=== PATIENT | male | born 1935 | race Caucasian/White ===

== ENCOUNTER 2018-03-16 16:09 | Inpatient (IN) ==
[2018-03-16] MEDS ORDERED: TORADOL IM ONE (17:25)
--- NOTE | 2018-03-16 17:26 | Diag Imaging Result Doc PS360 ---
XRAY PELVIS W/HIP 2-3VW LT - 03/16/2018 INDICATION: fall TECHNIQUE: Four views COMPARISON: 12/13/2012 FINDINGS: There is nondisplaced, impacted fracture at the left femoral neck. There is bilateral hip osteoarthritis. There are vascular stents in the distal aorta and pelvic arteries. IMPRESSION: Nondisplaced subcapital left hip fracture. Electronically signed by Kash Engle 03/16/2018 5:24 PM
--- NOTE | 2018-03-16 17:27 | Diag Imaging Result Doc PS360 ---
SHOULDER-LEFT - 03/16/2018 INDICATION: fall TECHNIQUE: Three views COMPARISON: None FINDINGS: Bones are intact and normally aligned. There is significant hypertrophic degeneration of the acromioclavicular joint. There is mild degeneration of the glenohumeral joint. IMPRESSION: No acute disease. Electronically signed by Kash Engle 03/16/2018 5:25 PM
--- NOTE | 2018-03-16 17:47 | PROVIDER DOCUMENTATION ---
This chart was entered by Al Rubio Scribe, acting as scribe for Nadja Hodge MD. HPI-Musculoskeletal Pain/Inj - GENERAL Source: patient - HX OF PRESENT ILLNESS-MUSKULOSKELTAL Quality of Pain: reports: aching Severity in ED: severe Onset/Duration: this afternoon Timing: still present Modifying Factors: improves with: nothing Any recent injury?: No - FALL INJURY Location of Pain/Injury: reports: upper extremity, pelvis Pain Radiation: reports: no radiation Reason for Fall: reports: tripped Symptoms prior to fall:: reports: none Loss of Consciousness: no loss of consciousness Injury Associated Symptoms: reports: trouble walking (pain with walking). denies: back/neck pain, dizziness, muscle aches, shortness of breath, unable to bear weight <Nadja Hodge - Last Filed: 03/16/18 19:36> <Scottie Diaz - Last Filed: 03/16/18 22:04> - GENERAL Chief Complaint: Hip Injury Stated Complaint: FALL/HURT HIP Time Seen by Provider: 03/16/18 17:15 - HX OF PRESENT ILLNESS-MUSKULOSKELTAL Nature of Presenting Problem: Pt is a 82 y/o M reports he tripped off the curb landing on his left hip and left shoulder this afternoon.. Pt complains of pain in each of them. The friend presents says the Medic and school bus driver had to help him get up and the pt did not want to come to the ED at that time. (Nadja Hodge) Pt is a 82 y/o M reports he tripped off the curb landing on his left hip and left shoulder this afternoon.. Pt complains of pain in each of them. The friend presents says the Medic and school bus driver had to help him get up and the pt did not want to come to the ED at that time. (Al Rubio) Review of Systems - Adult - REVIEW OF SYSTEMS - ADULT Constitutional: denies: chills, fever Eyes: reports: no symptoms reported Ears, Nose, Mouth & Throat: reports: no symptoms reported Cardiovascular: reports: no symptoms reported Respiratory: denies: cough, shortness of breath, wheezing Gastrointestinal: denies: abdominal pain, nausea, vomiting Genitourinary: reports: no symptoms reported Musculoskeletal: reports: joint pain (left hip and shoulder). denies: back pain , neck pain Integumentary: reports: no symptoms reported Neurological: denies: dizziness/vertigo, headache/migraines Psychiatric: reports: no symptoms reported Endocrine: reports: no symptoms reported Hematologic/Lymphatic: reports: no symptoms reported Allergic/Immunologic: reports: no symptoms reported All Other Systems: Reviewed and Negative <Nadja Hodge - Last Filed: 03/16/18 19:36> Past History - Adult - PAST MEDICAL HISTORY-ADULT Review of Records: reports: Old Records Reviewed, Nursing Assessment Review, Medications Reviewed Respiratory: reports: cancer (left lung) - PRIOR SURGERIES/PROCEDURES Surgical/Procedure History: reports: orthopedic (extremity), other (lobectomy) - IMMUNIZATION STATUS Childhood Immunizations: See Nurse Assessment Flu Vaccine: See Nurse Assessment - SOCIAL HISTORY Smoking: quit greater than 1 year Substance Use: none/never Living Situation: family <Nadja Hodge - Last Filed: 03/16/18 19:36> Physical Exam-Injury Related - Physical Exam-Injury Related Initial Vital Signs Reviewed: Yes General Appearance: appears well, alert, no apparent distress Eyes: PERRL/EOMI, pink conjunctivae Head, Ears, Nose, Mouth & Throat: moist mucous membranes, normal ENT inspection , TMs normal, pharynx normal Neck: full range of motion, supple, normal inspection Respiratory: lungs clear, normal breath sounds, no pleuratic chest pain, no respiratory distress, no accessory muscle use Cardiovascular: normal peripheral pulses, regular rate, rhythm Abdominal Exam: normal bowel sounds, non tender, soft Back Exam: normal inspection, no CVA tenderness Extremity: pelvis stable, tenderness (both shoulder and hip tender). negative: normal range of motion (pt had diffiuculty moving from wheel chair to strecther. Unable to lift his leg.) Integumentary: normal color, warm/dry Neurologic: grossly normal, no motor/sensory deficits Psych/Mental Status: normal mood/affect, normal thought content, normal thought process, oriented x 3 <Nadja Hodge - Last Filed: 03/16/18 19:36> Progress - PLAN OF CARE/RESULTS Result Diagrams: 03/16/18 18:20 03/16/18 18:20 - REASSESSMENT Reassessment #1 Time Reassessed: :35 (Ressessed by Dr Diaz) Status: unchanged (Pt complains the left hip still hurts. He also mentions that he is SOB after admission) - EKG 1 Time of EKG reading by physician:: 19:32 EKG Read and Signed by:: Scottie Diaz EKG Interpretation (*Must complete 3 of following elements*): Abnormal Rate: 96 Rhythm: NSR Comments: Nonspecific ST abnormality - XRAY 1 XRAY: Left XRAY Study: Hip Impression: Abnormal ( INDICATION: fall TECHNIQUE: Four views COMPARISON: 12/13/2012 FINDINGS: There is nondisplaced, impacted fracture at the left femoral neck. There is bilateral hip osteoarthritis. There are vascular stents in the distal aorta and pelvic arteries. IMPRESSION: Nondisplaced subcapital left hip fracture. Electronically signed by Kash Engle 03/16/2018 5:24 PM), See EMR Report 2 XRAY: Left XRAY Study: Shoulder Impression: Normal (INDICATION: fall TECHNIQUE: Three views COMPARISON: None FINDINGS: Bones are intact and normally aligned. There is significant hypertrophic degeneration of the acromioclavicular joint. There is mild degeneration of the glenohumeral joint. IMPRESSION: No acute disease. Electronically signed by Kash Engle 03/16/2018 5:25 PM), See EMR Report - CT/MRI 1 CT Study: Pelvis Impression: Abnormal (CT PELVIS W/O CONTRAST - 03/16/2018 INDICATION: fall with hip pain COMPARISON: X-rays from earlier today FINDINGS: There is an impacted nondisplaced fracture of the left femoral neck. No other fractures. No dislocation. There are stents in the distal aorta and both common iliac arteries. IMPRESSION: Nondisplaced subcapital left hip fracture. This exam was performed using automated exposure control, adjustment of mA or kV according to patient size, and/or use of iterative reconstruction technique Electronically signed by Kash Engle 03/16/2018 6:58 PM 03/16/18 9823 Interpreting Physician: Kash Engle MD Dictated Date/Time: 03/16/18 1301), See EMR Report - CONSULTS/PCP/HOSPITALIST Notification #1 *Consult/PCP/Hospitalist*: PCP, Dr Lange international affairs vice president for Dr Carrington- Time Discussed: 19:10 Reason/Comments: admit Consult Disposition: Will see in ED, Admit (accepts) #2 Consult: Ortho-Dr Xiao Time Discussed: 19:19 Consult Disposition: other (will consult) - CHANGE OF SHIFT REPORT (ED Provider) Report Given and Care Transferred to:: Dr Diaz Time of Transfer: 17:47 Items Pending: CT/MRI Results <Nadja Hodge - Last Filed: 03/16/18 19:36> - PLAN OF CARE/RESULTS Result Diagrams: 03/16/18 18:20 03/16/18 18:20 <Scottie Diaz - Last Filed: 03/16/18 22:04> - PLAN OF CARE/RESULTS Progress/Plan/Lab Results: Vital Signs - 8 hr 03/16/18 16:20 Temperature 98.5 F Pulse Rate 85 Respiratory Rate 18 Blood Pressure 136/88 O2 Sat by Pulse Oximetry 90 L Laboratory Results - last 24 hr 03/16/18 03/16/18 03/16/18 18:20 18:20 18:20 WBC 17.71 H RBC 4.65 L Hgb 14.7 Hct 44.0 MCV 94.6 MCH 31.6 H MCHC 33.4 RDW Std Deviation 14.9 H Plt Count 216 MPV 9.7 Immature Gran % (Auto) 0.3 Neut % (Auto) 85.9 H Lymph % (Auto) 8.4 L Beaver % (Auto) 5.1 Eos % (Auto) 0.2 Baso % (Auto) 0.1 Immature Gran # (Auto) 0.05 H Neut # (Auto) 15.22 H Lymph # (Auto) 1.49 Beaver # (Auto) 0.90 H Eos # (Auto) 0.04 Baso # (Auto) 0.01 PT INR PTT (Actin FS) Specimen Type Sample Site pH pCO2 pO2 HCO3 Base Excess Oxyhemoglobin ABG O2 Sat (Calculated) ABG O2 Saturation ABG Carboxyhemoglobin ABG Methemoglobin Ramakrishna Test A-a O2 Difference Total Hemoglobin Lactate Liter Flow Blood Gas Modality FiO2 % Sodium 142 Potassium 4.7 Chloride 103 Carbon Dioxide 25 Anion Gap 14 BUN 27 H Creatinine 1.1 Estimated GFR/1.73 m2 > 60 BUN/Creatinine Ratio 25 Glucose 130 H Calculated Osmolality 290 Calcium 9.5 Total Bilirubin 0.59 AST 19 ALT 13 Alkaline Phosphatase 57 Creatine Kinase Troponin T < 0.010 Qmq-B-Zihvhpeuxnb Pept Total Protein 7.8 Albumin 4.3 Globulin 3.5 Albumin/Globulin Ratio 1.2 03/16/18 03/16/18 03/16/18 18:20 18:20 18:20 WBC RBC Hgb Hct MCV MCH MCHC RDW Std Deviation Plt Count MPV Immature Gran % (Auto) Neut % (Auto) Lymph % (Auto) Beaver % (Auto) Eos % (Auto) Baso % (Auto) Immature Gran # (Auto) Neut # (Auto) Lymph # (Auto) Beaver # (Auto) Eos # (Auto) Baso # (Auto) PT 13.1 INR 0.92 PTT (Actin FS) 36.9 Specimen Type Sample Site pH pCO2 pO2 HCO3 Base Excess Oxyhemoglobin ABG O2 Sat (Calculated) ABG O2 Saturation ABG Carboxyhemoglobin ABG Methemoglobin Ramakrishna Test A-a O2 Difference Total Hemoglobin Lactate Liter Flow Blood Gas Modality FiO2 % Sodium Potassium Chloride Carbon Dioxide Anion Gap BUN Creatinine Estimated GFR/1.73 m2 BUN/Creatinine Ratio Glucose Calculated Osmolality Calcium Total Bilirubin AST ALT Alkaline Phosphatase Creatine Kinase 119 Troponin T Dxm-X-Vgsjgxooexo Pept 692 H Total Protein Albumin Globulin Albumin/Globulin Ratio 03/16/18 20:00 WBC RBC Hgb Hct MCV MCH MCHC RDW Std Deviation Plt Count MPV Immature Gran % (Auto) Neut % (Auto) Lymph % (Auto) Beaver % (Auto) Eos % (Auto) Baso % (Auto) Immature Gran # (Auto) Neut # (Auto) Lymph # (Auto) Beaver # (Auto) Eos # (Auto) Baso # (Auto) PT INR PTT (Actin FS) Specimen Type ARTERIAL Sample Site R RADIAL pH 7.33 L pCO2 42 pO2 84 HCO3 21.9 Base Excess -3.8 L Oxyhemoglobin 94.7 L ABG O2 Sat (Calculated) 20.7 ABG O2 Saturation 97.2 ABG Carboxyhemoglobin 1.80 ABG Methemoglobin 0.9 Ramakrishna Test YES A-a O2 Difference 577.0 Total Hemoglobin 15.5 Lactate 1.50 Liter Flow 15.0 Blood Gas Modality NRB FiO2 % 100.0 Sodium Potassium Chloride Carbon Dioxide Anion Gap BUN Creatinine Estimated GFR/1.73 m2 BUN/Creatinine Ratio Glucose Calculated Osmolality Calcium Total Bilirubin AST ALT Alkaline Phosphatase Creatine Kinase Troponin T Geu-C-Unlnqzovniy Pept Total Protein Albumin Globulin Albumin/Globulin Ratio Orders Category Date Time Status Admit - [facility] Routine AdmDCTranf 03/16/18 20:21 Active Luu Cath Insertion ORDERED Care 03/16/18 20:15 Active Repeat Vital Signs .Blood Pressure Care 03/16/18 19:36 Active io [Intake and Output As Ordered] Q 8-HR ASSESS Care 03/16/18 20:15 Active CHEST-PORTABLE [RAD] Stat Exams 03/16/18 19:[address] PELVIS W/O CONTRAST [CT] Stat Exams 03/16/18 17:22 Completed SHOULDER-LEFT [RAD] Stat Exams 03/16/18 16:30 Completed XRAY PELVIS W/HIP 2-3VW LT [RAD] Stat Exams 03/16/18 16:29 Completed ABG [RESP] Routine Lab 03/16/18 20:00 Completed ABG [RESP] Routine Lab 03/17/18 06:00 Ordered BASIC METABOLIC PANEL [CHEM] Routine Lab 03/17/18 06:00 Ordered BC [BLOOD CULTURE] [BLDCUL] Stat Lab 03/16/18 19:57 Results BNP [PRO B-NATRIURETIC PEPTIDE] Stat Lab 03/16/18 18:20 Completed CBC WITH DIFF [HEME] Routine Lab 03/17/18 06:00 Ordered CBC WITH ELECTRONIC DIFF [HEME] Stat Lab 03/16/18 18:20 Completed CMP [COMPREHENSIVE METABOLIC PANEL] [CHEM] Stat Lab 03/16/18 18:20 Completed Cardiac Profile [CK PROFILE] [SP CHEM] Stat Lab 03/16/18 20:50 Ordered PRO B-NATRIURETIC PEPTIDE Routine Lab 03/17/18 06:00 Ordered PT [PROTIME WITH INR] [COAG] Stat Lab 03/16/18 18:20 Completed PTT [COAG] Stat Lab 03/16/18 18:20 Completed TROPONIN T Stat Lab 03/16/18 18:20 Completed Albuterol 2.5MG/Ipratrop 0.5MG [Duoneb (A & A)] Med 03/16/18 19:38 Discontinued 3 ml INH NOW ONE Albuterol 2.5MG/Ipratrop 0.5MG [Duoneb (A & A)] Med 03/16/18 23:30 Active 3 ml INH RTQ4H Ketorolac [Toradol] Med 03/16/18 17:25 Discontinued 60 mg IM NOW ONE Metoprolol Succinate E.r. [Toprol Xl] Med 03/17/18 09:00 Active 100 mg PO DAILY Pantoprazole [Protonix] Med 03/16/18 21:00 Active 40 mg PO BID Aerosol Treatments Routine Oth 03/16/18 19:38 Active Aerosol Treatments Routine Oth 03/16/18 20:14 Active Aerosol Treatments Stat Oth 03/16/18 19:38 Active Aerosol Treatments Stat Oth 03/16/18 20:14 Active Transfer/Admit Order [TRANSFER] Routine Transfer 03/16/18 20:19 Completed Reviewed case with Dr Coleman, Hospitalist, for admission but he informed PCP is Dr Carrington. Jared requests to contact Dr Carrington for the attending. (Al Rubio) Shortly after admit called, pts nurse noted that he was getting SOB and applied oxygen. SOB workup started in ER. Dr Lange to [place] and aware of SOB. (Scottie Diaz) Departure - Departure Date of Disposition Decision: 03/16/18 Time of Disposition Decision: 19:15 Certified Medical Emergency: Emergent - Critical Care Note This patient required my direct & personal management of CC.: No <Najda Hodge - Last Filed: 03/16/18 19:36> <Scottie Diaz - Last Filed: 03/16/18 22:04> - Departure DIAGNOSIS: Pneumonia, CHF (congestive heart failure) Hip fracture, left Qualifiers: Encounter type: initial encounter Fracture type: closed Qualified Code(s): S72.002A - Fracture of unspecified part of neck of left femur, initial encounter for closed fracture Disposition: ADMITTED INPATIENT 09 Condition: Good Attestation - Physician/ ROBBIN Attestation Patient care was provided by Advanced Practice Provider:: No The physician spent face to face time with patient:: Yes Advanced Practice Provider documentation review:: Supervising physician onsite and consulted in the evaluation and care of this patient. The physician did have a face to face encounter with the patient. <Nadja Hodge - Last Filed: 03/16/18 19:36> This chart was documented by the indicated scribe, (Speegle,Al, Scribe) and accurately reflects the services I performed and decisions made by me, Nadja Hodge MD, as attested by the provider's signature.
[2018-03-16 18:41] LABS: BASO# 0.01 X1000 (0.0-0.2); BASO% 0.1 % (0.0-0.8); EOS# 0.04 X1000 (0.0-0.7); EOS% 0.2 % (0.0-10.0); HEMOGLOBIN 14.7 g/dL (14.0-18.0); IMM GRAN# 0.05 X1000 (0.0-0.04); IMM GRAN% 0.3 % (0.0-0.5); LYMPH# 1.49 X1000 (1.2-3.4); LYMPH% 8.4 % (20.5-51.1); MCH 31.6 PG (27-31); MCHC 33.4 g/dL (33-37); MCV 94.6 FL (81-99); MONO% 5.1 % (1.7-9.3); MPV 9.7 FL (7.4-10.4); NEUT# 15.22 X1000 (1.4-6.5); NEUT% 85.9 % (42.2-75.2); PLT 216 X1000 (130-400); RBC 4.65 XMIL (4.7-6.1); RDW 14.9 % (11.5-14.5); WBC 17.71 X1000 (4.8-10.8)
[2018-03-16 18:52] LABS: AGAP 14; ALB/GLOB RATIO 1.2; ALBUMIN 4.3 g/dL (3.5-5.0); ALKALINE PHOSPHATASE 57 U/L (32-122); BUN 27 mg/dL (8-22); CALCIUM 9.5 mg/dL (8.8-10.2); CHLORIDE 103 mmol/L (98-107); COSMO 290; CREATININE 1.1 mg/dL (0.7-1.2); ESTIMATED GFR > 60; GLUCOSE 130 mg/dL (70-104); GOT 19 U/L (10-34); GPT 13 U/L (10-44); POTASSIUM 4.7 mmol/L (3.5-5.1); SODIUM 142 mmol/L (136-145); TCO2 25 mmol/L (25-35); TOTAL BILIRUBIN 0.59 mg/dL (0.20-1.00); TOTAL PROTEIN 7.8 g/dL (6.3-8.3)
--- NOTE | 2018-03-16 19:01 | Diag Imaging Result Doc PS360 ---
CT PELVIS W/O CONTRAST - 03/16/2018 INDICATION: fall with hip pain COMPARISON: X-rays from earlier today FINDINGS: There is an impacted nondisplaced fracture of the left femoral neck. No other fractures. No dislocation. There are stents in the distal aorta and both common iliac arteries. IMPRESSION: Nondisplaced subcapital left hip fracture. This exam was performed using automated exposure control, adjustment of mA or kV according to patient size, and/or use of iterative reconstruction technique Electronically signed by Kash Engle 03/16/2018 6:58 PM
[2018-03-16] MEDS ORDERED: DUONEB (A & A) INH ONE (19:38)
[2018-03-16 20:06] LABS: ALLEN TEST YES; BE -3.8 mmoll (-3.0-3.0); BLOOD TYPE ARTERIAL; HCO3-(ACT) 21.9 mmoll (20.0-26.0); METHB 0.9 % (0.0-1.5); O2(CT) 20.7 mL/dL (15.0-23.0); O2HB 94.7 % (95.0-99.0); PCO2(98.6) 42 mmHg (35-45); PO2(98.6) 84 mmHg (60-100); SAMPLE BLOOD; SAO2 97.2 % (95.0-100.0); THB 15.5 g/dL (11.5-17.4); pH(98.6) 7.33 (7.35-7.45)
[2018-03-16 20:08] LABS: MODALITY NRB
[2018-03-16] MEDS: LASIX IV SCH (20:45)
[2018-03-16] MEDS: LEVAQUIN 500 MG/D5W 500 MG/100 ML IVPB IV SCH (20:45)
[2018-03-16] MEDS: PROTONIX PO SCH (21:00)
--- NOTE | 2018-03-16 21:19 | Diag Imaging Result Doc PS360 ---
CHEST-PORTABLE - 03/16/2018 INDICATION: sob COMPARISON: 07/03/2017 FINDINGS: There are extensive bilateral interstitial infiltrates. Stable surgical changes of the left lung reminiscent of a prior lobectomy. Heart size is top normal. There is advanced COPD. IMPRESSION: Extensive bilateral infiltrates compatible with pulmonary edema or pneumonia. Electronically signed by Kash Engle 03/16/2018 9:16 PM
[2018-03-16 21:24] LABS: INR 0.92; PROTIME 13.1 Seconds (11.0-16.0)
[2018-03-16 21:25] LABS: PTT 36.9 Seconds (22.3-41.8)
[2018-03-16] MEDS: DUONEB (A & A) INH SCH (23:51)
[2018-03-17 00:25] LABS: URINE SOURCE CATH
[2018-03-17 00:32] LABS: BILIRUBIN URINE NEGATIVE (NEGATIVE); BLOOD URINE NEGATIVE (NEGATIVE); COLOR YELLOW; GLUCOSE URINE NEGATIVE (NEGATIVE); KETONE URINE NEGATIVE (NEGATIVE); LEUKOCYTES URINE NEGATIVE (NEGATIVE); NITRITE URINE NEGATIVE (NEGATIVE); PH URINE 5.5; PROTEIN URINE 30 mg/dL (NEGATIVE); SP GRAVITY URINE 1.009; TURBIDITY URINE CLEAR (CLEAR); UR EPITHELIAL CELLS <10 /HPF (<10); URINE BACTERIA NEGATIVE /HPF; URINE RBC <10 /HPF (<10); URINE WBC <10 /HPF (<10); UROBILINOGEN URINE NORMAL (NORMAL)
[2018-03-17] MEDS: MORPHINE IV PRN ×3 (00:53→21:59)
[2018-03-17] MEDS: DUONEB (A & A) INH SCH ×6 (03:36→23:03)
[2018-03-17 04:37] LABS: ALLEN TEST YES; BE -0.7 mmoll (-3.0-3.0); BLOOD TYPE ARTERIAL; HCO3-(ACT) 24.2 mmoll (20.0-26.0); METHB 0.9 % (0.0-1.5); O2(CT) 18.6 mL/dL (15.0-23.0); O2HB 91.3 % (95.0-99.0); PCO2(98.6) 36 mmHg (35-45); PO2(98.6) 58 mmHg (60-100); SAMPLE BLOOD; SAO2 94.9 % (95.0-100.0); THB 14.5 g/dL (11.5-17.4); pH(98.6) 7.42 (7.35-7.45)
[2018-03-17 04:39] LABS: BASO# 0.04 X1000 (0.0-0.2); BASO% 0.2 % (0.0-0.8); EOS# 0.25 X1000 (0.0-0.7); EOS% 1.5 % (0.0-10.0); HEMATOCRIT 41.3 % (42.0-52.0); HEMOGLOBIN 14.1 g/dL (14.0-18.0); IMM GRAN# 0.04 X1000 (0.0-0.04); IMM GRAN% 0.2 % (0.0-0.5); LYMPH# 1.47 X1000 (1.2-3.4); LYMPH% 8.7 % (20.5-51.1); MCHC 34.1 g/dL (33-37); MCV 93.7 FL (81-99); MONO# 0.83 X1000 (0.11-0.59); MONO% 4.9 % (1.7-9.3); MPV 9.6 FL (7.4-10.4); NEUT# 14.29 X1000 (1.4-6.5); NEUT% 84.5 % (42.2-75.2); PLT 203 X1000 (130-400); RBC 4.41 XMIL (4.7-6.1); RDW 14.9 % (11.5-14.5); WBC 16.92 X1000 (4.8-10.8)
[2018-03-17 04:39] LABS: MODALITY VENTIMASK
[2018-03-17 05:43] LABS: CALCIUM 8.8 mg/dL (8.8-10.2); CREATININE 1.5 mg/dL (0.7-1.2); POTASSIUM 4.6 mmol/L (3.5-5.1)
--- NOTE | 2018-03-17 08:09 | EKG Report ---
Test Performed on : 03/16/2018 7:32:57 PM Test Reason : SOB Blood Pressure : / mmHG Vent. Rate : 096 BPM Atrial Rate : 096 BPM P-R Int : 192 ms QRS Dur : 098 ms QT Int : 370 ms P-R-T Axes : 063 074 066 degrees QTc Int : 467 ms Normal sinus rhythm. Possible Left atrial enlargement Nonspecific ST abnormality Abnormal ECG When compared with ECG of 03-JUL-2017 20:23, (Unconfirmed) Non-specific change in ST segment in Inferior leads Confirmed by Eva TODD, Samson Mejia ([id number]) on 03/17/2018 3:25:54 PM
[2018-03-17] MEDS: LASIX IV SCH ×2 (09:19→21:00)
[2018-03-17] MEDS: PROTONIX PO SCH ×2 (09:20→21:00)
[2018-03-17] MEDS: TOPROL XL PO SCH (09:20)
--- NOTE | 2018-03-17 09:58 | HISTORY AND PHYSICAL ---
CHIEF COMPLAINT: Fall injuring his left hip and left shoulder area. The patient also with prominent dyspnea and work of breathing. HISTORY OF PRESENT ILLNESS: The patient is an 82-year-old white male followed by DR. Carrington. He presents to the ER after a fall he suffered outside [facility] today. He tripped over a curb and landed on his left hip and his left shoulder. X-ray left shoulder is negative, but the left hip shows a nondisplaced subcapital left hip fracture. 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 MEDICATIONS: Prior to admission are Icar-C 1 p.o. daily, Protonix 40 mg p.o. b.i.d., Toprol-XL 100 mg p.o. daily, and a statin that he takes at bedtime. ALLERGIES: NKDA. PAST MEDICAL HISTORY: 1. History of upper GI bleed due to duodenal ulcer back in June of 2017. 2. History of GI blood loss anemia in June of 2017. 3. Coronary artery disease with remote history of stent placement. 4. Hypertension. 5. Hypercholesterolemia. 6. History of right lung cancer with partial pneumonectomy. PAST SURGICAL HISTORY: 1. Coronary stent. 2. Partial pneumonectomy due to CA on the right. 3. Bilateral knee replacement. 4. Cataract surgery. 5. Left ankle surgery. FAMILY HISTORY: Noncontributory. SOCIAL HISTORY: The patient has been a heavy smoker in the past, but none in the past couple of years. Denies alcohol or drug use. 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 REVIEW OF SYSTEMS: Negative except as above. PHYSICAL EXAMINATION: VITAL SIGNS: Temperature 98.5 degrees, pulse 85, respirations 18, blood pressure 136/88, O2 saturation on room air 90%. GENERAL: Mildly obese white male in some discomfort lying at about a 40 degrees angle with some prominent work of breathing. He is on 100% per non-rebreather when I am evaluating. SKIN: Cool and clammy. CHEST: He denies chest pains. HEENT: PERRL. EOMI. Sclerae are clear. Oropharynx no redness. Tongue in the midline. NECK: No LA, TMG, or bruits. I believe he does have some JVD. CARDIOVASCULAR: RRR without murmur. LUNGS: Markedly reduced breath sounds on the right all the way. On the left there is mild-to- moderate expiratory wheezes with possible crackles. ABDOMEN: Soft, protuberant, active bowel sounds. EXTREMITIES: No calf tenderness, cords or edema. He is prominently tender about the left hip and mildly tender about the left shoulder. NEUROLOGIC: Cranial nerves II-XII are intact. He moves all extremities. He follows commands. He answers questions appropriately. LABORATORY DATA: White count 17.7, hemoglobin 14.7, hematocrit 44, platelets 216,000, neutrophils 86, lymphocytes 8.4, monocytes 5.1. ABG on 100% per non-rebreather reveals pH 7.33, pCO2 of 42, PO2 of 84, HC03 of 22, O2 saturation 97.2. Sodium 142, potassium 4.7, chloride 103, CO2 of 25, BUN 27, creatinine 1.1, glucose 130, calcium 9.5, total bilirubin 0.59, AST 19, ALT 13, alkaline phosphatase 57, total protein is 7.8, albumin 4.3. CT of the pelvis reveals nondisplaced subcapital left hip fracture as does the left hip x-ray. Left shoulder x-ray no acute disease. Chest x-ray appears to have CHF pattern with some haziness over the right lower lung field, rule out infiltrate. ASSESSMENT: 1. Respiratory failure. 2. Mechanical fall. 3. Subcapital nondisplaced left hip fracture. 4. Coronary artery disease. 5. History of right lung cancer. 6. Hypertension. 7. Hypercholesterolemia. 8. History of duodenal ulcer in June of 2017. PLAN: At this time we will admit the patient to the ICU. I believe his chest x-ray is consistent with CHF. We will give him Lasix and continue his Toprol he takes at home. We will place a Luu catheter, monitor strict I Os. Continue oral PPI. Place him on saline lock. Currently check serial cardiac enzymes and troponin levels. We will go ahead and cover him with antibiotics in light of his leukocytosis. We will check blood cultures x2 and UA with C and S. We will give him nebulizer treatments in the form of Duo Nebs. Continue oxygen supplementation. cc: Addison Lange MD
--- NOTE | 2018-03-17 09:58 | PROGRESS NOTE ---
DATE: 03/17/2018 SUBJECTIVE: The patient was admitted last night with left hip fracture and will need to go to surgery for that fracture but he also has developed either pulmonary edema or pneumonia with extensive bilateral infiltrates. He does have surgical changes from his lung cancer from 2002 and COPD. The patient says he started getting short of breath right after he fell. He did not hit his head. He hit his left shoulder and his left hip. His left shoulder x-ray was normal. OBJECTIVE: VITAL SIGNS: Blood pressure 137/77, respirations 25 on a Ventimask. Pulse is 90 and regular. Temperature is 98.6 degrees Fahrenheit. Blood gas yesterday right before midnight was 7.33 on the pH, PCO2 of 42, PO2 of 84. This morning, his PO2 is 58, PCO2 36, pH 7.42. Initially yesterday that was on 100% FIO2. This morning that is on 50% FIO2. He has not had heart failure in the past. His ProBNP yesterday was 692. This morning, it was 2275. He denies any chest pains. HEENT: Normocephalic, atraumatic. PERRLA. Throat clear. LUNGS: Wheezing and rales anteriorly. HEART: Regular rate and rhythm without murmurs, gallops or friction rubs. ABDOMEN: Soft, regular bowel sounds. No organomegaly or tenderness. NEUROLOGICAL: Intact grossly. The patient is alert and can carry on a conversation. ASSESSMENT: 1. Left hip fracture. 2. Respiratory distress. 3. Bronchospasm. 4. Pneumonia versus pulmonary edema. 5. Elevated ProBNP. 6. History of lung cancer. PLAN: We will consult Pulmonology. We will get an echocardiogram if his ProBNP is elevated. We will check cardiac enzymes. We will get an EKG if one has not already been done, I do not see one on the chart yet. CKs and troponins have already been ordered serially. cc: MD Addison Castro Jr, MD
--- NOTE | 2018-03-17 10:33 | CONSULTATION ---
DATE OF CONSULTATION: 03/17/2018 REASON FOR CONSULTATION: Left hip pain after a fall. HISTORY OF PRESENT ILLNESS: Scottie Richardson is an 82-year-old with a past medical history of coronary artery disease, hypertension, hyperlipidemia and a right total knee replacement. Apparently, he was at home yesterday when he had a fall. He was brought to the [facility] Emergency Department. He complained of left hip and left shoulder pain on arrival to the emergency room. A hip x-ray and pelvis CT did show a nondisplaced left subcapital hip fracture. He also had significant labored breathing and was requiring supplemental O2. His O2 demands continued to increase and he was placed on 100% nonrebreather. It was decided because of his high oxygen demand he be sent to the ICU. Patient denied loss of consciousness or trauma to the head during this fall. He denied dizziness, headache or shortness of breath at the time of fall. He currently denies any chest pain. He is currently nonlabored with his breathing but is 90% with a nonrebreather. Orthopedics has been consulted for management of the left hip fracture. PAST MEDICAL HISTORY: 1. Coronary artery disease. 2. Hypertension. 3. Hyperlipidemia. PAST SURGICAL HISTORY: 1. Coronary stent. 2. Partial pneumonectomy. 3. Right total knee replacement. 4. Previous ORIF left ankle. ALLERGIES: No known drug allergies. CURRENT MEDICATIONS: 1. Protonix 40 mg p.o. b.i.d. 2. Pravachol 40 mg p.o. daily. 3. Metoprolol 100 mg p.o. daily. SOCIAL HISTORY: He is a former smoker. Denies alcohol or illicit drug use. He does still live at home. REVIEW OF SYSTEMS: A 10 point review of systems was completed and negative other than what was mentioned above in the HPI. PHYSICAL EXAMINATION: GENERAL: This is a friendly, well-appearing 82-year-old male in no acute distress. VITAL SIGNS: Temperature 98.6 degrees, pulse 85, respirations 20. He is currently 92% on 15 L. NEUROLOGICAL: He is alert and oriented x3 with no focal deficits. HEENT: Head is atraumatic, normocephalic. The pupils are equal, round and reactive to light. CV: Regular rate and rhythm. PULMONARY: His breathing is currently even and unlabored. He does have decreased breath sounds. ABDOMEN: Appears nondistended. EXTREMITIES: He does have some tenderness to palpation on the left hip. He does have sensation of that lower limb. He is able to dorsi and plantar flex the ankle. He has a 2+ pedal pulse and good capillary refill. He has no tenderness to palpation of the left shoulder although he does have some pain with range of motion. All hand intrinsics are intact. There are no skin ulcerations or abrasions anywhere. No significant bruising noted. He denies pain in the other extremity. IMAGING: A pelvis CT as well as a left hip x-ray shows nondisplaced subcapital hip fracture. CURRENT LABORATORY DATA: His white count is 16.92, hemoglobin and hematocrit 14.1 and 41.3. His platelet count is 203,000. His INR is 0.92. BUN and creatinine 33 and 1.5. ASSESSMENT: Nondisplaced subcapital left hip fracture. PLAN: It sounds like Mr. Richardson was pretty mobile prior to his fall. We will plan on doing a closed reduction percutaneous pinning of this left hip. Dr. Butler has discussed risks and benefits of the procedure. Risks include but are not limited to damage to nerves, arteries, vein, hardware related issues, malunion, nonunion, continued pain, DVT, infection, poor wound healing and risks of general anesthesia. They have been able to reduce his oxygen demands this morning; however, we do want to get medical approval prior to doing his surgery. We will await to hear from Dr. Carrington to see if the patient is medically stable for surgery. If so, we will plan on doing this later today. We will make him NPO. If he is not considered medically stable, we will work towards getting him tuned up and get surgery scheduled as soon as he is able. Dictated by FRANCIS Mendoza for Charbel Butler MD cc: FRANCIS Mendoza MD Stephen W. Harbin, MD
--- NOTE | 2018-03-17 20:15 | PULMONOLOGY CONSULTATION ---
DATE: 03/17/2018 REQUESTING PHYSICIAN: Dr. Carrington. REASON FOR CONSULTATION: Respiratory failure. HISTORY OF PRESENT ILLNESS: Mr. Richardson is an 82-year-old white male with severe COPD, status post left upper lobectomy in 1999, history of coronary artery disease who was carrying a bag, tripped and fell. The patient required EMT to help him get up. The patient had significant left hip pain. He presented to the emergency room and had a nondisplaced subcapital left hip fracture. He underwent a chest x-ray which revealed new infiltrates, right greater than left, along with significant increase in oxygen requirements. He has a cough without significant sputum production. He denies fevers or chills. He is now on a non-rebreather mask. PAST MEDICAL HISTORY: Problem list: 1. Lung cancer as per above. 2. Coronary artery disease status post stent placement as per above. 3. Prostate enlargement. 4. Osteoarthritis. 5. Status post bilateral knee replacements. 6. History of cardiac dysrhythmia. 7. Mild to moderate pulmonary hypertension noted on echocardiogram in 2014. 8. Dyslipidemia. 9. Hypertension. SOCIAL HISTORY: The patient has extensive tobacco history in the past, but none recently. FAMILY HISTORY: Noncontributory. REVIEW OF SYSTEMS: As outlined in the HPI. PHYSICAL EXAMINATION: General: Reveals an elderly white male who appears his stated age. Vital Signs: Current temperature 99.5, heart rate 98, respiratory rate 24, oxygen saturation 93%, blood pressure 116/68. HEENT: Pupils are equal and reactive. Oropharynx is clear. Neck: Supple. Chest: Reveals prolonged expiratory phase with minimal wheezing. Cardiac: S1, S2. Abdomen: Soft. Extremities: Reveal trace edema. LABORATORIES: Arterial blood gas this morning: PH 7.42, pCO2 of 36, PO2 of 58. White blood count 16.92, hemoglobin 14.1, platelet count 203,000. ProBNP last evening was 692. ProBNP this morning was 2275. Chest x-ray yesterday reveals volume loss on the left, with bilateral infiltrates and extensive COPD. White blood count 16.92, hemoglobin 14.1 with a left shift. IMPRESSION: An 82-year-old white male with severe COPD, acute hypoxemic respiratory failure, leukocytosis, and increase in proBNP level. The patient denies fevers, chills or sputum production prior to admission to the hospital. The patient had an apparent acute decompensation in pulmonary status. With the current laboratory findings, it is difficult to decide whether this represents a pneumonia or a heart failure event. With the acute radiographic changes, acute hypoxemia, with lack of other symptoms and I suspect that he has a component of heart failure related to the stress of the hip fracture. The patient has known severe COPD and severe pulmonary hypertension, which is currently complicating his picture. RECOMMENDATIONS: 1. Agree with broad-spectrum antibiotics pending improvement in leukocytosis. 2. Agree with plans for gentle diuresis as tolerated. 3. Cautious use of steroids if he develops significant wheezing, but currently he has minimal wheezing. 4. Followup chest x-ray tomorrow, along with chemistries. cc: MD Addison James MD
[2018-03-17] MEDS: LEVAQUIN 500 MG/D5W 500 MG/100 ML IVPB IV SCH (21:00)
[2018-03-17] MEDS: FLEXERIL PO SCH (22:37)
[2018-03-18] MEDS: DUONEB (A & A) INH SCH ×6 (03:24→23:17)
[2018-03-18] MEDS: MORPHINE IV PRN ×2 (03:46→18:03)
[2018-03-18 04:33] LABS: BASO# 0.04 X1000 (0.0-0.2); BASO% 0.3 % (0.0-0.8); EOS% 3.9 % (0.0-10.0); HEMATOCRIT 43.9 % (42.0-52.0); HEMOGLOBIN 14.6 g/dL (14.0-18.0); IMM GRAN# 0.09 X1000 (0.0-0.04); IMM GRAN% 0.7 % (0.0-0.5); LYMPH# 1.24 X1000 (1.2-3.4); LYMPH% 9.6 % (20.5-51.1); MCHC 33.3 g/dL (33-37); MCV 96.3 FL (81-99); MONO# 0.81 X1000 (0.11-0.59); MONO% 6.3 % (1.7-9.3); MPV 10.3 FL (7.4-10.4); NEUT# 10.18 X1000 (1.4-6.5); NEUT% 79.2 % (42.2-75.2); PLT 165 X1000 (130-400); RBC 4.56 XMIL (4.7-6.1); RDW 15.7 % (11.5-14.5); WBC 12.86 X1000 (4.8-10.8)
--- NOTE | 2018-03-18 07:06 | PROGRESS NOTE ---
DATE: 03/18/2018 SUBJECTIVE DATA: Mr. Richardson is lying in bed. He is a little short of breath this morning. He states he is not feeling a whole lot better this morning. He is complaining that his mouth is very dry. OBJECTIVE DATA: He is a little diaphoretic this morning. His breathing is labored. He is slightly tachycardic. Current Vital Signs: Heart rate is 102, respiratory rate is 25, blood pressure is 142/72. He is 94% on a nonrebreather. Left Lower Extremity: He is still operator to touch. He has a 2+ pedal pulse. He has good sensation. He is able to dorsi and plantar flex the foot. The shoulder feels a little bit better this morning. ASSESSMENT: Nondisplaced subcapital left hip fracture. PLAN: I think we are going to give Mr. Richardson another day to wean down on his oxygen. It looks like they are trying to work him up to see if this is more of a respiratory or cardiac event. It does look like they are diuresing him as well. This way, he can have another day to diurese as well. We are fine with him eating and drinking today if the medical team is okay with that. We will work on trying to do his surgery on . Again, it would be a closed reduction and percutaneous pinning of the left hip. We will discuss care with the medical team. Dictated by FRANCIS Mendoza for Charbel Butler MD cc: FRANCIS Mendoza MD Stephen W. Harbin, MD
--- NOTE | 2018-03-18 07:27 | Diag Imaging Result Doc PS360 ---
EXAM: CHEST-PORTABLE HISTORY: respiratory failure TECHNIQUE: Portable chest single view COMPARISON: 03/16/2018 FINDINGS: The lungs are well expanded. There are surgical clips in the left hilum. There is apical pleural thickening and scarring. Persistent infiltrates with basilar atelectasis. These findings are more prominent than on the prior study. There may be trace pleural fluid. IMPRESSION: No interval improvement. Electronically signed by Valentin Russo 03/18/2018 7:24 AM
--- NOTE | 2018-03-18 07:45 | ECHO REPORT ---
ORDER DATE: 03/17/2018 ECHOCARDIOGRAPHIC MEASUREMENTS: 1. Left ventricular end-diastolic diameter 3.9. 2. End-systolic diameter 2.6. 3. Septal thickness 1.5. 4. Posterior wall thickness 1.5. 5. Aortic root 3.6. SUMMARY: 1. Technically difficult study due to limited acoustic window quality. Intravenous echo contrast agent Definity was utilized to enhance endocardial definition. 2. Aortic valve is trileaflet and opens normally on 2-dimensional images. Peak gradient across the valve is less than 10 mmHg. Mitral and tricuspid valves are without evidence of structural abnormality, while pulmonic valve is not well demonstrated. The estimated systolic PA pressure by Doppler as 75 mmHg. Moderate to severe pulmonary hypertension suggested. The aortic root is normal in size. 3. Normal left ventricular chamber size with moderate concentric left hypertrophy is demonstrated. Estimated left ventricular ejection fraction appears to be at least 65%. No regional wall motion abnormalities are evident. Doppler suggests grade 1 left ventricular diastolic dysfunction. Left atrium, right atrium and right ventricle are normal in size with grossly preserved right ventricular systolic function. 4. No pericardial effusion. 5. Appearance of inferior vena cava suggests normal central venous pressure. cc: MD Domingo Burns Jr, MD Stephen W. Harbin, MD
[2018-03-18] MEDS: LASIX IV SCH (07:46)
[2018-03-18] MEDS: PROTONIX PO SCH ×2 (09:24→21:12)
[2018-03-18] MEDS: TOPROL XL PO SCH (09:24)
--- NOTE | 2018-03-18 09:25 | PROGRESS NOTE ---
DATE: 03/18/2018 SUBJECTIVE: The patient still a little short of breath. Chest x-ray still shows bilateral infiltrates, worse on the left side. Still some question about whether this represents fluid from pulmonary edema or whether it is pneumonia. The patient has had a cough. Still has his hip pain. OBJECTIVE: Vital signs: Blood pressure is 134/74, respirations 21, pulse rate 78, temperature is 98.2 degrees Fahrenheit. HEENT: Normocephalic. Neck: Supple. Lungs: Have scattered rales and occasional wheeze. Heart: Regular rate and rhythm without murmurs, gallops , friction rubs. Abdomen: Soft. Active bowel sounds. No organomegaly or tenderness. Neurological: Cranial nerves 2-12 intact grossly. Sensory and motor intact. LABORATORY: Shows a white count 12,860, hemoglobin 14.6. Urinalysis was essentially normal. ASSESSMENT: 1. Respiratory distress. 2. Pulmonary edema versus pneumonia. 3. Left hip fracture. PLAN: I will place in some compression hose to prevent DVT. We will continue to diurese. Continue IV antibiotics. Appreciate help from Dr. Antoine. Please note, an echocardiogram was essentially normal. cc: MD Addison Castro Jr, MD MTDD
[2018-03-18 09:31] LABS: ALB/GLOB RATIO 1.3; CALCIUM 9.3 mg/dL (8.8-10.2); CREATININE 1.8 mg/dL (0.7-1.2); MAGNESIUM 2.2 mg/dL (1.5-2.7); PHOSPHORUS 3.3 mg/dL (2.7-4.5); POTASSIUM 4.1 mmol/L (3.5-5.1); TOTAL BILIRUBIN 0.88 mg/dL (0.20-1.00)
[2018-03-18] MEDS: LIPOSYN 20% 250 ML IV SCH (10:45)
[2018-03-18] MEDS: CLINIMIX E 4.25%-5% SOLUTION 1,000 ML IV SCH ×2 (10:45→23:55)
--- NOTE | 2018-03-18 13:15 | PULMONOLOGY PROGRESS NOTE ---
DATE: 03/18/2018 SUBJECTIVE: The patient is awake but he is weak. He has a relatively dry cough. He is having ongoing hip pain. OBJECTIVE: Vital Signs: The patient has been afebrile for the last 24 hours. BP is 134/74, heart rate 98, respiratory rate 21, and oxygen saturation 93% on nonrebreather. HEENT: Pupils are equal and reactive. Oropharynx is clear. Neck: Supple. Respiratory: Chest reveals prolonged expiratory phase with crackles at the right base. Cardiac: Increased rate. Regular rhythm. Abdomen: The abdomen is soft. Extremities: The extremities are warm to the touch. LABORATORIES: Chest x-ray reveals volume loss on the left with asymmetric infiltrates, most prominent at the right base and slightly more prominent than yesterday. White blood count is 12.86. Platelet count 165,000. Arterial blood gas reveals a pH of 7.42, pCO2 of 36, and pO2 of 58 on a 50% Ventimask. Chemistry reveals a sodium of 142, potassium 4.1, chloride 102, bicarbonate 24, BUN 37, and creatinine 1.8. ProBNP has decreased to 1,650. IMPRESSION: An 82-year-old with severe chronic obstructive pulmonary disease and remote history of lung cancer who is admitted to the hospital with acute hypoxemic respiratory failure, leukocytosis, and elevated proBNP. Diuresis has been attempted but his BUN and creatinine are rising and Lasix will need to be held. I suspect that he was becoming ill prior to the fall and likely has pneumonia. The patient's echocardiogram revealed some diastolic dysfunction along with significant pulmonary hypertension. Timing of hip repair will be difficult and he will always be at increased risk for any surgical procedures. The family is at the bedside and they are aware that it is difficult to predict his outcome. RECOMMENDATIONS: 1. Discontinue diuretics. 2. Continue antibiotics. 3. Continue oxygen. 4. We will initiate Clinimix and lipids for decreased p.o. intact. 5. Follow up chest x-ray tomorrow. 6. Orthopaedics is trying to decided the optimal window for surgical repair of the hip. cc: MD Addison James MD [facility]
[2018-03-18] MEDS: TEARISOL OPH SOLUTION BOTH EYES PRN (17:14)
[2018-03-18] MEDS: FLEXERIL PO SCH (21:12)
[2018-03-18] MEDS: LEVAQUIN 500 MG/D5W 500 MG/100 ML IVPB IV SCH (21:14)
[2018-03-19] MEDS: MORPHINE IV PRN ×4 (00:20→18:11)
[2018-03-19] MEDS: DUONEB (A & A) INH SCH ×7 (03:05→23:16)
[2018-03-19 06:53] LABS: BASO# 0.03 X1000 (0.0-0.2); BASO% 0.2 % (0.0-0.8); EOS# 0.89 X1000 (0.0-0.7); EOS% 7.3 % (0.0-10.0); HEMATOCRIT 38.5 % (42.0-52.0); HEMOGLOBIN 12.7 g/dL (14.0-18.0); IMM GRAN# 0.03 X1000 (0.0-0.04); IMM GRAN% 0.2 % (0.0-0.5); LYMPH# 0.85 X1000 (1.2-3.4); MCH 31.8 PG (27-31); MCV 96.5 FL (81-99); MONO# 1.03 X1000 (0.11-0.59); MONO% 8.5 % (1.7-9.3); MPV 10.1 FL (7.4-10.4); NEUT# 9.33 X1000 (1.4-6.5); NEUT% 76.8 % (42.2-75.2); PLT 147 X1000 (130-400); RBC 3.99 XMIL (4.7-6.1); RDW 15.2 % (11.5-14.5); WBC 12.16 X1000 (4.8-10.8)
[2018-03-19 07:11] LABS: CALCIUM 8.6 mg/dL (8.8-10.2); CREATININE 1.5 mg/dL (0.7-1.2)
--- NOTE | 2018-03-19 07:15 | PROGRESS NOTE ---
DATE: 03/19/2018 SUBJECTIVE DATA: Mr. Richardson is still laying in bed. His breathing looks a little bit better this morning. OBJECTIVE DATA: Left lower extremity exam: He does have tenderness to palpation. He does have pain with range of motion. He does have good sensation to the foot and can dorsi and plantar flex the foot. He is still on a non-rebreather. His breathing is a little bit less labored today. Vital signs: His heart rate is 96, blood pressure is 120/71, his respirations are 21. He is 97% on a non-rebreather. PERTINENT LABORATORY DATA: His white count is down to 12.86, hemoglobin and hematocrit is 14.6 and 43.9, platelet count is 165,000. Last INR is 0.92. BUN and creatinine is 37 and 1.8. His creatinine has come up a little bit with the diuresis. ASSESSMENT: Nondisplaced subcapital left hip fracture. PLAN: At this point, we do feel that we get him cleared for surgery and go ahead and proceed with the fixation of the hip. That would be the best thing for him, so we can get him up, get him to the chair, and get him moving. I think help mobilizing him would benefit his respiratory system. We are going to have Anesthesia come take a look at him today. If we can get him cleared for surgery, we will plan on doing this today at some point. He has been NPO since midnight. If anesthesia decides he is not medically stable for surgery, we will get him a diet. Dictated by FRANCIS Mendoza for Esther Reyes MD cc: FRANCIS Mendoza MD
--- NOTE | 2018-03-19 07:30 | Diag Imaging Result Doc PS360 ---
EXAM: CHEST-PORTABLE INDICATION: respiratory failure TECHNIQUE: One view COMPARISON: 03/18/2018 FINDINGS: Bilateral diffuse infiltrates with a basilar predominance are essentially stable. No new consolidation is identified. Cardiac silhouette is stable. IMPRESSION: Stable chest. Electronically signed by Miller Whitman 03/19/2018 7:28 AM
[2018-03-19] MEDS: TOPROL XL PO SCH (07:59)
[2018-03-19] MEDS: PROTONIX PO SCH ×2 (07:59→20:39)
--- NOTE | 2018-03-19 09:21 | PROGRESS NOTE ---
DATE: 03/19/2018 SUBJECTIVE: Patient states he is having still some pain in his left hip but he drops off to sleep fairly quickly. Family members are in the room and they are concerned that he is still in pain. We will try him in Cline's traction and see if that does not help. I am concerned about giving him too much morphine with his COPD. OBJECTIVE: Vital Signs: Blood pressure 129/72, respirations 25, pulse 96, temperature 98.6 degrees Fahrenheit. HEENT: He is normocephalic. EOMs intact. PERRLA. Throat clear. Lungs: Have a few rales anteriorly. Heart: Regular rate and rhythm without murmurs, gallops, or friction rubs. Abdomen: Soft. Active bowel sounds. No organomegaly or tenderness. Laboratory Data: Chest x-ray still shows bilateral infiltrates, most consistent with pneumonia. Diuresis has been stopped but he has diuresed fairly well and still has not had clearing of his lungs so I do not think that this is all pulmonary edema. I think that this is probably pneumonia. Creatinine did pop up initially from 1.1 to 1.5 to 1.8 and now today 1.5 again. Echocardiogram was essentially normal. Urinalysis is normal. White count this morning is 12,160, hemoglobin 12.7, hematocrit 38.5. ASSESSMENT: 1. Fractured left hip. 2. Pneumonia. 3. Chronic obstructive pulmonary disease. 4. Coronary artery disease. 5. Hypertension. 6. Hypercholesterolemia. 7. Status post lung cancer. PLAN: Surgery is wanting to go ahead and pin his hip. I would not put him to sleep at this time because of his pneumonia. I would rather postpone this or if they could do a different anesthesia, perhaps could treat it. We will get Dr. Antoine's opinion, who is a resource management specialist. cc: MD Addison Castro Jr, MD
[2018-03-19] MEDS: LIPOSYN 20% 250 ML IV SCH (11:45)
[2018-03-19] MEDS: TEARISOL OPH SOLUTION BOTH EYES PRN (11:53)
[2018-03-19] MEDS: CLINIMIX E 4.25%-5% SOLUTION 1,000 ML IV SCH ×2 (11:53→12:34)
[2018-03-19] MEDS ORDERED: DIPRIVAN 1% ONE ×2 (14:22→16:13)
[2018-03-19] MEDS ORDERED: XYLOCAINE-MPF 2% ONE (14:23)
[2018-03-19] MEDS ORDERED: KEFZOL 2 GM/D5W 2 GM/50 ML IVPB ONE (16:20)
--- NOTE | 2018-03-19 18:41 | OPERATIVE NOTE ---
PROCEDURE DATE: 03/19/2018 PREOPERATIVE DIAGNOSIS: Left valgus impacted femoral neck fracture. POSTOPERATIVE DIAGNOSIS: Left valgus impacted femoral neck fracture. PROCEDURE: Left closed reduction and percutaneous pinning hip fracture. SURGEON: Dr. Charbel Butler. TEACHER'S AIDE: FRANCIS Mendoza, who was an integral part of the case, helping with all aspects of the case. She helped to increase our OR efficiency greatly. ANESTHESIA: General with spinal anesthesia. BLOOD LOSS: 50 mL. IMPLANTS: Synthes 7.3 cannulated screws x3. DISPOSITION: To PACU, hemodynamically stable. INDICATION FOR PROCEDURE: Mr. Richardson is an 82-year-old male who presented to the emergency department several days ago with respiratory failure and after a fall. Diagnosed him with a left hip fracture that was impacted. It took a few days for the ICU team to get everything optimized for surgery and he is still having a lot of respiratory failure. We decided to go ahead and proceed with surgical intervention so that we could get him mobilized at least. I went over with him and his family about surgical intervention. They expressed their understanding and wished to proceed. DESCRIPTION OF PROCEDURE: Mr. Richardson was identified in the preoperative holding area. The left hip was marked as correct surgical site. He was then wheeled to the operating room, kept supine on his own bed. He was given spinal anesthesia. We then moved him to the traction bed. Left lower extremity was then prepped with chlorhexidine, gluconate scrub, and ChloraPrep, and draped in normal sterile fashion. Surgical pause was performed. We identified the correct patient, the correct side, and the correct procedure. Preop antibiotics were given. I started with an incision on the lateral aspect of his hip. Dissection was carried down through the deep fascia. We started right at the level of the lesser trochanter. I was able to get my guidewire centered on the lateral view and low on the AP view, right in the calcar area. Then I got 2 superior screws, 1 anterior, and 1 posterior, and guidewire in as well. After I confirmed those were all in good position, we then drilled and I placed the screws. Final images were taken which showed that we had screws across the fracture site. Everything stayed nice and reduced. We then closed that incision with 0 Vicryl for the deep layer, 2-0 Vicryl for the subcutaneous , and davis on the skin. Island dressing was then placed and he was moved to his own bed and taken back to the ICU in stable condition. Postop, he will be touchdown weightbearing left lower extremity. I am okay with him mobilizing, getting him seated in a chair. We will continue to follow. cc: MD Addison Chaudhari MD [facility] CENTERJarrett
--- NOTE | 2018-03-19 18:43 | PULMONOLOGY PROGRESS NOTE ---
DATE: 03/19/2018 SUBJECTIVE: The patient is arousable to alert. He has mild work of breathing. He continues to have significant pain in his left hip. OBJECTIVE: Vital Signs: Patient has been afebrile for the last 24 hours. Blood pressure 123/73, heart rate 88, respiratory rate 20, oxygen saturation 91% on 50% FiO2. HEENT: Pupils are equal and reactive. Oropharynx is clear. Neck: Supple. Chest: Reveals rhonchi bilaterally, right greater than left. Cardiac: S1,-S2. Abdomen: Soft and without hepatosplenomegaly. Extremities: Reveal trace edema. LABORATORIES: Chest x-ray reveals infiltrates, right greater than left base. No change. Chemistry: Sodium 136, potassium 4.0, chloride 97, bicarbonate 24, BUN 49, creatinine 1.5, glucose 113. White blood count 12.16, hemoglobin 12.7, platelet count 147,000. IMPRESSION: An 82-year-old with severe COPD, remote history of lung cancer, pneumonia, leukocytosis, acute hypoxemic respiratory failure, acute renal insufficiency. Chest x-ray remains stable. His oxygen has marginally improved and he is currently on 50% face mask. His creatinine has also slightly decreased, suggesting some improvement in his acute renal failure. The patient continues to have significant pain in his hip. As mentioned yesterday, timing of hip repair is difficult because it cannot be optimized. Ongoing delay makes it difficult to for patient to cough and clear due to pain and need for pain medications. The anesthesiologist and the orthopedic surgeon will attempt to optimize timing of hip repair. Family is aware that there will be no "best time" for hip repair and that he will have significant risk regardless of when repair may be performed. RECOMMENDATION: 1. Continue Clinimix and lipids given decreased p.o. intake. 2. Continue antibiotics. 3. Continue oxygen therapy. 4. Orthopedics following. Timing of surgery as outlined above. 5. Prognosis guarded. cc: MD Addison James MD
[2018-03-19] MEDS ORDERED: MORPHINE IV PRN (20:07)
[2018-03-19] MEDS: FLEXERIL PO SCH (20:39)
[2018-03-19] MEDS: LEVAQUIN 500 MG/D5W 500 MG/100 ML IVPB IV SCH (20:43)
[2018-03-19] MEDS: OXY IR PO PRN (23:31)
[2018-03-19] MEDS: KEFZOL 1 GM/D5W 1 GM/50 ML IVPB IV SCH (23:33)
[2018-03-20] MEDS: CLINIMIX E 4.25%-5% SOLUTION 1,000 ML IV SCH ×3 (03:16→22:54)
[2018-03-20] MEDS: DUONEB (A & A) INH SCH ×6 (03:16→23:27)
[2018-03-20 06:47] LABS: BASO# 0.03 X1000 (0.0-0.2); BASO% 0.3 % (0.0-0.8); EOS# 0.84 X1000 (0.0-0.7); EOS% 7.3 % (0.0-10.0); HEMATOCRIT 37.3 % (42.0-52.0); HEMOGLOBIN 12.4 g/dL (14.0-18.0); IMM GRAN# 0.03 X1000 (0.0-0.04); IMM GRAN% 0.3 % (0.0-0.5); LYMPH# 1.01 X1000 (1.2-3.4); LYMPH% 8.8 % (20.5-51.1); MCHC 33.2 g/dL (33-37); MCV 96.4 FL (81-99); MONO# 1.09 X1000 (0.11-0.59); MONO% 9.5 % (1.7-9.3); MPV 10.5 FL (7.4-10.4); NEUT# 8.44 X1000 (1.4-6.5); NEUT% 73.8 % (42.2-75.2); PLT 145 X1000 (130-400); RBC 3.87 XMIL (4.7-6.1); RDW 15.2 % (11.5-14.5); WBC 11.44 X1000 (4.8-10.8)
[2018-03-20 07:01] LABS: CALCIUM 8.8 mg/dL (8.8-10.2); CREATININE 1.2 mg/dL (0.7-1.2); POTASSIUM 4.5 mmol/L (3.5-5.1)
--- NOTE | 2018-03-20 07:09 | Diag Imaging Result Doc PS360 ---
EXAM: CHEST-PORTABLE 03/20/2018 HISTORY: respiratory failure TECHNIQUE: AP portable at 0520 COMMENT: Compared to 03/19/2018 there is increased alveolar opacity in the right base. There continues to be generalized interstitial opacity over both lungs. IMPRESSION: Worsened pulmonary edema particularly in the right lower lobe. Electronically signed by Clinton Caceres 03/20/2018 7:06 AM
--- NOTE | 2018-03-20 08:07 | PROGRESS NOTE ---
DATE: 03/20/2018 SUBJECTIVE: Mr. Richardson is lying in bed this morning. Still, his breathing is not great. He is still on a non-rebreather. From the hip standpoint, he is having a little bit of pain there. OBJECTIVE: Left lower extremity: Dressing is clean, dry, and intact. Seems to be neurovascularly intact, left lower extremity. ASSESSMENT: Status post left hip closed reduction and percutaneous pinning. PLAN: From the hip standpoint, I am okay with him being up and seated in chair. He is touchdown weightbearing, left lower extremity. Really the main issue right now is his lungs and respiratory function. ICU team is still working on a lot of that. They can mobilize him as needed. cc: MD Addison Chaudhari MD
[2018-03-20] MEDS: KEFZOL 1 GM/D5W 1 GM/50 ML IVPB IV SCH ×2 (08:30→16:29)
--- NOTE | 2018-03-20 09:34 | PROGRESS NOTE ---
DATE: 03/20/2018 SUBJECTIVE: The patient is still a little sedated, but will wake up. He says he is feeling better. Left hip is feeling better since he had surgery yesterday. OBJECTIVE: Vital signs: Blood pressure is 147/86, respirations 20, pulse 105, temperature 99.1 degrees Fahrenheit. HEENT: Normocephalic. EOMs intact. PERRLA. Throat clear. Lungs: Have scattered rales. Heart: Regular rate and rhythm without murmurs, gallops, or friction rubs. Abdomen: Soft. Active bowel sounds. No organomegaly or tenderness. Neurological: Intact grossly. Extremities: Left hip wound is dry. LABORATORY DATA: White count is down to 11,440, hemoglobin 12.4, hematocrit 37.3. Creatinine is back down to 1.2. BUN is 47. Chest x-ray showed worsened pulmonary edema, particularly in the right lower lobe. The patient is still on antibiotics. ASSESSMENT: 1. Pneumonia. 2. Pulmonary edema. 3. Left hip fracture. PLAN: Continue support. The patient had been given Lasix initially and may need that again. We backed off because his creatinine has gone up. We will get Dr. Antoine's opinion. Otherwise, continue care, try to get him up, sitting up, and walking as soon as possible. cc: MD Addison Castro Jr, MD
[2018-03-20] MEDS: TOPROL XL PO SCH (09:56)
[2018-03-20] MEDS: PROTONIX PO SCH ×2 (09:57→20:49)
[2018-03-20] MEDS: OXY IR PO PRN ×2 (11:47→21:47)
[2018-03-20] MEDS: LASIX IV SCH ×2 (11:47→22:54)
[2018-03-20] MEDS: LIPOSYN 20% 250 ML IV SCH (11:48)
--- NOTE | 2018-03-20 14:48 | PULMONOLOGY PROGRESS NOTE ---
DATE: 03/20/2018 SUBJECTIVE: The patient is arousable. He has an audible rhonchi. He is maintaining saturations on nasal cannula in the low 90s. He has a slightly reduced cough effort due to pain. OBJECTIVE: Vital Signs: Blood pressure 142/83, heart rate 105, respiratory rate 23, oxygen saturation 91%. HEENT: Pupils are equal and reactive. Oropharynx: Clear. Neck: Supple. Chest: Rhonchi bilaterally. Cardiac exam: S1 and S2. Abdomen: Soft with diminished bowel sounds. Extremities: +1 edema. LABORATORY DATA: Chest x-ray reveals increased infiltrates in the right base. Sodium 136, potassium 4.5, chloride 99, bicarbonate 24, BUN 47, creatinine 1.2. White blood count 11.44, hemoglobin 12.4, platelet count 144,000. No new microbiology data. IMPRESSION: An 82-year-old with: 1. Severe chronic obstructive pulmonary disease. 2. Acute hip fracture, status post surgical pinning. 3. Pneumonia. 4. Acute hypoxemic respiratory failure. He has had some decrease in oxygen requirements, although he has had some radiographic worsening. 5. Acute renal insufficiency. RECOMMENDATIONS: 1. Initiate physical therapy. 2. Continue oxygen. 3. Continue antibiotics. 4. Continue bronchial hygiene. 5. Attempt diuretics today as tolerated, with improvement in creatinine and worsening in chest x- ray. cc: MD Addison James MD
[2018-03-20] MEDS: TYLENOL PO PRN (18:01)
[2018-03-20] MEDS ORDERED: MOTRIN PO PRN (20:34)
[2018-03-20] MEDS: MORPHINE IV PRN (20:46)
[2018-03-20] MEDS: FLEXERIL PO SCH (20:49)
[2018-03-20] MEDS: LEVAQUIN 500 MG/D5W 500 MG/100 ML IVPB IV SCH (20:49)
[2018-03-20] MEDS: MOTRIN PO PRN (20:50)
[2018-03-20] MEDS: ZOFRAN IV PRN (20:57)
[2018-03-21] MEDS: DUONEB (A & A) INH SCH ×6 (03:15→23:49)
[2018-03-21 05:43] LABS: HEMATOCRIT 36.5 % (42.0-52.0)
[2018-03-21] MEDS: CLINIMIX E 4.25%-5% SOLUTION 1,000 ML IV SCH ×2 (06:19→20:04)
[2018-03-21] MEDS: PROTONIX PO SCH ×2 (08:17→20:06)
--- NOTE | 2018-03-21 09:19 | Diag Imaging Result Doc PS360 ---
CHEST-PORTABLE - 03/21/2018 INDICATION: respiratory failure COMPARISON: 03/20/2018 FINDINGS: There has been improvement in the hazy bilateral mixed, primarily interstitial infiltrates. Stable cardiomegaly. No pneumothorax or significant pleural effusion. IMPRESSION: Improvement in the hazy infiltrates/pulmonary edema. Electronically signed by Kash Engle 03/21/2018 9:17 AM
[2018-03-21] MEDS: TOPROL XL PO SCH (10:01)
[2018-03-21 10:05] LABS: ALB/GLOB RATIO 0.8; ALBUMIN 3.1 g/dL (3.5-5.0); CALCIUM 9.1 mg/dL (8.8-10.2); CREATININE 1.7 mg/dL (0.7-1.2); MAGNESIUM 2.6 mg/dL (1.5-2.7); PHOSPHORUS 6.4 mg/dL (2.7-4.5); POTASSIUM 4.1 mmol/L (3.5-5.1); TOTAL BILIRUBIN 0.63 mg/dL (0.20-1.00); TOTAL PROTEIN 6.8 g/dL (6.3-8.3)
[2018-03-21] MEDS: LIPOSYN 20% 250 ML IV SCH (12:19)
--- NOTE | 2018-03-21 14:44 | PROGRESS NOTE ---
DATE: 03/21/2018 SUBJECTIVE: Mr. Richardson is actually sitting up in his bed a little bit this morning. He is looking better as far as his breathing. He has actually eaten a little bit of breakfast. OBJECTIVE: Left lower extremity exam: He is neurovascularly intact to the left lower extremity. Dressing is clean, dry, and intact. ASSESSMENT: Status post left closed reduction percutaneous pinning of hip. PLAN: From our standpoint, he is touchdown weightbearing left lower extremity. He will be mobilized as needed. ICU Team is still working on his lungs. He got a bronch yesterday and Orthopedics will continue to follow. cc: MD Addison Chaudhari MD
--- NOTE | 2018-03-21 15:19 | PROGRESS NOTE ---
DATE: 03/21/2018 SUBJECTIVE: The patient falls off to sleep fairly quickly. He will wake up at different times. He is surrounded by his 2 daughters who have been attentive. I asked him if he felt any better he said he did not know. Chest x-ray shows improvement of the hazy infiltrate/ pulmonary edema. Sputum culture had 3+ white blood cells but no bacteria seen. OBJECTIVE: Vital signs: Temperature is 97.1 degrees Fahrenheit, Respirations 20. Oxygen saturation 94% on Venturi mask at 40%. Pulse is 104 and regular. HEENT: Normocephalic. EOMs intact. PERRLA. Throat clear. Lungs: Sound fairly clear with just occasional rales in the bases. Heart: Regular rate and rhythm without murmurs , gallops, friction rubs. Abdomen: Soft. Active bowel sounds. No organomegaly or tenderness. Neurological: Intact grossly but patient does fall to sleep. He has had some pain medication. LABORATORY: Shows a white count yesterday at 11,440, hemoglobin 12.4, is 12.0 today, today hematocrit 36.5. Chemistry profile shows a sodium 135, potassium 4.1, creatinine is back up to 1.7, BUN is 67 so will watch kidney function closely. ASSESSMENT: 1. Fractured left hip now postop pinning percutaneously. 2. Bilateral infiltrates presumed pneumonia, possibly some pulmonary edema on top of this. PLAN: Will try to increase activities. When he is more awake we will consider transferring to the floor. The patient does have COPD, he has got acute renal insufficiency so we will watch these closely as well. cc: MD Addison Castro Jr, MD MTDD
[2018-03-21] MEDS: LEVAQUIN 500 MG/D5W 500 MG/100 ML IVPB IV SCH (20:04)
[2018-03-21] MEDS: MOTRIN PO PRN (20:05)
[2018-03-21] MEDS: FLEXERIL PO SCH (20:05)
[2018-03-21] MEDS ORDERED: LASIX IV ONE (21:00)
[2018-03-21] MEDS: OXY IR PO PRN (21:23)
--- NOTE | 2018-03-22 00:54 | PULMONOLOGY PROGRESS NOTE ---
DATE: 03/21/2018 SUBJECTIVE: Patient is arousable to alert. He still had some pain in his hip but has a better cough effort. He expectorated a significant amount of sputum earlier this morning. He is tolerating some p.o. intake. He has no increased work of breathing. OBJECTIVE: Vital Signs: Blood pressure 117/67, heart rate 91, respiratory rate 20, oxygen saturation 96% on 50% FiO2. Maximum temperature in the last 24 hours 101.1 degrees. HEENT: Pupils are equal and reactive. Oropharynx is clear. Neck: Is supple. Chest: Reveals decreased rhonchi compared to yesterday. Cardiac: S1-S2. Abdomen: Soft . Extremities: Reveal trace edema. LABORATORIES: Chest x-ray reveals some decrease in infiltrates. Sodium 135, potassium 4.1, chloride 95, bicarbonate 24, BUN 67, creatinine 1.7. IMPRESSION: 1. 82-year-old with severe chronic obstructive pulmonary disease. 2. Community-acquired pneumonia. 3. Acute hypoxemic respiratory failure. 4. Acute renal insufficiency. DISCUSSION: Overall, patient clinically appears improved. Radiographically he has improved and his oxygen requirements are acceptable. He is expectorating sputum. His chest x-ray has improved but with diuresis his BUN and creatinine are elevated. RECOMMENDATIONS: 1. Continue antibiotics. 2. Continue bronchial hygiene. 3. Continue oxygen for hypoxemic respiratory failure. 4. Continue Clinimix pending improvement in p.o. intake. 5. Attempt to match intake and output. cc: MD Addison James MD
[2018-03-22] MEDS: OXY IR PO PRN ×2 (03:28→21:35)
[2018-03-22] MEDS: DUONEB (A & A) INH SCH ×6 (03:40→23:24)
[2018-03-22 06:14] LABS: BASO# 0.03 X1000 (0.0-0.2); BASO% 0.3 % (0.0-0.8); EOS# 0.72 X1000 (0.0-0.7); EOS% 6.4 % (0.0-10.0); HEMATOCRIT 35.7 % (42.0-52.0); HEMOGLOBIN 11.7 g/dL (14.0-18.0); IMM GRAN# 0.06 X1000 (0.0-0.04); IMM GRAN% 0.5 % (0.0-0.5); LYMPH# 1.12 X1000 (1.2-3.4); MCH 31.5 PG (27-31); MCHC 32.8 g/dL (33-37); MCV 96.2 FL (81-99); MONO# 1.33 X1000 (0.11-0.59); MONO% 11.9 % (1.7-9.3); MPV 10.6 FL (7.4-10.4); NEUT# 7.94 X1000 (1.4-6.5); NEUT% 70.9 % (42.2-75.2); PLT 166 X1000 (130-400); RBC 3.71 XMIL (4.7-6.1)
[2018-03-22 07:01] LABS: CALCIUM 8.7 mg/dL (8.8-10.2); CREATININE 1.4 mg/dL (0.7-1.2); POTASSIUM 4.5 mmol/L (3.5-5.1)
--- NOTE | 2018-03-22 08:14 | Diag Imaging Result Doc PS360 ---
CHEST-PORTABLE - 03/22/2018 INDICATION: respiratory failure COMPARISON: 03/21/2018 FINDINGS: There is stable hazy common or edema diffusely. There is slight worsening atelectasis or infiltrate at the right lower lobe with loss of the hemidiaphragm. No pneumothorax or large pleural effusion. IMPRESSION: Slight worsening right lower lobe atelectasis or infiltrate. Stable diffuse infiltrates compatible with pulmonary edema. Electronically signed by Kash Engle 03/22/2018 8:12 AM
[2018-03-22] MEDS: PROTONIX PO SCH ×2 (09:36→21:35)
[2018-03-22] MEDS: CLINIMIX E 4.25%-5% SOLUTION 1,000 ML IV SCH ×2 (09:36→21:35)
[2018-03-22] MEDS: TOPROL XL PO SCH (09:36)
[2018-03-22] MEDS: LIPOSYN 20% 250 ML IV SCH (09:38)
[2018-03-22 10:14] LABS: ALLEN TEST YES; BE 3.6 mmoll (-3.0-3.0); BLOOD TYPE ARTERIAL; HCO3-(ACT) 27.7 mmoll (20.0-26.0); METHB 0.9 % (0.0-1.5); O2(CT) 16.2 mL/dL (15.0-23.0); O2HB 93.9 % (95.0-99.0); PCO2(98.6) 50 mmHg (35-45); PO2(98.6) 73 mmHg (60-100); SAMPLE BLOOD; THB 12.2 g/dL (11.5-17.4); pH(98.6) 7.38 (7.35-7.45)
[2018-03-22 10:16] LABS: MODALITY VENTIMASK
[2018-03-22] MEDS ORDERED: VASELINE TOP PRN (10:22)
--- NOTE | 2018-03-22 12:01 | PROGRESS NOTE ---
DATE: 03/22/2018 SUBJECTIVE: The patient is very tired this morning. He will answer questions just very briefly and falls back to sleep. I asked him if he was short of breath and he said, "not particularly." He is wheezing a little bit more this morning. OBJECTIVE: Vital Signs: Blood pressure is 115/65, respirations 18, pulse 106 and regular, temperature 98 degrees Fahrenheit. Oxygen saturation is 92% with the mask, but half the time he pulls his mask down. HEENT: Normocephalic. Neck: Supple. Lungs: Have anterior wheezing. Heart: Regular rate and rhythm without murmurs, gallops, friction rubs up to a sinus tachycardia. Abdomen: Soft. Active bowel sounds. No organomegaly or tenderness. Neurological exam: The patient is very sleepy this morning, tired. LABS: White count is 11,200, hemoglobin 11.7, hematocrit 35.7. He does have a left shift, 70.9 neutrophils. Sodium is 135, potassium 4.5, chloride 95, CO2 is 24. BUN is up a little bit to 70, but creatinine has come down a little bit to 1.4 from 1.7 yesterday. X-RAY: Chest x-ray might show slight worsening to the right lower lobe atelectasis or infiltrate. Otherwise, he does show some pulmonary edema. ASSESSMENT: 1. Left hip fracture, now status post surgery. 2. Pneumonia. 3. Pulmonary edema. 4. Chronic obstructive pulmonary disease. PLAN: Continue support with antibiotics. He is getting breathing treatments. Sputum culture from 03/20 showed no growth. Blood cultures have shown no growth. Continue support. Please note family members were in the room; I talked with them as well today. cc: MD Addison Castro Jr, MD
--- NOTE | 2018-03-22 16:52 | PULMONOLOGY PROGRESS NOTE ---
DATE: 03/22/2018 SUBJECTIVE: Patient is awake and alert. He has a fair cough effort with significant motivation, but otherwise continues to do some splinting. OBJECTIVE: Vital Signs: Maximum temperature in the last 24 hours is 99.8 degrees. BP 128/66, heart rate 102, respiratory rate 18, oxygen saturation 97% on Venturi mask at 40%. HEENT: Pupils are equal and reactive. Oropharynx appears clear. Neck: Supple. Chest: Reveals shallow breath sounds with occasional rhonchi. Cardiac: S1, S2. Abdomen: Soft, without hepatosplenomegaly. Extremities: Without significant edema. LABORATORIES: PH 7.38, pCO2 of 50, PO2 of 73. Sodium 135, potassium 4.5, chloride 95, bicarbonate 24, BUN 70, creatinine 1.4, glucose 125. Chest x-ray reveals infiltrate at the right base with mild bilateral edema. Radiologist indicates slight worsening of the atelectasis, but it really has not changed significantly by my review. IMPRESSION: An 82-year-old with severe COPD, community-acquired pneumonia, acute hypoxemic respiratory failure, and acute renal insufficiency. The patient has not significantly changed over the last 24 hours. Otherwise, his oxygen requirements have slightly decreased. RECOMMENDATIONS: 1. Continue current antibiotic regimen. 2. Continue bronchial hygiene. 3. Wean oxygen as tolerated. 4. Continue Clinimix and lipids for a nutrition bridge pending improvement in p.o. intake. 5. Attempt to match intake and output today if possible. cc: MD Addison James MD
[2018-03-22] MEDS: TEARISOL OPH SOLUTION BOTH EYES PRN (18:06)
[2018-03-22] MEDS: TYLENOL PO PRN (20:00)
[2018-03-22] MEDS: FLEXERIL PO SCH (20:11)
[2018-03-22] MEDS: LEVAQUIN 500 MG/D5W 500 MG/100 ML IVPB IV SCH (20:11)
[2018-03-22] MEDS ORDERED: LASIX IV ONE (21:00)
[2018-03-23] MEDS: OXY IR PO PRN ×2 (01:57→19:56)
[2018-03-23] MEDS: DUONEB (A & A) INH SCH ×6 (03:16→23:25)
--- NOTE | 2018-03-23 06:16 | Diag Imaging Result Doc PS360 ---
EXAM: CHEST-PORTABLE HISTORY: respiratory failure TECHNIQUE: Portable chest single view COMPARISON: 03/22/2018 FINDINGS: Poor inspiratory effort. There is pulmonary edema. No cardiomegaly. Underlying infiltrates in the right lung base. There are likely tiny pleural effusions. There are surgical clips in the left hilum. IMPRESSION: No interval improvement. Electronically signed by Valentin Russo 03/23/2018 6:14 AM
[2018-03-23 06:25] LABS: BASO# 0.03 X1000 (0.0-0.2); BASO% 0.3 % (0.0-0.8); EOS# 0.65 X1000 (0.0-0.7); HEMATOCRIT 36.2 % (42.0-52.0); HEMOGLOBIN 11.7 g/dL (14.0-18.0); IMM GRAN# 0.14 X1000 (0.0-0.04); IMM GRAN% 1.3 % (0.0-0.5); LYMPH% 9.3 % (20.5-51.1); MCH 31.2 PG (27-31); MCHC 32.3 g/dL (33-37); MCV 96.5 FL (81-99); MONO# 1.44 X1000 (0.11-0.59); MONO% 13.3 % (1.7-9.3); MPV 10.6 FL (7.4-10.4); NEUT# 7.53 X1000 (1.4-6.5); NEUT% 69.8 % (42.2-75.2); PLT 182 X1000 (130-400); RBC 3.75 XMIL (4.7-6.1); WBC 10.79 X1000 (4.8-10.8)
[2018-03-23 06:49] LABS: CALCIUM 9.2 mg/dL (8.8-10.2); CREATININE 1.5 mg/dL (0.7-1.2); POTASSIUM 4.6 mmol/L (3.5-5.1)
--- NOTE | 2018-03-23 09:15 | PROGRESS NOTE ---
DATE: 03/23/2018 SUBJECTIVE: The patient still feels tired. He will wake up but first keep his eyes closed, even talking to me. He has had a little bit of physical therapy in his bed. He has no new complaints today. OBJECTIVE: Vital Signs: Blood pressure 114/70, respirations 19 and regular, pulse 98 and regular, temperature 98 degrees Fahrenheit. HEENT: Normocephalic. EOMs intact. PERRLA. Throat clear. Lungs: Have a few wheezes anteriorly. Heart: Regular rate and rhythm without murmurs, gallops, or friction rubs. Abdomen: Soft. Active bowel sounds. No organomegaly. He does have a little tenderness from where he has been coughing which I think is just abdominal wall pain. Neurological: Examination intact grossly. Laboratory Data: White count is down to 10,790, hemoglobin 11.7, hematocrit 36.2. Sodium 135, BUN 74, creatinine 1.5. ASSESSMENT: 1. Left hip fracture. 2. Pulmonary edema. Chest x-ray looks the same as it did yesterday. 3. Chronic obstructive pulmonary disease. 4. History of lung cancer. 5. Acute on chronic kidney failure. Family member, daughter, was there this morning. I talked with her as well. At this point, we can continue current treatment. PLAN: Continue current treatment. Continue antibiotics. It should be noted that sputum Gram stain just showed some WBCs but no bacteria and culture showed normal sammi, sparse growth. I appreciate help from Dr. Antoine. cc: MD Addison Castro Jr, MD
[2018-03-23] MEDS: TOPROL XL PO SCH (09:21)
[2018-03-23] MEDS: PROTONIX PO SCH ×2 (09:21→19:59)
[2018-03-23] MEDS: LIPOSYN 20% 250 ML IV SCH (09:22)
[2018-03-23] MEDS: CLINIMIX E 4.25%-5% SOLUTION 1,000 ML IV SCH ×2 (10:22→17:31)
--- NOTE | 2018-03-23 13:19 | PULMONOLOGY PROGRESS NOTE ---
DATE: 03/23/2018 SUBJECTIVE: Patient is arousable to alert. He has limited p.o. intake. His cough is improving. OBJECTIVE: Vital Signs: Intake 2686, output 2240. He has been afebrile. Blood pressure 122/69, heart rate 96, respiratory rate 17, oxygen saturation 96% on 4 L. HEENT: Pupils are equal and reactive. Oropharynx is clear. Neck: Supple. Chest: Reveals occasional rhonchi with crackles at the right base. He has prolonged expiratory phase. Cardiac: S1-S2. Abdomen: Mildly distended with increased tympany. Extremities: Without edema. LABORATORIES: White blood count 10.79, hemoglobin 11.7, platelet count 182,000. Sodium 135, potassium 4.6, chloride 98, bicarbonate 24, BUN 74, creatinine 1.5. Chest x-ray reveals mild pulmonary edema, stable infiltrate at the right base without change. IMPRESSION: An 82-year-old with severe chronic obstructive pulmonary disease, community-acquired pneumonia, acute hypoxemic respiratory failure, and acute renal insufficiency. The patient is to remain relatively stable over the last 3 days. He is not significantly improved, but he is not significantly worsened. RECOMMENDATION: 1. Continue current antibiotic regimen. 2. Continue bronchial hygiene. 3. Mobilize as tolerated per Orthopedics recommendation. 4. Attempt to match intake and output. 5. Consider transfer to the floor. He currently does not meet requirements to need an ICU but with decompensation he would. cc: MD Addison James MD
--- NOTE | 2018-03-23 18:13 | PROGRESS NOTE ---
DATE: 03/23/2018 SUBJECTIVE: Mr. Richardson is lying in bed this evening. He does not seem to be doing as well as he was the other today when I saw him. He is not quite as alert. OBJECTIVE: On left lower extremity exam, dressing is clean, dry, and intact. He can wiggle the toes, and he has good sensation to light touch to the foot. ASSESSMENT: Status post left closed reduction and percutaneous pinning of hip. PLAN: Mr. Richardson still touchdown weightbearing on this left lower extremity. From a medical standpoint, he is not doing great still in his lungs. ICU team can mobilize him and sit up as needed, and Orthopedics will continue to follow. cc: MD Addison Chaudhari MD
[2018-03-23] MEDS: LEVAQUIN 500 MG/D5W 500 MG/100 ML IVPB IV SCH (19:56)
[2018-03-23] MEDS: FLEXERIL PO SCH (19:59)
[2018-03-24] MEDS: CLINIMIX E 4.25%-5% SOLUTION 1,000 ML IV SCH (00:22)
[2018-03-24] MEDS: DUONEB (A & A) INH SCH ×6 (03:20→23:12)
[2018-03-24 05:15] LABS: BASO# 0.05 X1000 (0.0-0.2); BASO% 0.4 % (0.0-0.8); EOS% 5.2 % (0.0-10.0); HEMOGLOBIN 11.9 g/dL (14.0-18.0); IMM GRAN# 0.15 X1000 (0.0-0.04); IMM GRAN% 1.3 % (0.0-0.5); LYMPH# 1.12 X1000 (1.2-3.4); LYMPH% 9.7 % (20.5-51.1); MCH 31.9 PG (27-31); MCHC 33.1 g/dL (33-37); MCV 96.5 FL (81-99); MONO# 1.33 X1000 (0.11-0.59); MONO% 11.5 % (1.7-9.3); MPV 10.2 FL (7.4-10.4); NEUT# 8.29 X1000 (1.4-6.5); NEUT% 71.9 % (42.2-75.2); PLT 220 X1000 (130-400); RBC 3.73 XMIL (4.7-6.1); RDW 14.9 % (11.5-14.5); WBC 11.54 X1000 (4.8-10.8)
[2018-03-24] MEDS: MORPHINE IV PRN ×2 (06:10→11:41)
[2018-03-24 06:25] LABS: CALCIUM 9.2 mg/dL (8.8-10.2); CREATININE 1.3 mg/dL (0.7-1.2); POTASSIUM 4.8 mmol/L (3.5-5.1)
--- NOTE | 2018-03-24 08:06 | Diag Imaging Result Doc PS360 ---
CHEST-PORTABLE - 03/24/2018 INDICATION: respiratory failure COMPARISON: 03/23/2018 FINDINGS: Stable cardiomegaly and significant pulmonary vascular congestion. Stable right basilar infiltrate or atelectasis. No new infiltrates. IMPRESSION: No change from prior. Electronically signed by Kash Engle 03/24/2018 8:04 AM
--- NOTE | 2018-03-24 08:08 | PROGRESS NOTE ---
DATE: 03/24/2018 SUBJECTIVE: Mr. Richardson is lying in bed. He is a little bit confused and says he feels much worse today. OBJECTIVE DATA: Left lower extremity: The dressing is clean, dry, and intact. He is able to move the toes and dorsiflex and plantarflex the foot. He has good sensation. ASSESSMENT: Status post left closed reduction and percutaneous pinning of the hip. PLAN: Mr. Richardson is still touchdown weightbearing on this left lower extremity. Overall, today he does not look great. I am really wanting him to mobilize and get into the chair today. I did talk to Physical Therapy myself. Apparently, he has been pretty difficult to get up. We really want him mobilizing and starting to rehab. Again, he is only touchdown weightbearing and I know that makes it more difficult. We are going to work toward mobilizing him. Dictated by FRANCIS Mendoza for Charbel Butler MD cc: FRANCIS Mendoza MD Stephen W. Harbin, MD [facility] HOSPITALJarrett
[2018-03-24] MEDS: LIPOSYN 20% 250 ML IV SCH ×2 (08:54→11:41)
--- NOTE | 2018-03-24 09:28 | PROGRESS NOTE ---
DATE: 03/24/2018 SUBJECTIVE: The patient is a little bit better. He is more alert. He has got his eyes open. OBJECTIVE: Vitals: Blood pressure is 151/89, respirations 21, pulse 100 and regular, temperature 98 degrees Fahrenheit. HEENT: Normocephalic. EOMs intact. PERRLA. Throat clear. Lungs: A few rales anteriorly. Heart: Regular rate and rhythm without murmurs, gallops, friction rubs. Abdomen: Soft. Active bowel sounds. No organomegaly or tenderness. Neurological: Exam intact grossly. The patient is to be up in a chair later today, but overall, I think he has had some improvement. IMAGING: Chest x-ray looks about the same with pulmonary congestion. ASSESSMENT: 1. Left hip fracture. 2. Pneumonia. 3. Pulmonary edema. PLAN: I feel like we could probably move him out of the unit today. We will continue to increase his activities. Continue his other treatments. cc: MD Addison Castro Jr, MD
[2018-03-24] MEDS: TOPROL XL PO SCH (09:44)
[2018-03-24] MEDS: PROTONIX PO SCH ×2 (09:44→21:47)
[2018-03-24] MEDS ORDERED: LASIX IV ONE (20:13)
--- NOTE | 2018-03-24 20:36 | PULMONOLOGY PROGRESS NOTE ---
DATE: 03/24/2018 SUBJECTIVE: The patient is arousable and alert. He has had limited p.o. intake. He has a marginal cough effort. He is without new complaints. OBJECTIVE: Vital Signs: He is afebrile for the last 24 hours. Blood pressure 120/69, heart rate 90, respiratory rate 20, oxygen saturation 97% on 4 L per nasal cannula. HEENT: Pupils are equal and reactive. Oropharynx appears clear. Neck: Supple. Chest: Reveals positive rhonchi bilaterally. Cardiac: S1, S2. Abdomen: Soft, with positive bowel sounds. Extremities: Reveal trace edema. LABORATORIES: Chest x-ray reveals atelectasis versus infiltrate at the right base, with stable cardiomegaly and pulmonary vascular congestion. White blood count 11.54, hemoglobin 11.9, platelet count 220,000. Sodium 131, potassium 4.8, chloride 95, bicarbonate 23, BUN 68, creatinine 1.3. IMPRESSION: An 82-year-old with: 1. Severe COPD. 2. Acute hypoxemic respiratory failure. 3. Community-acquired pneumonia. 4. Acute renal insufficiency. 5. Status post fractured hip repair. 6. Delirium. The patient has been stable over the last 4 days and has had marginal improvement. He has developed some delirium while in the ICU. RECOMMENDATION: 1. Continue current antibiotic regimen. 2. Continue bronchial hygiene. 3. Continue to mobilize as outlined by orthopedic recommendations. 4. Attempt to balance intake and output as a current fluid management strategy. 5. Agree with transfer to the floor. cc: MD Addison James MD
[2018-03-24] MEDS: FLEXERIL PO SCH (21:47)
[2018-03-24] MEDS: MOTRIN PO PRN (21:48)
[2018-03-24] MEDS: LEVAQUIN 500 MG/D5W 500 MG/100 ML IVPB IV SCH (21:48)
[2018-03-25] MEDS: CLINIMIX E 4.25%-5% SOLUTION 1,000 ML IV SCH ×4 (01:48→22:58)
[2018-03-25] MEDS: DUONEB (A & A) INH SCH ×6 (03:14→23:39)
[2018-03-25 06:42] LABS: ALB/GLOB RATIO 0.8; ALBUMIN 3.3 g/dL (3.5-5.0); CALCIUM 10.1 mg/dL (8.8-10.2); CREATININE 1.4 mg/dL (0.7-1.2); MAGNESIUM 2.5 mg/dL (1.5-2.7); POTASSIUM 4.1 mmol/L (3.5-5.1); TOTAL BILIRUBIN 1.17 mg/dL (0.20-1.00); TOTAL PROTEIN 7.7 g/dL (6.3-8.3)
[2018-03-25] MEDS: OXY IR PO PRN ×2 (06:58→16:16)
--- NOTE | 2018-03-25 07:24 | Diag Imaging Result Doc PS360 ---
EXAM: CHEST-PORTABLE 03/25/2018 HISTORY: respiratory failure TECHNIQUE: AP portable at 0622 COMMENT: Compared to 03/24/2018 the platelike atelectatic changes in the right base have improved. The lungs are also better expanded and there is apparently D diminished interstitial pulmonary edema. IMPRESSION: Improved pulmonary edema and atelectasis. Electronically signed by Clinton Caceres 03/25/2018 7:22 AM
--- NOTE | 2018-03-25 08:14 | PROGRESS NOTE ---
DATE: 03/25/2018 SUBJECTIVE DATA: Mr. Richardson is lying in bed. He was transferred to a floor bed yesterday. He says he does not feel great today. He is complaining of pain at the knee. OBJECTIVE DATA: Left lower extremity examination: His incision looks great. There is no erythema or drainage. He is able to move the toes, dorsi and plantar flex the foot. I did have him do a single-leg raise which he said was very painful for him. He had no tenderness to palpation around the knee. There was no palpable effusion. ASSESSMENT: Status post left closed reduction and percutaneous pinning of the hip. PLAN: I think Mr. Richardson looks a little bit better today. He is still having some difficulty mobilizing. I did discuss him that this is the most important thing for him and to really work on it. We will work on pain control and mobilizing him. He is touchdown weightbearing on this left side. Dictated by FRANCIS Mendoza for Charbel Butler MD cc: FRANCIS Mendoza MD Stephen W. Harbin, MD
[2018-03-25] MEDS: TOPROL XL PO SCH (08:34)
[2018-03-25] MEDS: PROTONIX PO SCH ×2 (08:34→22:36)
--- NOTE | 2018-03-25 09:08 | PROGRESS NOTE ---
DATE: 03/25/2018 SUBJECTIVE: The patient is sleepy. He said he did not sleep well last night; he tossed and turned. Does not have any real complaints. Keeps falling off to sleep a bit, but easily arousable. OBJECTIVE: Vital Signs: Blood pressure is 127/71, respirations 21 and nonlabored, pulse 98 and regular, temperature 98.2 degrees Fahrenheit. HEENT: Normocephalic. EOMS intact. PERRLA. Throat clear. Lungs: Lungs have a few rales anteriorly. Chest x-ray has shown some clearing of his pulmonary edema. Heart: Regular rate and rhythm without murmurs, gallops or friction rubs. Abdomen: Soft. Active bowel sounds. No organomegaly or tenderness. Extremities: Left hip pain is much improved. Neurological exam: Intact. ASSESSMENT: 1. Left hip fracture. 2. Pulmonary edema. 3. Pneumonia. PLAN: We will continue antibiotics. Continue bronchial hygiene. Physical therapy is working with him. cc: MD Addison Castro Jr, MD
[2018-03-25 13:21] LABS: ALLEN TEST NO; BE 5.3 mmoll (-3.0-3.0); BLOOD TYPE ARTERIAL; HCO3-(ACT) 28.9 mmoll (20.0-26.0); METHB 1.4 % (0.0-1.5); MODALITY CANNULA; O2HB 91.5 % (95.0-99.0); PCO2(98.6) 43 mmHg (35-45); PO2(98.6) 63 mmHg (60-100); SAMPLE BLOOD; SAO2 95.1 % (95.0-100.0); THB 12.4 g/dL (11.5-17.4); pH(98.6) 7.45 (7.35-7.45)
[2018-03-25] MEDS: MORPHINE IV PRN (15:49)
[2018-03-25] MEDS: LIPOSYN 20% 250 ML IV SCH (16:01)
[2018-03-25] MEDS: SOLU-MEDROL IV SCH (16:09)
[2018-03-25] MEDS: ZOFRAN IV PRN (16:16)
[2018-03-25] MEDS ORDERED: NS 500 ML ONE (19:10)
[2018-03-25] MEDS ORDERED: LASIX IV ONE (21:00)
[2018-03-25] MEDS: FLEXERIL PO SCH (22:37)
[2018-03-25] MEDS: LEVAQUIN 500 MG/D5W 500 MG/100 ML IVPB IV SCH (22:37)
--- NOTE | 2018-03-26 01:21 | PULMONOLOGY PROGRESS NOTE ---
DATE: 03/25/2018 SUBJECTIVE: The patient is sleeping. Family reports he was agitated and up a lot of the evening. OBJECTIVE: Vital Signs: The patient has been afebrile for the last 24 hours. Blood pressure 133/75, heart rate 89, respiratory rate 21, oxygen saturation 95%. HEENT: Pupils are equal and reactive. Oropharynx is clear. Neck: Reveals bilateral wheezing. Cardiac: S1-S2. Abdomen: Soft. Extremities: Without edema. LABORATORIES: Chest x-ray reveals decreased infiltrates at the right base, with decreased edema. Sodium 133, potassium 4.1, chloride 92, bicarbonate 27, BUN 68, creatinine 1.4. Arterial blood gas: pH 7.45, pCO2 of 43, PO2 of 63 on nasal cannula. IMPRESSION: An 82-year-old with severe chronic obstructive pulmonary disease, community-acquired pneumonia, acute hypoxemic respiratory failure, acute renal insufficiency, delirium, status post fracture, status post hip fracture and repair. He has had some radiographic improvement. His oxygen requirements have decreased. He does have some wheezing on exam. RECOMMENDATIONS: 1. Continue antibiotic regimen. 2. Continue bronchial hygiene. 3. Initiate low-dose steroids. A higher dose of steroids would be preferred, but would further exacerbate his delirium. 4. Continue to balance intake and output. 5. Prognosis remains guarded. cc: MD Addison James MD
[2018-03-26] MEDS: DUONEB (A & A) INH SCH ×6 (04:05→23:00)
[2018-03-26] MEDS: SOLU-MEDROL IV SCH ×2 (04:35→17:33)
[2018-03-26 05:57] LABS: BASO# 0.04 X1000 (0.0-0.2); BASO% 0.3 % (0.0-0.8); EOS# 0.03 X1000 (0.0-0.7); EOS% 0.2 % (0.0-10.0); HEMATOCRIT 37.4 % (42.0-52.0); HEMOGLOBIN 12.3 g/dL (14.0-18.0); IMM GRAN# 0.27 X1000 (0.0-0.04); IMM GRAN% 2.2 % (0.0-0.5); LYMPH# 0.89 X1000 (1.2-3.4); LYMPH% 7.1 % (20.5-51.1); MCH 31.5 PG (27-31); MCHC 32.9 g/dL (33-37); MCV 95.7 FL (81-99); MONO# 0.97 X1000 (0.11-0.59); MONO% 7.7 % (1.7-9.3); NEUT# 10.35 X1000 (1.4-6.5); NEUT% 82.5 % (42.2-75.2); PLT 325 X1000 (130-400); RBC 3.91 XMIL (4.7-6.1); RDW 14.4 % (11.5-14.5); WBC 12.55 X1000 (4.8-10.8)
[2018-03-26 06:18] LABS: CALCIUM 9.9 mg/dL (8.8-10.2); CREATININE 1.4 mg/dL (0.7-1.2); MAGNESIUM 2.6 mg/dL (1.5-2.7); POTASSIUM 4.8 mmol/L (3.5-5.1)
[2018-03-26] MEDS: OXY IR PO PRN ×2 (06:32→09:52)
--- NOTE | 2018-03-26 07:24 | Diag Imaging Result Doc PS360 ---
EXAM: CHEST-PORTABLE INDICATION: respiratory failure TECHNIQUE: One view COMPARISON: 03/25/2018 FINDINGS: Inspiration is suboptimal. Interstitial edema and pulmonary venous congestion appears to have worsened slightly during the interval. No other new consolidations are identified. Cardiac silhouette is stable. IMPRESSION: Interval slight worsening. Electronically signed by Miller Whitman 03/26/2018 7:22 AM
--- NOTE | 2018-03-26 09:24 | PROGRESS NOTE ---
DATE: 03/26/2018 SUBJECTIVE: The patient says he feels about the same. He is wheezing a little bit more today. OBJECTIVE: Vital signs: Blood pressure is 134/74, respirations 18, pulse 88, temperature 98.7 degrees Fahrenheit. HEENT: Normocephalic. PERRLA. Throat clear. Lungs: Wheezing anteriorly. Heart: Regular rate and rhythm without murmurs, gallops or friction rubs. Abdomen: Soft. Active bowel sounds. No organomegaly or tenderness. Neurologic: The patient could not tell me we what today is but he could tell me it was March. He knew who the president was. He was started on some low-dose steroids recently. ASSESSMENT: 1. Left hip fracture. 2. Pulmonary edema. 3. Pneumonia. LABORATORY: White count went back up to 12,550 but not much of a change. Hemoglobin was 12.3. Electrolytes were essentially normal. PLAN: Continue support. cc: MD Addison Castro Jr, MD
[2018-03-26] MEDS: PROTONIX PO SCH ×2 (09:30→21:13)
[2018-03-26] MEDS: TOPROL XL PO SCH (09:30)
[2018-03-26] MEDS: CLINIMIX E 4.25%-5% SOLUTION 1,000 ML IV SCH (09:50)
[2018-03-26] MEDS: LIPOSYN 20% 250 ML IV SCH (12:44)
[2018-03-26] MEDS: FLEXERIL PO SCH (21:12)
[2018-03-26] MEDS: LEVAQUIN 500 MG/D5W 500 MG/100 ML IVPB IV SCH (21:13)
[2018-03-27] MEDS: OXY IR PO PRN ×3 (01:13→20:21)
[2018-03-27] MEDS: DUONEB (A & A) INH SCH ×6 (03:02→23:00)
--- NOTE | 2018-03-27 04:24 | PULMONOLOGY PROGRESS NOTE ---
DATE: 03/26/2018 SUBJECTIVE: The patient is awake, alert and more conversant today. The patient's family reports he did sleep some last evening. OBJECTIVE: Vital Signs: The patient has been afebrile for the last 24 hours. Blood pressure 149/82, heart rate 86, respiratory rate 18, oxygen saturation 94%. HEENT: Pupils are equal and reactive. Oropharynx appears clear. Neck: Supple. chest: Reveals crackles at the lung base. Cardiac: S1 and S2. Abdomen: Soft. Extremities: Reveal trace edema. LABORATORY DATA: White blood count 12.5, hemoglobin 12.3, platelet count 325,000. Sodium 135, potassium 4.8, chloride 95, bicarbonate level 27, BUN 75, creatinine 1.4. IMPRESSION: The patient is an 82-year-old with: 1. Community-acquired pneumonia. 2. Severe chronic obstructive pulmonary disease. 3. Acute hypoxemic respiratory failure. 4. Acute renal insufficiency. 5. Delirium with some improvement today. 6. Status post hip fracture with repair. 7. Protein calorie malnutrition with some improvement in by mouth intake. RECOMMENDATIONS: 1. Continue antibiotic regimen. 2. Continue bronchial hygiene. 3. Continue low-dose steroids. 4. Continue oxygen as needed for hypoxemic respiratory failure. 5. Discontinue Clinimix and lipids with increased p.o. intake. 6. Physical therapy as tolerated. 7. Prognosis remains guarded. cc: MD Addison James MD
[2018-03-27] MEDS: SOLU-MEDROL IV SCH ×2 (04:32→17:20)
--- NOTE | 2018-03-27 06:50 | Diag Imaging Result Doc PS360 ---
EXAM: CHEST-PORTABLE HISTORY: respiratory failure TECHNIQUE: Portable chest single view COMPARISON: 03/26/2018 FINDINGS: The lungs are well expanded. There are surgical clips in the left hilum with left apical pleural thickening. No cardiomegaly. No pleural effusions identified. Interstitial markings in the lower lungs are less pronounced. IMPRESSION: Interval improvement. Electronically signed by Valentin Russo 03/27/2018 6:48 AM
--- NOTE | 2018-03-27 09:31 | PROGRESS NOTE ---
DATE: 03/27/2018 SUBJECTIVE: The patient still says he feels very tired. He looks better to me. He is pulling himself up in bed better. Chest x-ray shows some improvement in pulmonary edema and pneumonia. Sputum is pending. OBJECTIVE: Vital Signs: Blood pressure 118/71, respirations 16, pulse 90, temperature 98 degrees Fahrenheit. HEENT: Normocephalic. EOMs intact. PERRLA. Throat clear. Lungs: Fairly clear to auscultation. Heart: Regular rate and rhythm without murmurs, gallops, or friction rubs. Abdomen: Soft. Active bowel sounds. No organomegaly or tenderness. Neurological: Intact grossly. ASSESSMENT: 1. Status post left hip fractures. He seems to be healing well. 2. Pneumonia. 3. Pulmonary edema. PLAN: Continue support. The patient seems to be improving slowly. cc: MD Addison Castro Jr, MD
[2018-03-27] MEDS: TOPROL XL PO SCH (10:36)
[2018-03-27] MEDS: PROTONIX PO SCH ×2 (10:36→20:06)
[2018-03-27] MEDS ORDERED: D50W SYRINGE ONE (15:10)
[2018-03-27] MEDS: LEVAQUIN 500 MG/D5W 500 MG/100 ML IVPB IV SCH (20:06)
[2018-03-27] MEDS: FLEXERIL PO SCH (20:06)
[2018-03-27] MEDS: MIRALAX PO SCH (20:07)
[2018-03-28] MEDS: DUONEB (A & A) INH SCH ×6 (03:02→22:56)
[2018-03-28] MEDS: SOLU-MEDROL IV SCH ×2 (03:53→15:36)
[2018-03-28 05:41] LABS: BASO# 0.05 X1000 (0.0-0.2); BASO% 0.3 % (0.0-0.8); EOS# 0.01 X1000 (0.0-0.7); EOS% 0.1 % (0.0-10.0); HEMATOCRIT 37.5 % (42.0-52.0); HEMOGLOBIN 12.2 g/dL (14.0-18.0); IMM GRAN# 0.49 X1000 (0.0-0.04); IMM GRAN% 3.3 % (0.0-0.5); LYMPH# 1.04 X1000 (1.2-3.4); MCH 31.3 PG (27-31); MCHC 32.5 g/dL (33-37); MCV 96.2 FL (81-99); MONO# 0.92 X1000 (0.11-0.59); MONO% 6.2 % (1.7-9.3); MPV 9.7 FL (7.4-10.4); NEUT# 12.34 X1000 (1.4-6.5); NEUT% 83.1 % (42.2-75.2); PLT 401 X1000 (130-400); RDW 14.5 % (11.5-14.5); WBC 14.85 X1000 (4.8-10.8)
[2018-03-28 06:17] LABS: CALCIUM 9.3 mg/dL (8.8-10.2); CREATININE 1.2 mg/dL (0.7-1.2); POTASSIUM 4.6 mmol/L (3.5-5.1)
--- NOTE | 2018-03-28 06:42 | Diag Imaging Result Doc PS360 ---
EXAM: CHEST-PORTABLE HISTORY: respiratory failure TECHNIQUE: Portable chest COMPARISON: 03/27/2018 FINDINGS: The lungs remain well expanded. No cardiomegaly. There are surgical clips in the left hilum with left apical pleural thickening or atelectasis. Mild increased interstitial markings in the lower lung similar to the prior study IMPRESSION: No significant interval change. Electronically signed by Valentin Russo 03/28/2018 6:39 AM
--- NOTE | 2018-03-28 10:38 | PROGRESS NOTE ---
DATE: 03/28/2018 SUBJECTIVE: The patient says he is feeling a little stronger. He sat up for about 4 hours yesterday. He did stand up for the first time in some time. Breathing is doing a little bit better. He still says he feels. OBJECTIVE: Blood pressure 136/77, respirations 20, pulse 80, and temperature 98.2 degrees Fahrenheit.HEENT: Normocephalic. Extraocular muscles are intact PERRLA. Throat clear. Lungs: Lungs are fairly clear to auscultation. Heart: Regular rate and rhythm without murmurs, gallops, or friction rubs. Abdomen: Soft. Active bowel sounds. No organomegaly or tenderness. Neurological: Cranial nerves 2-12 intact grossly. Sensory and motor intact. Reflexes 1+ all. ASSESSMENT: 1. Left hip fracture. 2. Pneumonia. 3. Pulmonary edema. PLAN: We will continue support. Continue IV antibiotics. cc: MD Addison Castro Jr, MD
[2018-03-28] MEDS: TOBREX OPH SOLN BOTH EYES SCH ×3 (11:45→17:58)
[2018-03-28] MEDS: TOPROL XL PO SCH (11:45)
[2018-03-28] MEDS: PROTONIX PO SCH ×2 (11:45→21:40)
[2018-03-28] MEDS: MIRALAX PO SCH ×2 (11:45→21:40)
[2018-03-28] MEDS: OXY IR PO PRN ×2 (15:35→19:54)
[2018-03-28] MEDS: FLEXERIL PO SCH (21:40)
[2018-03-28] MEDS: LEVAQUIN 500 MG/D5W 500 MG/100 ML IVPB IV SCH (21:40)
[2018-03-29] MEDS: OXY IR PO PRN ×2 (00:10→05:28)
[2018-03-29] MEDS: DUONEB (A & A) INH SCH ×5 (03:06→20:21)
[2018-03-29] MEDS: SOLU-MEDROL IV SCH ×2 (04:43→16:24)
[2018-03-29 06:23] LABS: CALCIUM 9.4 mg/dL (8.8-10.2); CREATININE 1.3 mg/dL (0.7-1.2); POTASSIUM 4.4 mmol/L (3.5-5.1)
[2018-03-29 06:27] LABS: BASO# 0.05 X1000 (0.0-0.2); BASO% 0.3 % (0.0-0.8); EOS# 0.04 X1000 (0.0-0.7); EOS% 0.2 % (0.0-10.0); HEMATOCRIT 37.3 % (42.0-52.0); HEMOGLOBIN 12.1 g/dL (14.0-18.0); IMM GRAN# 0.54 X1000 (0.0-0.04); IMM GRAN% 3.2 % (0.0-0.5); LYMPH# 1.67 X1000 (1.2-3.4); LYMPH% 9.9 % (20.5-51.1); MCH 31.5 PG (27-31); MCHC 32.4 g/dL (33-37); MCV 97.1 FL (81-99); MONO# 1.24 X1000 (0.11-0.59); MONO% 7.4 % (1.7-9.3); MPV 9.6 FL (7.4-10.4); NEUT# 13.31 X1000 (1.4-6.5); PLT 423 X1000 (130-400); RBC 3.84 XMIL (4.7-6.1); RDW 14.6 % (11.5-14.5); WBC 16.85 X1000 (4.8-10.8)
[2018-03-29 06:34] LABS: LYMPHS 11 % (21-51); MONO 7 % (1-9); SEGS 82 % (42-75)
--- NOTE | 2018-03-29 08:46 | Diag Imaging Result Doc PS360 ---
EXAM: CHEST-PORTABLE - 03/29/2018 HISTORY: respiratory failure TECHNIQUE: Portable chest COMPARISON: 03/28/2018 FINDINGS: There are postsurgical changes on the left similar to prior. There is decreased haziness at the left base compared to prior, possibly related to decreased atelectasis. There is no dense consolidation, substantial pleural effusion, or pneumothorax identified. Heart size is within normal limits. IMPRESSION: Decreased haziness at left base compared to prior. Electronically signed by Stu Justice 03/29/2018 8:44 AM
--- NOTE | 2018-03-29 09:20 | PROGRESS NOTE ---
DATE: 03/29/2018 SUBJECTIVE: The patient says he still feels weak, but his breathing is a little bit better. OBJECTIVE: Vital Signs: Blood pressure 151/80, respirations 18, pulse 67, temperature 97.6 degrees Fahrenheit. HEENT: Normocephalic. EOMs intact. PERRLA. Throat clear. Lungs: A few wheezes anteriorly. Has not had a breathing treatment yet this morning. Heart: Regular rate and rhythm without murmurs, gallops, friction rubs. Abdomen: Soft. Active bowel sounds. No organomegaly or tenderness. Neurological: Intact grossly. The patient has been able to stand with assistance and to sit up, but has not walked yet. ASSESSMENT: 1. Left hip fracture, now repaired. 2. Pneumonia. 3. Pulmonary edema. 4. Chronic obstructive pulmonary disease. 5. History of lung cancer. PLAN: Continue support. Hopefully, the patient will continue to regain his strength. Will consider rehab when he is stronger and his lungs are clear. Chest x-ray does show some improvement with less haziness in the left base. cc: MD Addison Castro Jr, MD
[2018-03-29] MEDS: TOBREX OPH SOLN BOTH EYES SCH ×3 (10:05→16:24)
[2018-03-29] MEDS: MIRALAX PO SCH ×2 (10:05→21:33)
[2018-03-29] MEDS: TOPROL XL PO SCH (10:06)
[2018-03-29] MEDS: PROTONIX PO SCH ×2 (10:06→21:33)
[2018-03-29] MEDS: FLEXERIL PO SCH (21:32)
[2018-03-29] MEDS: LEVAQUIN 500 MG/D5W 500 MG/100 ML IVPB IV SCH (21:32)
[2018-03-29] MEDS: MORPHINE IV PRN (23:26)
[2018-03-30] MEDS: OXY IR PO PRN ×2 (00:35→22:29)
[2018-03-30] MEDS: DUONEB (A & A) INH SCH ×7 (03:40→23:29)
[2018-03-30] MEDS: SOLU-MEDROL IV SCH (05:00)
[2018-03-30 05:46] LABS: BASO# 0.04 X1000 (0.0-0.2); BASO% 0.2 % (0.0-0.8); EOS# 0.01 X1000 (0.0-0.7); EOS% 0.1 % (0.0-10.0); HEMATOCRIT 36.4 % (42.0-52.0); HEMOGLOBIN 11.7 g/dL (14.0-18.0); IMM GRAN# 0.61 X1000 (0.0-0.04); IMM GRAN% 3.4 % (0.0-0.5); LYMPH# 1.55 X1000 (1.2-3.4); LYMPH% 8.6 % (20.5-51.1); MCHC 32.1 g/dL (33-37); MCV 96.6 FL (81-99); MONO# 1.21 X1000 (0.11-0.59); MONO% 6.7 % (1.7-9.3); MPV 9.3 FL (7.4-10.4); NEUT# 14.57 X1000 (1.4-6.5); PLT 421 X1000 (130-400); RBC 3.77 XMIL (4.7-6.1); RDW 14.5 % (11.5-14.5); WBC 17.99 X1000 (4.8-10.8)
[2018-03-30 06:07] LABS: AGAP 10; BUN 50 mg/dL (8-22); CALCIUM 9.3 mg/dL (8.8-10.2); CHLORIDE 103 mmol/L (98-107); COSMO 294; CREATININE 1.1 mg/dL (0.7-1.2); ESTIMATED GFR > 60; GLUCOSE 146 mg/dL (70-104); POTASSIUM 4.4 mmol/L (3.5-5.1); SODIUM 139 mmol/L (136-145); TCO2 26 mmol/L (25-35)
[2018-03-30 06:22] LABS: LYMPHS 2 % (21-51); MONO 2 % (1-9); SEGS 94 % (42-75)
--- NOTE | 2018-03-30 07:24 | Diag Imaging Result Doc PS360 ---
EXAM: CHEST-PORTABLE INDICATION: respiratory failure TECHNIQUE: One view COMPARISON: 03/29/2018 FINDINGS: Postsurgical changes at the left upper lung zone are again noted. No new consolidation. There is probably mild atelectasis at the right lung base that is essentially stable. Cardiac silhouette is stable. IMPRESSION: Stable chest. Electronically signed by Miller Whitman 03/30/2018 7:22 AM
[2018-03-30] MEDS ORDERED: MILK OF MAGNESIA PO ONE (08:58)
--- NOTE | 2018-03-30 09:09 | PROGRESS NOTE ---
DATE: 03/30/2018 SUBJECTIVE: The patient says he feels about the same. His breathing has been easier. Chest x- ray has shown improvement over the last several days. OBJECTIVE: Vital Signs: Blood pressure is 146/71, respirations 12, pulse 74, temperature 97.7 degrees Fahrenheit. HEENT: Normocephalic. EOMs intact. PERRLA. Throat clear. Lungs: Sound clear to auscultation and percussion without rhonchi, rales, or wheezes. Heart: Regular rate and rhythm without murmurs, gallops, or friction rubs. Abdomen: Soft. Active bowel sounds. No organomegaly or tenderness. Neurological: Intact grossly. The patient is still very weak. He has been sitting up in a chair. He has not been walking much yet. ASSESSMENT: 1. Left hip fracture. 2. Pneumonia. 3. Chronic obstructive pulmonary disease. PLAN: Continue to work with him until his lungs are enough that we can send him to rehab. cc: MD Addison Castro Jr, MD
[2018-03-30] MEDS: TOPROL XL PO SCH (10:33)
[2018-03-30] MEDS: PROTONIX PO SCH ×2 (10:33→21:26)
[2018-03-30] MEDS: TOBREX OPH SOLN BOTH EYES SCH ×3 (10:33→18:47)
[2018-03-30] MEDS: MIRALAX PO SCH ×2 (10:34→21:26)
--- NOTE | 2018-03-30 13:04 | PULMONOLOGY PROGRESS NOTE ---
DATE: 03/30/2018 SUBJECTIVE: The patient is awake, alert, and conversant. He is sitting in his chair. He reports he feels okay. He has no increased work of breathing. OBJECTIVE: Vital Signs: The patient is afebrile. Blood pressure 146/71, oxygen saturation 97% on high-flow FiO2. HEENT: Pupils are equal and reactive. Oropharynx is clear. Neck: Supple. Chest: Reveals prolonged expiratory phase with crackles at the right base. Cardiac: S1-S2. Abdomen: Soft. Extremities: Without edema. LABORATORIES: White blood count 17.99, hemoglobin 11.7, platelet count 421,000. Sodium 139, potassium 4.4, chloride 103, bicarbonate 26, BUN 50, creatinine 1.1. IMAGING: Chest x-ray reveals volume loss left apex with minimal atelectasis/clearing at the right base. IMPRESSION: An 82-year-old with: 1. Community-acquired pneumonia. 2. Severe chronic obstructive pulmonary disease. 3. Acute hypoxemic respiratory failure. 4. Acute renal insufficiency. 5. Delirium with resolution. 6. Status post hip fracture repair. 7. Malnutrition with continued p.o. intake improvement. RECOMMENDATIONS: 1. Transition patient to oral steroids. 2. Continue bronchial hygiene. 3. Consider 5 days of oral Levaquin at the time of discharge given severity of his emphysematous changes. 4. Attempt to balance intake and output. 5. Consider transition to rehabilitation in the near future. cc: MD Addison James MD
[2018-03-30] MEDS: PREDNISONE PO SCH (14:02)
--- NOTE | 2018-03-30 19:23 | Diag Imaging Result Doc PS360 ---
EXAM: SINUSES HISTORY: nasal congestion TECHNIQUE: Five views COMPARISON: 01/14/2015 FINDINGS: No sinus opacification. No air-fluid levels. No mucosal thickening. IMPRESSION: No sinusitis. Electronically signed by Valentin Russo 03/30/2018 7:21 PM
[2018-03-30] MEDS: LEVAQUIN 500 MG/D5W 500 MG/100 ML IVPB IV SCH (21:26)
[2018-03-30] MEDS: FLEXERIL PO SCH (21:26)
[2018-03-31] MEDS: DUONEB (A & A) INH SCH ×6 (03:47→23:23)
--- NOTE | 2018-03-31 06:40 | Diag Imaging Result Doc PS360 ---
EXAM: CHEST-PORTABLE HISTORY: respiratory failure TECHNIQUE: Portable chest single view COMPARISON: 03/30/2018 FINDINGS: The lungs are well expanded. There are surgical clips in the left hilum. No cardiomegaly. Left apical pleural thickening and scarring. No pleural effusions identified. The overall appearance of the chest is similar to the prior exam. IMPRESSION: Stable chest. Electronically signed by Valentin Russo 03/31/2018 6:36 AM
[2018-03-31] MEDS ORDERED: CITRATE OF MAGNESIA PO ONE (08:51)
[2018-03-31] MEDS: MIRALAX PO SCH ×2 (09:12→20:17)
[2018-03-31] MEDS: TOBREX OPH SOLN BOTH EYES SCH ×3 (09:12→20:26)
[2018-03-31] MEDS: PROTONIX PO SCH ×2 (09:12→20:17)
[2018-03-31] MEDS: PREDNISONE PO SCH (09:12)
[2018-03-31] MEDS: TOPROL XL PO SCH (09:13)
--- NOTE | 2018-03-31 09:31 | PROGRESS NOTE ---
DATE: 03/31/2018 SUBJECTIVE: The patient says he still feels weak. Has not had a bowel movement yet even after milk of magnesia and he has been on MiraLAX. He has been on narcotics as well. We are cutting back on the narcotics, I really do not think he needs them any more. OBJECTIVE: Vital Signs: Blood pressure 136/81, respirations 18, pulse 68, temperature 97.8 degrees Fahrenheit. HEENT: Normocephalic. PERRLA clear. Lungs: Clear to auscultation and percussion without rhonchi, rales, or wheezes. Heart: Regular rate and rhythm without murmurs, gallops, or friction rubs. Abdomen: Soft. Active bowel sounds. No organomegaly or tenderness. Neurological: Intact grossly. ASSESSMENT: 1. Left hip fracture. 2. Pneumonia. 3. Pulmonary edema. 4. Constipation. 5. Chronic obstructive pulmonary disease. 6. History of lung cancer. PLAN: We will give magnesium citrate and check for impaction. If we can get him to have a bowel movement today, possibly can go to rehab tomorrow. We will stop his narcotics and let him take Tylenol for pain. He has Flexeril for muscle cramps. cc: MD Addison Castro Jr, MD
[2018-03-31] MEDS: FLEXERIL PO SCH (20:17)
[2018-03-31] MEDS: TYLENOL PO PRN (20:26)
--- NOTE | 2018-03-31 22:09 | PULMONOLOGY PROGRESS NOTE ---
DATE: 03/31/2018 SUBJECTIVE: Patient is awake, alert, and conversant. He is sitting in the chair. He is much more animated and appears significantly stronger today. OBJECTIVE: Vital Signs: The patient has been afebrile for the last 24 hours. Blood pressure 134/70, heart rate 80, respiratory rate 18, oxygen saturation 96%. HEENT: Pupils are equal and reactive. Oropharynx is clear. Neck: Supple. Chest: Reveals crackles at the right base with prolonged expiratory phase. Cardiac: S1-S2. Abdomen: Soft without hepatosplenomegaly. Extremities: Without edema. LABORATORIES: Sodium 139, potassium 4.4, chloride 103, bicarbonate 26, BUN 50, creatinine 1.1. IMAGING: Chest x-ray reveals postsurgical changes on the left with clearing of infiltrates on the right. IMPRESSION: 1. An 82-year-old with community-acquired pneumonia. 2. Severe chronic obstructive pulmonary disease. 3. Acute hypoxemic respiratory failure. 4. Acute renal insufficiency with improvement. 5. Status post hip fracture. DISCUSSION: Overall, patient continues to improve. He has some constipation, but is otherwise without complaints. RECOMMENDATIONS: 1. Agree with plans for discharge to rehab. From pulmonary standpoint, he should be able to go on 04/01/2018. 2. Recommend 5 additional days of oral Levaquin given the severity is emphysema and emphysematous blebs. 3. Continue bronchial hygiene. 4. Continue oxygen at the time of discharge to maintain saturation greater than 90%. cc: MD Addison James MD
[2018-04-01] MEDS: DUONEB (A & A) INH SCH ×3 (03:47→11:09)
--- NOTE | 2018-04-01 07:11 | Diag Imaging Result Doc PS360 ---
EXAM: CHEST-PORTABLE 04/01/2018 HISTORY: respiratory failure TECHNIQUE: AP portable at 0551 COMMENT: There has been left upper lobectomy. There is apical pleural thickening and opacity on the left which was also present on 03/31/2018. There is slight worsening in atelectasis versus pneumonia in the left base compared to the previous study. Otherwise there has been no significant change. IMPRESSION: Atelectasis versus pneumonia left lower lobe. Electronically signed by Clinton Caceres 04/01/2018 7:09 AM
[2018-04-01] MEDS ORDERED: LEVAQUIN PO SCH (09:00)
[2018-04-01] MEDS: PROTONIX PO SCH (09:29)
[2018-04-01] MEDS: TOPROL XL PO SCH (09:29)
[2018-04-01] MEDS: PREDNISONE PO SCH (09:29)
[2018-04-01] MEDS: TOBREX OPH SOLN BOTH EYES SCH (09:30)
[2018-04-01] MEDS: MIRALAX PO SCH (09:30)
--- NOTE | 2018-04-01 09:45 | DISCHARGE SUMMARY ---
ADMISSION DATE: 03/16/2018 DISCHARGE DATE: 04/01/2018 FINAL DIAGNOSES: 1. Left hip fracture. 2. Bilateral lower lobe pneumonia. 3. Pulmonary edema. SECONDARY DIAGNOSES: 1. Previous lung cancer. 2. History of GI bleed. 3. Coronary artery disease. 4. Hypercholesteremia. 5. Hypertension. PRESENT ILLNESS: The patient was not feeling well. He was back and forth seeing his who was in the hospital at the time. He tripped and fell breaking his left hip. He came to the emergency room. He was having trouble breathing initially. He probably had pneumonia before he fell and broke his hip. Consultation was made with Dr. Antoine of pulmonology and Dr. Butler orthopedics. The patient did have some respiratory distress. He did get better and had his surgery. He continued to have pneumonia and was slow with recovery. He was constipated during his hospitalization and, finally gave him some magnesium citrate and he got results yesterday. He still has been very weak as he has had COPD, but has finally gotten to the point now where he is better. He has been on Levaquin for his antibiotic. Chest x-ray shows improvement. There is a left lower lobe atelectasis still present. OBJECTIVE: Vital Signs: Temperature 98.1 degrees Fahrenheit, pulse 72, respirations 16, and blood pressure 121/63. HEENT: Normocephalic. EOMs intact. PERRLA. Throat clear. Lungs: Clear to auscultation and percussion without rhonchi, rales, or wheezes. Heart: Regular rate rhythm without murmurs, gallops, or friction rubs. Abdomen: Soft. Active bowel sounds. No organomegaly or tenderness. Neurological: Cranial nerves 2-12 intact grossly. Sensory and motor intact. Reflexes 1+ all. IMPRESSION AND PLAN: White count is a little high at 17,000, but he has been on prednisone. We will continue with that, or steroids in some form. He will go to rehab, and I will see him back in the office in 3 weeks when he gets out of rehab. Please see medication list. I appreciate the help from Dr. Butler and Dr. Antoine. cc: MD Addison Castro Jr, MD
[2018-04-01 13:43] VITALS: BP 141/91
--- NOTE | 2018-04-01 21:17 | PULMONOLOGY PROGRESS NOTE ---
DATE: 04/01/2018 SUBJECTIVE: Patient is awake, alert and conversant. He is sitting in his chair. He has tolerated p.o. intake this morning without difficulty. He has fluctuating amounts of sputum production. OBJECTIVE: Vital Signs: Patient has been afebrile for the last 24 hours. Oxygen saturation 99% on 5 L per nasal cannula. Blood pressure 125/69, heart rate 83, respiratory rate 18. HEENT: Pupils are equal and reactive. Oropharynx is clear. Neck: Supple. Chest: Reveals occasional rhonchi bilaterally, which clear with cough. Cardiac exam: S1-S2. Abdomen: Soft and without hepatosplenomegaly. Extremities: Without edema. IMPRESSION: An 82-year-old with: 1. Community-acquired pneumonia. 2. Acute hip fracture, status post repair. 3. Severe chronic obstructive pulmonary disease. 4. Acute hypoxemic respiratory failure. 5. Acute renal insufficiency. DISCUSSION: The patient continues to improve. He did have constipation, but had a bowel movement yesterday. He previously had delirium. This has resolved. He is anxious to leave and begin his rehab program. RECOMMENDATIONS: 1. Continue 5 L per nasal cannula with transition to a rehab facility. 2. Continue a steroid taper. 3. Complete antibiotic course. 4. I can see on an outpatient basis after he has completed rehab if the patient wishes pulmonary follow-up. cc: MD Addison James MD
== END 2018-04-01 14:20 | DRG 480 ==
LOC: ED 16:09 → ICU 20:29 → 4N 03-24 17:27
PROVIDERS: ADMIT Family Medicine; ATTEND Emergency Medicine
CPT/HCPCS: 70220; 71010; 71045; 72192; 73030; 73502; 76000; 80048; 80053; 81001; 82550; 82607; 82805; 83605; 83735; 83880; 84100; 84484; 85014; 85018; 85025; 85610; 85730; 87040; 87070; 87205; 87899; 93005; 93306; 94640; 94761; 94762; 94799; 96365; 96372; 96375; 97110; 97162; 97167; 97530; 97535; 99285; A9270; C8929; J0690; J1885; J1940; J1956; J2270; J2405; J2920; J7040; J7506; J7512; Q9957

== ENCOUNTER 2019-04-13 18:17 | Inpatient (IN) ==
[2019-04-13 19:29] LABS: INFLUENZA A NEGATIVE (NEGATIVE); INFLUENZA B NEGATIVE (NEGATIVE)
[2019-04-13 20:03] LABS: BASO# 0.03 X1000 (0.0-0.2); BASO% 0.2 % (0.0-0.8); EOS# 0.04 X1000 (0.0-0.7); EOS% 0.2 % (0.0-10.0); HEMATOCRIT 42.4 % (42.0-52.0); IMM GRAN# 0.02 X1000 (0.0-0.04); IMM GRAN% 0.1 % (0.0-0.5); LYMPH# 1.09 X1000 (1.2-3.4); LYMPH% 6.7 % (20.5-51.1); MCH 30.8 PG (27-31); MCV 93.4 FL (81-99); MONO# 0.96 X1000 (0.11-0.59); MONO% 5.9 % (1.7-9.3); MPV 9.4 FL (7.4-10.4); NEUT# 14.01 X1000 (1.4-6.5); NEUT% 86.9 % (42.2-75.2); PLT 271 X1000 (130-400); RBC 4.54 XMIL (4.7-6.1); RDW 15.7 % (11.5-14.5); WBC 16.15 X1000 (4.8-10.8)
[2019-04-13 20:09] LABS: INR 1.01; PROTIME 13.8 Seconds (11.0-16.0)
[2019-04-13 20:10] LABS: PTT 39.6 Seconds (22.3-41.8)
[2019-04-13 20:12] LABS: ALBUMIN 4.4 g/dL (3.5-5.0); CALCIUM 9.2 mg/dL (8.8-10.2); CREATININE 1.3 mg/dL (0.7-1.2); POTASSIUM 4.2 mmol/L (3.5-5.1); TOTAL BILIRUBIN 0.6 mg/dL (0.20-1.00); TOTAL PROTEIN 7.6 g/dL (6.3-8.3)
--- NOTE | 2019-04-13 20:13 | Diag Imaging Result Doc PS360 ---
EXAM: CHEST-1 VIEW 04/13/2019 HISTORY: ams TECHNIQUE: AP portable erect at 2003 COMMENT: There has been left upper lobectomy. There is pleural thickening and fibrotic change in the left apex. There is dense alveolar opacity in the left base which was not present on 01/01/2019. There is some questionable opacity in the right lower lobe as well. IMPRESSION: Left lower lobe pneumonia. Questionable pulmonary edema. Electronically signed by Clinton Caceres 04/13/2019 8:11 PM
[2019-04-13 20:44] LABS: BANDS 1 % (0-1); HYPOCHROM 2+; LYMPHS 11 % (21-51); MONO 5 % (1-9); SEGS 83 % (42-75)
[2019-04-13] MEDS ORDERED: NS 1,000 ML IV ONE (20:57)
[2019-04-13] MEDS ORDERED: VANCOMYCIN 1 GM/NS 1 GM/250 ML IVPB IV ONE (20:58)
[2019-04-13] MEDS ORDERED: LEVAQUIN 750 MG/D5W 750 MG/150 ML IVPB IV SCH (21:00)
[2019-04-13 22:13] LABS: BE -0.3 mmoll (-3.0-3.0); BLOOD TYPE ARTERIAL; HCO3-(ACT) 24.4 mmoll (20.0-26.0); METHB 1.1 % (0.0-1.5); O2(CT) 16.7 mL/dL (15.0-23.0); PCO2(98.6) 32 mmHg (35-45); PO2(98.6) 50 mmHg (60-100); SAMPLE BLOOD; THB 13.6 g/dL (11.5-17.4); pH(98.6) 7.46 (7.35-7.45)
[2019-04-13 22:16] LABS: O2HB 87.6 % (95.0-99.0)
[2019-04-13 22:17] LABS: ALLEN TEST YES; MODALITY CANNULA
--- NOTE | 2019-04-13 23:02 | PROVIDER DOCUMENTATION ---
This chart was entered by Jeanette Whitman Scribe, acting as scribe for Bryce Burris CRNP. HPI-General Adult - General Chief Complaint: Weakness Stated Complaint: FEVER/WEAKNESS Time Seen by Provider: 04/13/19 19:29 Source: patient, family Allergies/Adverse Reactions: Patient Allergies Allergy/AdvReac Type Severity Reaction Status Date / Time No Known Allergies Allergy Verified 05/22/16 21:01 Home Medications: Home Medication List Medication Instructions Recorded Confirmed Last Taken Type Acetaminophen/Diphenhydramine 2 each PO HS PRN 07/04/17 07/04/17 Unknown History [Tylenol Pm] PRAVAstatin [Pravachol] 40 mg PO DAILY 07/04/17 07/04/17 Unknown History Iron Carbonyl/Ascorbic Acid 1 ea PO DAILY #30 tab 07/07/17 Unknown Rx [Icar-C] Pantoprazole Sodium [Protonix] 40 mg PO BID #60 tablet. 07/07/17 Unknown Rx Acetaminophen [Tylenol] 650 mg PO Q4H PRN PRN tablet 04/01/18 Unknown Rx Albuterol 2.5MG/Ipratrop 0.5MG 3 ml INH RTQ4H neb 04/01/18 Unknown Rx [Duoneb (A & A)] Cyclobenzaprine [Flexeril] 5 mg PO QHS tablet 04/01/18 Unknown Rx Levofloxacin [Levaquin] 500 mg PO DAILY #7 tablet 04/01/18 Unknown Rx Metoprolol Succinate E.r. [Toprol 100 mg PO DAILY tablet 04/01/18 Unknown Rx Xl] Petrolatum, White [Vaseline] 1 gm TOP PRN PRN jelly 04/01/18 Unknown Rx Polyethylene Glycol 3350 [Miralax] 17 gm PO BID powder, packet 04/01/18 Unknown Rx Prednisone 10 mg PO DAILY tablet 04/01/18 Unknown Rx - History of Present Illness -Gen Adult Nature of Presenting Problems: 83 yowm presents w/family to er w/cc 102.7 fever, cough, weakness, trouble amb, bilat leg pain, chest soreness, sob, and htn sudden onset. pt sts has had aching and leg pain for some time. has had 3 falls last 3-4 days. pt left work early today. pt was seen in Dr. Carrington' office yest and had labs and chest xray done, no results. pt family sts he is cool on palp but still running low grade fever. Location of Pain/Injury: reports: lower extremity (bilat leg pain), generalized (body aches and weakness) Pain Radiation: reports: no radiation Quality of Pain: reports: aching Severity: reports: mild Onset/Duration: reports: abrupt, 3 days ago, 4 days ago, other (ongoing aching and leg pain) Timing: reports: still present Context/Activities at Onset: reports: none Modifying Factors: improves with: nothing Associated Symptoms: reports: cough, fever/chills, muscle aches, shortness of breath, weakness, trouble walking, other (bilat leg pain) Review of Systems - Adult - REVIEW OF SYSTEMS - ADULT Constitutional: reports: see HPI, chills, fever. denies: fatique, night sweats Eyes: reports: no symptoms reported Ears, Nose, Mouth & Throat: reports: no symptoms reported Cardiovascular: reports: see HPI, other (htn and chest soreness). denies: edema, irregular heart rate, palpitations Respiratory: reports: see HPI, cough, shortness of breath. denies: hemoptysis, pleurisy, wheezing Gastrointestinal: reports: no symptoms reported Genitourinary: reports: no symptoms reported Musculoskeletal: reports: see HPI, bone pain (bilat leg pain), muscle aches (generalized), muscle weakness (generalized). denies: joint pain, neck pain Integumentary: reports: no symptoms reported Neurological: reports: see HPI, loss of balance. denies: dizziness/vertigo, syncope, tremors Psychiatric: reports: no symptoms reported Endocrine: reports: no symptoms reported Hematologic/Lymphatic: reports: no symptoms reported Allergic/Immunologic: reports: no symptoms reported All Other Systems: Reviewed and Negative Past History - Adult - PAST MEDICAL HISTORY-ADULT Review of Records: reports: Nursing Assessment Review, Medications Reviewed, Social history reviewed & non-contributory. Major Childhood Illnesses: reports: denies history Cardiovascular: reports: HTN Respiratory: reports: cancer (left lung) Gastrointestinal: reports: denies history Obstetrical/Gynecological: reports: denies history Genitourinary: reports: denies history Musculoskeletal: reports: denies history Neurological: reports: denies history Endocrine/Immune: reports: denies history Other Conditions: reports: denies history - PRIOR SURGERIES/PROCEDURES Surgical/Procedure History: reports: orthopedic (extremity), other (lobectomy) - IMMUNIZATION STATUS Childhood Immunizations: See Nurse Assessment Flu Vaccine: See Nurse Assessment - FAMILY HISTORY Family History: reviewed, not pertinent - SOCIAL HISTORY Smoking: other (former smoker) Substance Use: none/never Physical Exam-General - PHYSICAL EXAM-ADULT Initial Vital Signs Reviewed: Yes - CONSTITUTIONAL General Appearance: alert, no apparent distress. negative: slow to respond, obtunded, combative - EYES Eyes: PERRL/EOMI - HEAD, EARS, NOSE, MOUTH & THROAT HENMT: normocephalic/atraumatic, normal ENT inspection, TMs normal, pharynx normal. negative: moist mucous membranes (dry mucous membranes), pharyngeal erythema, tonsillar exudate - NECK Neck: non-tender, full range of motion, supple, normal inspection - RESPIRATORY Respiratory: chest non-tender, lungs clear, no pleuratic chest pain, no r espiratory distress, no accessory muscle use, decreased breath sounds (diminshed breath sounds rt lower lobe). negative: normal breath sounds, wheezing, dull on percussion, prolonged expiration - CARDIOVASCULAR Cardiovascular: normal peripheral pulses, regular rate, rhythm, no edema, no gallop, no JVD, no murmur, tachycardia, other (HTN). negative: extra beats, friction rub, irregularly irregular - GASTROINTESTINAL (ABDOMEN) Abdominal Exam: normal bowel sounds, non tender, soft - MUSCULOSKELETAL Back Exam: normal inspection Extremity: normal range of motion, non-tender, normal inspection, no pedal edema , normal capillary refill. 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, grossly normal, no motor/sensory deficits - PSYCHIATRIC Psych/Mental Status: normal mood/affect, normal thought content, normal thought process, oriented x 3 Progress - PLAN OF CARE/RESULTS Progress/Plan/Lab Results: Vital Signs - 8 hr 04/13/19 18:58 Temperature 100.1 F H Pulse Rate 112 H Respiratory Rate 22 Blood Pressure 172/84 O2 Sat by Pulse Oximetry 93 L Laboratory Results - last 24 hr 04/13/19 19:04 Influenza A (Rapid) NEGATIVE Influenza B (Rapid) NEGATIVE Orders Category Date Time Status Cardiac Monitoring NOW Care 04/13/19 19:02 Active IV Insertion NOW Care 04/13/19 19:03 Completed NEWS Score >or=5:Order NEWS Bundle S.O. NOW Care 04/13/19 19:02 Active Notify Provider of NEWS Score NOW Care 04/13/19 19:03 Active CHEST-1 VIEW [RAD] Stat Exams 04/13/19 19:03 Ordered BLOOD CULTURE [BLDCUL] Stat Lab 04/13/19 19:03 Uncollected CBC WITH DIFF [HEME] Stat Lab 04/13/19 19:35 Results CK PROFILE [SP CHEM] Stat Lab 04/13/19 19:35 Received COMPREHENSIVE METABOLIC PANEL [CHEM] Stat Lab 04/13/19 19:35 Received Flu [INFLUENZA SCREEN PL] Stat Lab 04/13/19 19:04 Completed LACTATE, PLASMA [CHEM] Lab 04/13/19 22:15 Uncollected LACTATE, PLASMA [CHEM] Lab 04/14/19 01:15 Uncollected LACTATE, PLASMA [CHEM] Q3H Lab 04/13/19 19:35 Received PROTIME WITH INR [COAG] Stat Lab 04/13/19 19:35 Received PTT [COAG] Stat Lab 04/13/19 19:35 Received TROPONIN T HIGH SENSITIVITY Stat Lab 04/13/19 19:35 Received URINALYSIS W/POSS RFLX CULT [URINALYSIS] Stat Lab 04/13/19 19:03 Uncollected O2 Per Protocol Stat Oth 04/13/19 19:03 Active EKG [EKG] Stat Ther 04/13/19 19:40 Ordered Result Diagrams: 04/13/19 19:35 04/13/19 19:35 - EKG 1 Time of EKG reading by physician:: 19:57 EKG Read and Signed by:: Gabriel Hernandez EKG Interpretation (*Must complete 3 of following elements*): Normal Rate: 109 Rhythm: Sinus tachycardia [place]: normal QRS: normal [place] Interval: normal ST Wave: normal Comments: No Stemi - XRAY 1 XRAY Study: Chest Impression: Abnormal, See EMR Report ( EXAM: CHEST-1 VIEW 04/13/2019 HISTORY: ams TECHNIQUE: AP portable erect at 2002 COMMENT: There has been left upper lobectomy. There is pleural thickening and fibrotic change in the left apex. Th ere is dense alveolar opacity in the left base which was not present on 01/01/2019. There is some questionable opacity in the right lower lobe as well. IMPRESSION: Left lower lobe pneumonia. Questionable pulmonary edema. Electronically signed by Clinton Caceres 04/13/2019 8:11 PM 04/13/192010 Interpreting Physician: Clinton Caceres MD Dictated Date/Time: 04/13/192009) - CONSULTS/PCP/HOSPITALIST Notification #1 *Consult/PCP/Hospitalist*: Dr Luna Time Discussed: 21:09 Reason/Comments: Bilateral Lower lobe Pnuemonia Consult Disposition: other (patient and family wishes to transfer to [facility] to see PCP Dr Carrington and Dr Cheryl Oro in agreement) #2 Consult: Dr Angel Time Discussed: 21:31 Reason/Comments: Bilateral lower lobe pneumonia, SOB Consult Disposition: Admit Departure - Departure Date of Disposition Decision: 04/13/19 Time of Disposition Decision: 21:32 DIAGNOSIS: Community acquired bilateral lower lobe pneumonia Dyspnea Qualifiers: Dyspnea type: dyspnea on exertion Qualified Code(s): R06.09 - Other forms of dyspnea Disposition: ADMITTED INPATIENT 09 Certified Medical Emergency: Emergent Condition: Critical - Critical Care Note This patient required my direct & personal management of CC.: No Attestation - Physician/ ROBBIN Attestation Patient care was provided by Advanced Practice Provider:: Yes Advanced Practice Provider:: Bryce Burris Advanced Practice Provider documentation review:: The Mid-level provider do cumentation, treatment plan and medical decision making was reviewed by the physician who agrees with all treatment and medical decision making by the [facility]. The physician spent face to face time with patient:: No Advanced Practice Provider documentation review:: Supervising physician onsite and consulted in the evaluation and care of this patient. The physician did not have a face to face encounter with the patient. This chart was documented by the indicated scribe, (Jeanette Whitman Scribe) and accurately reflects the services I performed and decisions made by me, Bryce Burris CRNP, as attested by the provider's signature.
[2019-04-14] MEDS ORDERED: DUONEB (A & A) INH PRN (00:07)
[2019-04-14 00:51] LABS: URINE SOURCE CLEAN CATCH
[2019-04-14] MEDS ORDERED: LABETALOL IV PRN (00:51)
--- NOTE | 2019-04-14 01:00 | EKG Report ---
Test Performed on : 04/13/2019 7:56:47 PM Test Reason : weakness Blood Pressure : / mmHG Vent. Rate : 109 BPM Atrial Rate : 109 BPM P-R Int : 182 ms QRS Dur : 090 ms QT Int : 336 ms P-R-T Axes : 060 064 065 degrees QTc Int : 452 ms Sinus tachycardia. Otherwise normal ECG When compared with ECG of 16-MAR-2018 19:32, Non-specific change in ST segment in Inferior leads Unconfirmed Result
[2019-04-14] MEDS: NS 1,000 ML IV SCH ×2 (01:34→16:21)
[2019-04-14] MEDS: TYLENOL PO PRN (01:36)
[2019-04-14 02:04] LABS: BILIRUBIN URINE NEGATIVE (NEGATIVE); COLOR YELLOW; GLUCOSE URINE NEGATIVE (NEGATIVE); KETONE URINE TRACE mg/dL (NEGATIVE); TURBIDITY URINE CLEAR (CLEAR)
[2019-04-14 02:05] LABS: BLOOD URINE NEGATIVE (NEGATIVE); LEUKOCYTES URINE NEGATIVE (NEGATIVE); NITRITE URINE NEGATIVE (NEGATIVE); PROTEIN URINE 100 mg/dL (NEGATIVE); SP GRAVITY URINE >= 1.030; UROBILINOGEN URINE NORMAL (NORMAL)
[2019-04-14 02:07] LABS: UR EPITHELIAL CELLS <10 /HPF (<10); URINE BACTERIA NEGATIVE /HPF; URINE RBC <10 /HPF (<10); URINE WBC <10 /HPF (<10)
[2019-04-14] MEDS: DUONEB (A & A) INH SCH ×6 (04:05→22:32)
--- NOTE | 2019-04-14 06:23 | HISTORY AND PHYSICAL ---
CHIEF COMPLAINT: Cough for about 1 day. HISTORY OF PRESENT ILLNESS: Mr. Scottie Richardson is an 83-year-old male who has a history of coronary artery disease, hypertension, hyperlipidemia, history of right lung cancer status post partial pneumonectomy. He presents with cough for about one day productive of whitish sputum. He denies any shortness of breath. No hemoptysis. Admits to having wheezing as well as a fever. The patient had a chest x-ray at the time of presentation which showed evidence of worsening pulmonary edema particularly in the right lower lobe. The patient initially presented to the [place] [facility] but has now been referred to [facility] for further management. PAST MEDICAL HISTORY: The patient's past medical problems is that of history of right lung cancer status post pneumonectomy, hyperlipidemia, hypertension, and coronary artery disease with a history of stent placement, history of GI blood loss secondary to peptic ulcer disease as well as also history of anemia. PAST SURGICAL HISTORY: Patient has had PTCA in the past. partial pneumonectomy right lung for right lung cancer. Bilateral knee surgery. Left ankle surgery. Cataract surgery. FAMILY HISTORY: Positive for cancer. SOCIAL HISTORY: No history of cigarette smoking. No alcohol or drug use. ALLERGIES: No known drug allergies. MEDICATIONS: Tylenol as directed Pravastatin 40mg daily I carc c plus as directed Protonix 40mg bid Duoneb as directed Flexeril 5mg po qhs Toprol 100mg daily Prednisone 10mg as directed Miralax as directed Petroleum white as directed REVIEW OF SYSTEMS: Constitutional: He has fever. 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 Eyes: No blurred vision. ENT: No sinus problems. Cardiovascular: No chest pain. GI: No vomiting, diarrhea or abdominal pain. He still has some nausea. : No dysuria. Dermatology: No skin lesions. Hematology: No bleeding disorder. Endocrinology: No thyroid disease or diabetes. Psychiatric: No anxiety or depression. Allergies/Hematology: No symptoms suggestive of allergic rhinitis. PHYSICAL EXAMINATION: VITAL SIGNS: Temperature 99 degrees, pulse 104 respirations 24, blood pressure 188/98, and oxygen saturation is 97%. HEENT: Atraumatic and normocephalic. He is anicteric. No oral lesions noted. NECK: No lymphadenopathy or thyromegaly. Trachea central. CARDIOVASCULAR: S1, S2. RESPIRATORY: There is evidence of good air entry bilaterally. ABDOMEN: Soft, nontender. No masses felt. EXTREMITIES: No evidence of edema. CENTRAL NERVOUS SYSTEM: No obvious focal deficits noted. LABORATORY DATA: WBC 16.15, hematocrit 42.4 with a platelet count of 271,000. INR is 1.01. ABG 7.46/32/50/87.6. Sodium is 136, potassium 4.2, chloride 99, bicarb 23, BUN 18, and creatinine is 1.3. X-ray of the chest shows evidence of worsened pulmonary edema particularly on the right lower lobe. ASSESSMENT AND PLAN: 1. Probable pneumonia. Obtain sputum culture and blood cultures. Maintain patient on empiric antibiotics. 2. Probable pulmonary edema. We will use diuretics as needed. Check proBNP level. Check 2D echo of the heart. 3. Coronary artery disease. Asymptomatic. Maintain patient on aspirin, statin and beta jayla. 4. Hypertension. Optimize blood pressure control. 5. Hyperlipidemia. Continue lipid-lowering agent. 6. History of lung cancer, Right side, status post lobectomy. Aware. 7. Deep vein thrombosis prophylaxis. Sequential compression devices. 8. Gastrointestinal prophylaxis. Proton pump inhibitor. cc: Sheldon Angel MD [facility]
--- NOTE | 2019-04-14 09:11 | PROGRESS NOTE ---
DATE: 04/14/2019 SUBJECTIVE: The patient says he has had a cough with some sputum production and a fever at home. Came in with hypoxia and a PO2 of only 50. He is feeling a little bit better now. He has been started on Levaquin, was given vancomycin. Since he has had GERD in the past, I am going to go ahead and start some Rocephin on him to cover for any anaerobes just in case he aspirated. There was also some concern about there may have been some pulmonary edema. ProBNP and an echocardiogram has been ordered. This has all started about 2 days ago. OBJECTIVE: Vital Signs: Temperature is 98.3 degrees Fahrenheit, pulse 91, respirations 20, blood pressure 146/83. When he first came in, his temperature was 100.1 degrees Fahrenheit. HEENT: Normocephalic. Lungs: Sound fairly clear to auscultation. He is dull in the right lung field because of his previous surgery for lung cancer. Heart: Regular rate and rhythm without murmurs, gallops, friction rubs. Abdomen: Soft with active bowel sounds. No organomegaly or tenderness. Neurological exam: Intact grossly. He is oriented x3. X-RAYS: Chest x-ray shows a left lower lobe infiltrate and possible edema in the right lower lobe. ASSESSMENT: 1. Left lower lobe pneumonia. 2. Questionable pulmonary edema, secondary diagnoses of gastroesophageal reflux disease chronic obstructive pulmonary disease, status post lung cancer, hypercholesterolemia, coronary artery disease. PLAN: Continue antibiotics and Rocephin. He is on Levaquin. We will get other studies. He is to get another chest x-ray tomorrow. Follow lab work. cc: Domingo Carrington Jr, MD
[2019-04-14] MEDS: PROTONIX PO SCH ×2 (10:12→21:15)
[2019-04-14] MEDS: ICAR-C PO SCH (10:12)
[2019-04-14] MEDS: PRAVACHOL PO SCH (10:12)
[2019-04-14] MEDS: ASPIRIN PO SCH ×2 (10:12→10:20)
[2019-04-14] MEDS: TOPROL XL PO SCH (10:12)
[2019-04-14] MEDS: ROCEPHIN 1 GM in NS 50 ML IV SCH ×2 (10:13→21:15)
[2019-04-14] MEDS: LEVAQUIN 750 MG/D5W 750 MG/150 ML IVPB IV SCH (21:15)
[2019-04-14] MEDS: REQUIP PO SCH (21:15)
[2019-04-14] MEDS: FLEXERIL PO SCH (21:15)
[2019-04-15] MEDS: DUONEB (A & A) INH SCH ×6 (03:17→23:45)
--- NOTE | 2019-04-15 07:06 | Diag Imaging Result Doc PS360 ---
EXAM: CHEST-PORTABLE 04/15/2019 HISTORY: pneumonia TECHNIQUE: AP portable at 0625 COMMENT: There is still ill-defined opacity in the lower lung field on the left as there was on 04/13/2019. There is worsened opacification of the lateral right base. IMPRESSION: Slightly worsened bronchopneumonia. Electronically signed by Clinton Caceres 04/15/2019 7:03 AM
[2019-04-15] MEDS: TOPROL XL PO SCH (08:20)
[2019-04-15] MEDS: PRAVACHOL PO SCH (08:21)
[2019-04-15] MEDS: PROTONIX PO SCH ×2 (08:21→21:23)
[2019-04-15] MEDS: ICAR-C PO SCH (08:21)
[2019-04-15] MEDS: ROCEPHIN 1 GM in NS 50 ML IV SCH ×2 (08:22→21:21)
[2019-04-15] MEDS: NS 1,000 ML IV SCH ×2 (08:33→23:25)
[2019-04-15] MEDS: ASPIRIN PO SCH (08:35)
--- NOTE | 2019-04-15 08:53 | PROGRESS NOTE ---
DATE: 04/15/2019 SUBJECTIVE: The patient says he feels about the same. He did have a little temp this morning of 100.5 degrees Fahrenheit. Lab work is not back from lab yet. OBJECTIVE: Vital Signs: Blood pressure is 147/71, respirations 24, pulse 93 and regular, temp 98.6 degrees Fahrenheit (earlier, it was 100.5 degrees Fahrenheit). HEENT: Normocephalic. EOMs intact. Throat clear. Lungs: Rales in the left base. Heart: Regular rate and rhythm without murmurs, gallops, friction rubs. Abdomen: Soft. Active bowel sounds. No organomegaly or tenderness. Neurological: Intact grossly. MICROBIOLOGY: Blood cultures are negative so far. Sputum culture is pending. IMAGING: Chest x-ray showed maybe a little bit more consolidation there. Will get another chest x-ray tomorrow. ASSESSMENT: 1. Left lower lobe pneumonia. 2. History of lung cancer. PLAN: Continue treatment. Added Rocephin yesterday. cc: Domingo Carrington Jr, MD
[2019-04-15 08:56] LABS: CALCIUM 8.4 mg/dL (8.8-10.2); CREATININE 1.2 mg/dL (0.7-1.2); POTASSIUM 3.8 mmol/L (3.5-5.1)
[2019-04-15 08:59] LABS: BASO# 0.03 X1000 (0.0-0.2); BASO% 0.2 % (0.0-0.8); EOS# 0.16 X1000 (0.0-0.7); EOS% 1.3 % (0.0-10.0); HEMATOCRIT 34.3 % (42.0-52.0); HEMOGLOBIN 11.3 g/dL (14.0-18.0); IMM GRAN# 0.03 X1000 (0.0-0.04); IMM GRAN% 0.2 % (0.0-0.5); LYMPH# 0.76 X1000 (1.2-3.4); LYMPH% 6.3 % (20.5-51.1); MCH 31.1 PG (27-31); MCHC 32.9 g/dL (33-37); MCV 94.5 FL (81-99); MONO# 1.29 X1000 (0.11-0.59); MONO% 10.7 % (1.7-9.3); MPV 9.5 FL (7.4-10.4); NEUT# 9.82 X1000 (1.4-6.5); NEUT% 81.3 % (42.2-75.2); PLT 224 X1000 (130-400); RBC 3.63 XMIL (4.7-6.1); RDW 15.9 % (11.5-14.5); WBC 12.09 X1000 (4.8-10.8)
[2019-04-15] MEDS: FLEXERIL PO SCH (21:23)
[2019-04-15] MEDS: REQUIP PO SCH (21:24)
[2019-04-15] MEDS: LEVAQUIN 750 MG/D5W 750 MG/150 ML IVPB IV SCH (23:25)
--- NOTE | 2019-04-16 03:06 | PULMONOLOGY CONSULTATION ---
DATE: 04/15/2019 REQUESTING CLINICIAN: Dr. Domingo Carrington. REASON FOR CONSULTATION: Pneumonia with history of lung cancer. HISTORY OF PRESENT ILLNESS: Mr. Richardson is an 83-year-old male with COPD, status post left upper lobectomy in 1999, coronary artery disease who was evaluated by this practitioner 03/17/2018 when he developed a pneumonia after hip fracture. The patient did improve and was discharged home. Chest x-ray in December revealed postsurgical changes on the left, but no evidence of acute infiltrates. The patient was at his baseline until earlier this week when he developed fevers of 102, cough, increasing shortness of breath, with weakness and several falls. He presented to the emergency room with a temperature of 100.1 degrees along with significant leukocytosis. Chest x- ray was performed which revealed a new infiltrate at the left base. Chest x-ray was repeated this morning which reveals continued opacification at the left base with mild increased changes at the right base. Clinically, he reports he feels significantly better. PAST MEDICAL HISTORY: 1. Remote history of lung cancer as per above. 2. Coronary artery disease status post stent placement. 3. BPH without urinary retention. 4. Osteoarthritis. 5. Status post bilateral knee replacements. 6. History of mild to moderate pulmonary hypertension. 7. Dyslipidemia. 8. Hypertension. SOCIAL HISTORY: The patient has no recent tobacco use. 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 FAMILY HISTORY: Noncontributory to current presentation. REVIEW OF SYSTEMS: As noted in the HPI. PHYSICAL EXAMINATION: General: Reveals a well-developed, well-nourished white male who is awake, alert, and oriented x3. Vital Signs: Blood pressure is 179/87, heart rate 102, respiratory rate 20, oxygen saturation 96% on 4 L per nasal cannula. Temperature 98.9 degrees. HEENT: Pupils are equal and reactive. Oropharynx appears clear. Neck: Supple. Chest: Reveals rhonchi bilaterally with decreased breath sounds left base. Cardiac: S1-S2. Abdomen: Soft. Extremities: Without significant edema. LABORATORIES: Microbiology reveals no positive blood cultures. Sputum culture is pending. White blood count 12.09, hemoglobin 11.3, platelet count 224,000. Arterial blood gas on presentation to the emergency room, pH 7.46, pCO2 of 32, PO2 of 50. Sodium 134, potassium 3.8, chloride 100, bicarbonate 21, BUN 16, creatinine 1.2. IMPRESSION: An 83-year-old with: 1. Acute hypoxemic respiratory failure. 2. Community-acquired pneumonia. 3. Fevers. 4. Leukocytosis. 5. Remote history of lung cancer. DISCUSSION: An 83-year-old with problems outlined above. He currently is being treated with ceftriaxone and Levaquin. His white blood count is decreasing. Clinically, he is improving. If he continues to improve, I would not change his current regimen. If he does not continue to improve, I would consider expanding Pseudomonas coverage with Zosyn and gram-positive coverage with vancomycin. PLAN: 1. Continue current regimen as outlined above. 2. Continue bronchial hygiene. 3. Follow up CBC and chest x-ray tomorrow. cc: MD Domingo James Jr, MD
[2019-04-16] MEDS: DUONEB (A & A) INH SCH ×6 (03:13→23:05)
[2019-04-16] MEDS: TYLENOL PO PRN ×2 (03:22→17:12)
--- NOTE | 2019-04-16 07:03 | Diag Imaging Result Doc PS360 ---
EXAM: CHEST-PORTABLE HISTORY: pneumonia TECHNIQUE: Single view COMPARISON: 04/15/2019 FINDINGS: There are increased interstitial markings in both lower lungs as well as atelectasis. No cardiomegaly. Tiny right effusion. There are multiple left perihilar surgical clips and there is left apical pleural thickening. IMPRESSION: Persistent lower lung infiltrates and atelectasis Electronically signed by Valentin Russo 04/16/2019 7:00 AM
[2019-04-16 08:03] LABS: AGAP 13; BUN 17 mg/dL (8-22); CALCIUM 8.7 mg/dL (8.8-10.2); CHLORIDE 106 mmol/L (98-107); COSMO 279; CREATININE 1.1 mg/dL (0.7-1.2); ESTIMATED GFR > 60; GLUCOSE 97 mg/dL (70-104); POTASSIUM 3.9 mmol/L (3.5-5.1); SODIUM 139 mmol/L (136-145); TCO2 20 mmol/L (25-35)
[2019-04-16 08:33] LABS: BASO# 0.04 X1000 (0.0-0.2); BASO% 0.4 % (0.0-0.8); EOS# 0.36 X1000 (0.0-0.7); EOS% 3.6 % (0.0-10.0); HEMOGLOBIN 11.4 g/dL (14.0-18.0); IMM GRAN# 0.02 X1000 (0.0-0.04); IMM GRAN% 0.2 % (0.0-0.5); LYMPH# 1.24 X1000 (1.2-3.4); LYMPH% 12.5 % (20.5-51.1); MCH 30.6 PG (27-31); MCHC 32.6 g/dL (33-37); MCV 93.8 FL (81-99); MONO# 1.23 X1000 (0.11-0.59); MONO% 12.4 % (1.7-9.3); MPV 9.8 FL (7.4-10.4); NEUT# 7.05 X1000 (1.4-6.5); NEUT% 70.9 % (42.2-75.2); PLT 242 X1000 (130-400); RBC 3.73 XMIL (4.7-6.1); RDW 15.8 % (11.5-14.5); WBC 9.94 X1000 (4.8-10.8)
--- NOTE | 2019-04-16 08:56 | PROGRESS NOTE ---
DATE: 04/16/2019 SUBJECTIVE: The patient says he is feeling a little bit better. OBJECTIVE: Vital Signs: Temperature 98.1 degrees Fahrenheit, earlier it was 99.9 degrees Fahrenheit, blood pressure 176/81, respirations 18, pulse 93, oxygen saturation 91% with nasal cannula. HEENT: Normocephalic. EOMS intact. PERRLA. Throat clear. Lungs: Have rales in left base, a little dull on the right side because he has had surgery there. Chest x-ray still shows a little extra pulmonary edema, perhaps of interstitial edema but not much other change on chest x- ray. Heart: Regular rate and rhythm without murmurs, gallops, friction rubs. Abdomen: Soft. Active bowel sounds. No organomegaly or tenderness. Neurological: Intact grossly. LABORATORY DATA: White count has dropped from 16,000 down to 12,000. ASSESSMENT: 1. Left lower lobe pneumonia. 2. History of lung cancer. PLAN: Continue IV antibiotics. Appreciate Dr. Antoine seeing the patient. We certainly could make changes in his antibiotics if he clinically does not get better or if his chest x-ray gets worse, but right now he seems to be improving with Rocephin and Levaquin. We will watch closely, get another chest x-ray tomorrow. cc: Domingo Carrington Jr, MD
--- NOTE | 2019-04-16 08:59 | ECHO REPORT ---
ORDER DATE: 04/14/2019 MEASUREMENTS: 1. Septal thickness 1. 2. Left ventricular internal diameter in diastole 4.8. 3. Posterior wall thickness 1. 4. Left ventricular internal diameter in systole 3.7. 5. Aortic root 3.1. 6. Left atrium 3.6. SUMMARY: 1. Adequate quality study. 2. Aortic valve is trileaflet and opens normally on 2-dimensional images. Peak gradient across aortic valve is less than 10 mmHg. Mitral, tricuspid, and pulmonic valves are without evidence of structural abnormality with mild mitral regurgitation, mild tricuspid regurgitation, and moderate pulmonic insufficiency. Estimated systolic PA pressure by Doppler is 35 to 40 mmHg suggesting mild pulmonary hypertension. Aortic root is normal size. There is mild dilatation of proximal ascending aorta. 3. Normal left ventricular dimensions demonstrated. Estimated left ejection fraction approximately 50% to 55%. No regional wall motion abnormality can be appreciated. Doppler suggests grade 1 left ventricular diastolic dysfunction. Left atrium, right atrium, right ventricle are normal size with preserved right ventricular systolic function. 4. No pericardial effusion. 5. Appearance of inferior vena cava suggests normal central venous pressure. CONCLUSIONS: 1. Mild mitral regurgitation. 2. Mild tricuspid regurgitation. 3. Moderate pulmonic insufficiency. 4. Mild dilatation of proximal ascending aorta. 5. Estimated left ejection fraction 50% to 55%. 6. Grade 1 left ventricular diastolic dysfunction suggested. cc: MD Sheldon Burns MD Roger H. Moss Jr, MD
[2019-04-16] MEDS: ROCEPHIN 1 GM in NS 50 ML IV SCH ×2 (09:15→20:11)
[2019-04-16] MEDS: PRAVACHOL PO SCH (09:16)
[2019-04-16] MEDS: ASPIRIN PO SCH (09:16)
[2019-04-16] MEDS: ICAR-C PO SCH (09:16)
[2019-04-16] MEDS: PROTONIX PO SCH ×2 (09:16→20:11)
[2019-04-16] MEDS: TOPROL XL PO SCH (09:16)
[2019-04-16] MEDS: NS 1,000 ML IV SCH (16:11)
[2019-04-16] MEDS: ROBITUSSIN-DM PO PRN (17:12)
[2019-04-16] MEDS: LEVAQUIN 750 MG/D5W 750 MG/150 ML IVPB IV SCH (20:09)
[2019-04-16] MEDS: FLEXERIL PO SCH (20:11)
[2019-04-16] MEDS: REQUIP PO SCH (20:12)
--- NOTE | 2019-04-16 23:36 | PROVIDER PROGRESS NOTE ---
Progress Note Dr. Cheney Progress Note/Pulmonary and or critical care Subjective: The patient is sitting at the edge of the bed with moderate respiratory stress. He is on room air. He apparently just had a shower done and is wearing his T- shirt. He appears slightly blue. We help him put clothes on and put NC back. He was on 2L before. Now I increase it up to 3. Within 2 minutes, he calms down. He complains of occasional cough spell with left lower chest pain. His cough worsens at night with light production. Patients daughter is at the bedside. Objective: Vital Signs: T 97.7, BP 157/81, NV 81, RR 14, and SaO2 100% on NC 2L. Physical Examination: General: Sitting at the edge of the bed on room air with moderate respiratory stress initially. After putting NC 3L on, patient gets calm down within 2 minutes. HEENT: Normocephalic. Trachea midline. Mucosa pink and moist. Pupils equal round reactive to light. Chest: Tachypnea. Labored. Increased work of breathing, but no accessory muscle use noted. Symmetrical excursion. Diminished breathing sounds bibasilarly with left side worse than right side. CVS: S1 and S2 appreciated. Abdomen: Normoactive bowel sounds present. Nondistended. Nontender. Soft. Extremities: BLE cyanosis with significant varicose. No clubbing. No edema. Neuro: Pleasant. A/O x3. Speech fluent. Answer simple questions. Follow simple commands. Labs and Radiology: Laboratory Results 04/16/19 04/16/19 07:09 07:09 WBC 9.94 RBC 3.73 L Hgb 11.4 L Hct 35.0 L MCV 93.8 MCH 30.6 MCHC 32.6 L RDW Std Deviation 15.8 H Plt Count 242 MPV 9.8 Immature Gran % (Auto) 0.2 Neut % (Auto) 70.9 Lymph % (Auto) 12.5 L [place] % (Auto) 12.4 H Eos % (Auto) 3.6 Baso % (Auto) 0.4 Immature Gran # (Auto) 0.02 Neut # (Auto) 7.05 H Lymph # (Auto) 1.24 [place] # (Auto) 1.23 H Eos # (Auto) 0.36 Baso # (Auto) 0.04 Sodium 139 Potassium 3.9 Chloride 106 Carbon Dioxide 20 L Anion Gap 13 BUN 17 Creatinine 1.1 Estimated GFR/1.73 m2 > 60 BUN/Creatinine Ratio 15 Glucose 97 Calculated Osmolality 279 Calcium 8.7 L Assessment: Acute hypoxemic respiratory failure. Improving. Patient had been on NC 2L and tolerates well. Community-acquired pneumonia. Improving clinically. Radiographically stable. Leukocytosis resolved this morning. No fever in last 24 hours. CXR today shows persistent lower lung infiltrates and atelectasis. Remote history of lung cancer. Plan: Supplemental oxygen as needed. Continue antibiotics including Ceftriaxone and Levaquin. Continue bronchial hygiene. Start Cough syrup as needed. Follow up with CBC, BMP and CXR tomorrow.
[2019-04-17] MEDS: TYLENOL PO PRN ×4 (01:52→18:38)
[2019-04-17] MEDS: ROBITUSSIN-DM PO PRN ×5 (01:53→22:17)
[2019-04-17] MEDS: DUONEB (A & A) INH SCH ×6 (03:30→23:15)
[2019-04-17] MEDS: NS 1,000 ML IV SCH ×4 (05:17→22:10)
--- NOTE | 2019-04-17 07:09 | Diag Imaging Result Doc PS360 ---
EXAM: CHEST-PORTABLE 04/17/2019 HISTORY: pneumonia TECHNIQUE: AP portable at 0559 COMMENT: There is apical pleural thickening particularly on the left. There has been left upper lobectomy and retraction of the hilum superiorly. There is some improvement in the platelike atelectasis over the right base. There continues to be ill-defined interstitial opacity in both lower lung sharma particularly the left. IMPRESSION: Improved right lower lobe and/or middle lobe atelectasis. Electronically signed by Clinton Caceres 04/17/2019 7:07 AM
[2019-04-17 07:54] LABS: BASO# 0.03 X1000 (0.0-0.2); BASO% 0.3 % (0.0-0.8); EOS# 0.47 X1000 (0.0-0.7); HEMATOCRIT 35.4 % (42.0-52.0); HEMOGLOBIN 11.7 g/dL (14.0-18.0); IMM GRAN# 0.02 X1000 (0.0-0.04); IMM GRAN% 0.2 % (0.0-0.5); LYMPH# 1.18 X1000 (1.2-3.4); LYMPH% 12.5 % (20.5-51.1); MCH 30.6 PG (27-31); MCHC 33.1 g/dL (33-37); MCV 92.7 FL (81-99); MONO# 1.07 X1000 (0.11-0.59); MONO% 11.4 % (1.7-9.3); MPV 9.3 FL (7.4-10.4); NEUT# 6.65 X1000 (1.4-6.5); NEUT% 70.6 % (42.2-75.2); PLT 273 X1000 (130-400); RBC 3.82 XMIL (4.7-6.1); RDW 15.8 % (11.5-14.5); WBC 9.42 X1000 (4.8-10.8)
[2019-04-17 08:26] LABS: AGAP 12; BUN 15 mg/dL (8-22); CALCIUM 8.9 mg/dL (8.8-10.2); CHLORIDE 103 mmol/L (98-107); COSMO 277; ESTIMATED GFR > 60; GLUCOSE 101 mg/dL (70-104); POTASSIUM 3.8 mmol/L (3.5-5.1); SODIUM 138 mmol/L (136-145); TCO2 23 mmol/L (25-35)
[2019-04-17] MEDS: ICAR-C PO SCH (08:53)
[2019-04-17] MEDS: PRAVACHOL PO SCH (08:53)
[2019-04-17] MEDS: TOPROL XL PO SCH (08:53)
[2019-04-17] MEDS: ROCEPHIN 1 GM in NS 50 ML IV SCH ×2 (08:53→20:45)
[2019-04-17] MEDS: PROTONIX PO SCH ×2 (08:54→20:45)
--- NOTE | 2019-04-17 18:06 | PROVIDER PROGRESS NOTE ---
Progress Note Dr. Cheney Progress Note/Pulmonary and or critical care Subjective: The patient is sitting at the edge of the bed with no acute distress noted. He is on NC 3L. He still has some productive cough at times worse during nighttime which per patient is improving. He states the cough syrup helps some. Patients daughter is at the bedside. Objective: Vital Signs: T 98.2, BP 148/66, [place] 100, RR 21, and SaO2 95% on NC 3L. Physical Examination: General: Sitting at the edge of the bed on NC 3L with no acute distress noted. HEENT: Normocephalic. Trachea midline. Mucosa pink and moist. Pupils equal round reactive to light. Chest: Even and unlabored. No increased work of breathing. No accessory muscle use noted. Symmetrical excursion. Diminished breathing sounds in the left side of the lung. CVS: S1 and S2 appreciated. Abdomen: Normoactive bowel sounds present. Nondistended. Nontender. Soft. Extremities: BLE on compression hose and shoes. No edema. Neuro: Pleasant. A/O x3. Speech fluent. Answer simple questions. Follow simple commands. Labs and Radiology: Laboratory Results 04/17/19 04/17/19 07:28 07:28 WBC 9.42 RBC 3.82 L Hgb 11.7 L Hct 35.4 L MCV 92.7 MCH 30.6 MCHC 33.1 RDW Std Deviation 15.8 H Plt Count 273 MPV 9.3 Immature Gran % (Auto) 0.2 Neut % (Auto) 70.6 Lymph % (Auto) 12.5 L [place] % (Auto) 11.4 H Eos % (Auto) 5.0 Baso % (Auto) 0.3 Immature Gran # (Auto) 0.02 Neut # (Auto) 6.65 H Lymph # (Auto) 1.18 L [place] # (Auto) 1.07 H Eos # (Auto) 0.47 Baso # (Auto) 0.03 Sodium 138 Potassium 3.8 Chloride 103 Carbon Dioxide 23 L Anion Gap 12 BUN 15 Creatinine 1.0 Estimated GFR/1.73 m2 > 60 BUN/Creatinine Ratio 15 Glucose 101 Calculated Osmolality 277 Calcium 8.9 Assessment: Acute hypoxemic respiratory failure. Community-acquired pneumonia. Improving clinically. Radiographically improving. Leukocytosis resolved this morning. No fever in last 24 hours. CXR today shows improved right lower lobe +/- middle lobe atelectasis. Remote history of lung cancer. Plan: Supplemental oxygen as needed. Continue antibiotics including Ceftriaxone and Levaquin. Continue bronchial hygiene. Cough syrup as needed. Start incentive spirometer and encourage deep breathing.
[2019-04-17] MEDS: REQUIP PO SCH (20:45)
[2019-04-17] MEDS: FLEXERIL PO SCH (20:45)
[2019-04-17] MEDS: LEVAQUIN 750 MG/D5W 750 MG/150 ML IVPB IV SCH ×2 (20:46→22:10)
[2019-04-18] MEDS: DUONEB (A & A) INH SCH ×6 (03:40→22:41)
[2019-04-18] MEDS: ROBITUSSIN-DM PO PRN ×3 (06:22→20:10)
[2019-04-18 08:21] LABS: AGAP 15; BUN 15 mg/dL (8-22); CALCIUM 9.1 mg/dL (8.8-10.2); CHLORIDE 104 mmol/L (98-107); COSMO 281; CREATININE 1.1 mg/dL (0.7-1.2); ESTIMATED GFR > 60; GLUCOSE 105 mg/dL (70-104); POTASSIUM 3.6 mmol/L (3.5-5.1); SODIUM 140 mmol/L (136-145); TCO2 21 mmol/L (25-35)
[2019-04-18] MEDS: PRAVACHOL PO SCH (09:35)
[2019-04-18] MEDS: PROTONIX PO SCH ×2 (09:35→20:09)
[2019-04-18] MEDS: ROCEPHIN 1 GM in NS 50 ML IV SCH ×2 (09:35→20:09)
[2019-04-18] MEDS: ICAR-C PO SCH (09:36)
[2019-04-18] MEDS: TOPROL XL PO SCH (09:37)
[2019-04-18] MEDS: TYLENOL PO PRN ×3 (09:51→20:09)
--- NOTE | 2019-04-18 14:25 | PROGRESS NOTE ---
DATE: 04/18/2019 Mr. Chester is doing better. His lungs sound much better. Yesterday, chest x-ray showed improvement. We are going to repeat the chest x-ray. His electrolytes are normal. Blood sugar is within normal limits. We will continue the current management on him. -1 cc: MD Domingo Maurer Jr, MD
[2019-04-18] MEDS: NS 1,000 ML IV SCH (14:30)
--- NOTE | 2019-04-18 19:37 | PROVIDER PROGRESS NOTE ---
Progress Note Dr. Cheney Progress Note/Pulmonary and or critical care Subjective: The patient is sleeping at this time. He stays on NC 3L. Patients daughter is at the bedside. She reports that the cough has been improved. Objective: Vital Signs: T 97.4 (no fever in last 24 hours), BP 161/80, [place] 89, RR 18, and SaO2 94% on NC 3L. Physical Examination: General: Sleeping in bed on NC 3L with no acute distress noted. HEENT: Normocephalic. Trachea midline. Chest: Even and unlabored. No increased work of breathing. No accessory muscle use noted. Symmetrical excursion. Diminished breathing sounds in the left side of the lung. CVS: S1 and S2 appreciated. Abdomen: Normoactive bowel sounds present. Nondistended. Soft. Extremities: BLE on compression hose and shoes. Trace edema. Neuro: Sleeping. Labs and Radiology: Laboratory Results 04/18/19 07:30 Sodium 140 Potassium 3.6 Chloride 104 Carbon Dioxide 21 L Anion Gap 15 BUN 15 Creatinine 1.1 Estimated GFR/1.73 m2 > 60 BUN/Creatinine Ratio 14 Glucose 105 H Calculated Osmolality 281 Calcium 9.1 Assessment: Acute hypoxemic respiratory failure. Community-acquired pneumonia. Improving clinically. Radiographically improving. Leukocytosis resolved this morning. No fever in last 24 hours. CXR today shows improved right lower lobe +/- middle lobe atelectasis. Remote history of lung cancer. Plan: Supplemental oxygen as needed. Continue antibiotics including Ceftriaxone and Levaquin. On Day 4 today. Continue bronchial hygiene. Cough syrup as needed. Encourage incentive spirometer use routinely with deep breathing.
[2019-04-18] MEDS: FLEXERIL PO SCH (20:09)
[2019-04-18] MEDS: REQUIP PO SCH (20:10)
[2019-04-18] MEDS: LEVAQUIN 750 MG/D5W 750 MG/150 ML IVPB IV SCH (23:10)
[2019-04-19] MEDS: DUONEB (A & A) INH SCH ×6 (03:44→22:16)
--- NOTE | 2019-04-19 04:20 | PROGRESS NOTE ---
DATE: 04/17/2019 Mr. Richardson is recovering from acute hypoxemic respiratory failure. He has community-acquired pneumonia in the right lower and middle lobe with some atelectasis. X-ray shows improvement. His vital signs are stable. Lungs reveal severe congestion on the right side. The white count is normal. We will continue with the current management on him. -1 cc: MD Domingo Maurer Jr, MD
[2019-04-19] MEDS: NS 1,000 ML IV SCH ×3 (06:27→20:14)
[2019-04-19 07:55] LABS: AGAP 12; BUN 14 mg/dL (8-22); CALCIUM 8.8 mg/dL (8.8-10.2); CHLORIDE 105 mmol/L (98-107); COSMO 281; CREATININE 1.1 mg/dL (0.7-1.2); ESTIMATED GFR > 60; GLUCOSE 94 mg/dL (70-104); SODIUM 141 mmol/L (136-145); TCO2 24 mmol/L (25-35)
[2019-04-19] MEDS: PRAVACHOL PO SCH (08:29)
[2019-04-19] MEDS: ROCEPHIN 1 GM in NS 50 ML IV SCH ×2 (08:29→20:14)
[2019-04-19] MEDS: ICAR-C PO SCH (08:29)
[2019-04-19] MEDS: PROTONIX PO SCH ×2 (08:30→20:15)
[2019-04-19] MEDS: TOPROL XL PO SCH (08:30)
[2019-04-19] MEDS: ROBITUSSIN-DM PO PRN (08:34)
--- NOTE | 2019-04-19 08:34 | PROGRESS NOTE ---
DATE: 04/19/2019 SUBJECTIVE: The patient says he still feels tired but he has feels a little bit better. He is complaining of his restless legs syndrome and wonders if he can take his Requip during the day as well as at night. I will increase this to 0.5 mg p.o. b.i.d. OBJECTIVE: Blood pressure 178/96, earlier was 119/78, respirations 20, pulse 88, temperature 97.9 degrees Fahrenheit. HEENT: Normocephalic. EOMs intact. PERRLA. Throat clear. Lungs: Sound fairly clear to auscultation. Heart: Regular rate and rhythm without murmurs, gallops, or friction rubs. Abdomen: Soft. Active bowel sounds. No organomegaly or tenderness. Neurological: Examination intact grossly. Lab work is essentially normal. Two view chest x-ray pending. ASSESSMENT: 1. Pneumonia. 2. Restless legs syndrome. PLAN: Chest x-ray today. cc: Domingo Carrington Jr, MD
--- NOTE | 2019-04-19 10:19 | Diag Imaging Result Doc PS360 ---
CHEST-2 VIEWS - 04/19/2019 INDICATION: pneumonia COMPARISON: 04/17/2019 FINDINGS: Stable bibasilar infiltrates, left greater than right. No large pleural effusion. Lungs are better expanded. Heart size remains normal. IMPRESSION: Stable bibasilar opacities most consistent with pneumonia, left greater than right. Electronically signed by Kash Engle 04/19/2019 10:17 AM
[2019-04-19] MEDS: REQUIP PO SCH ×2 (10:41→20:14)
--- NOTE | 2019-04-19 17:26 | PROVIDER PROGRESS NOTE ---
Progress Note Dr. Cheney Progress Note/Pulmonary and or critical care Subjective: The patient is sitting at the edge of the bed. He stays on NC 3L. He reports improving cough. He apparently took cough syrup this morning. He appears in a good mood. He is sharing his skydive album with me. Objective: Vital Signs: T 97.9 (no fever in last 24 hours), BP 178/96, [place] 88, RR 20, and SaO2 97% on NC 3L. Physical Examination: General: Sitting at the edge of the bed on NC 3L with no acute distress noted. HEENT: Normocephalic. Trachea midline. Chest: Even and unlabored. No increased work of breathing. No accessory muscle use noted. Symmetrical excursion. Diminished breathing sounds in the left side of the lung with some crackles in the left base. CVS: S1 and S2 appreciated. Abdomen: Normoactive bowel sounds present. Nondistended. Soft. Extremities: BLE on compression hose and shoes. Trace edema. Neuro: A/O x3. Speech fluent. Follow commands. Labs and Radiology: Laboratory Results 04/16/19 04/19/19 07:09 07:03 Sodium 141 Potassium 4.0 Chloride 105 Carbon Dioxide 24 L Anion Gap 12 BUN 14 Creatinine 1.1 Estimated GFR/1.73 m2 > 60 BUN/Creatinine Ratio 13 Glucose 94 Calculated Osmolality 281 Calcium 8.8 Serum IEP SEE COMMENTS Assessment: Acute hypoxemic respiratory failure. Community-acquired pneumonia. Improving clinically. Leukocytosis resolved. No fever in last 24 hours. CXR today shows stable bibasilar opacities most consistently with pneumonia, left worse than right. Remote history of lung cancer. Plan: Supplemental oxygen as needed. Continue antibiotics including Ceftriaxone and Levaquin. On Day 6 today. Continue bronchial hygiene. Cough syrup as needed. Encourage incentive spirometer use routinely with deep breathing.
[2019-04-19] MEDS: FLEXERIL PO SCH (20:15)
[2019-04-19] MEDS: LEVAQUIN 750 MG/D5W 750 MG/150 ML IVPB IV SCH (23:31)
[2019-04-20] MEDS: DUONEB (A & A) INH SCH ×6 (03:58→22:35)
[2019-04-20 07:36] LABS: BASO# 0.06 X1000 (0.0-0.2); BASO% 0.7 % (0.0-0.8); EOS# 0.57 X1000 (0.0-0.7); EOS% 6.6 % (0.0-10.0); HEMOGLOBIN 11.1 g/dL (14.0-18.0); IMM GRAN# 0.03 X1000 (0.0-0.04); IMM GRAN% 0.3 % (0.0-0.5); LYMPH# 1.88 X1000 (1.2-3.4); LYMPH% 21.9 % (20.5-51.1); MCH 30.5 PG (27-31); MCHC 32.6 g/dL (33-37); MCV 93.4 FL (81-99); MONO# 0.79 X1000 (0.11-0.59); MONO% 9.2 % (1.7-9.3); MPV 8.9 FL (7.4-10.4); NEUT# 5.25 X1000 (1.4-6.5); NEUT% 61.3 % (42.2-75.2); PLT 308 X1000 (130-400); RBC 3.64 XMIL (4.7-6.1); WBC 8.58 X1000 (4.8-10.8)
[2019-04-20 08:05] LABS: AGAP 11; BUN 13 mg/dL (8-22); CALCIUM 8.7 mg/dL (8.8-10.2); CHLORIDE 107 mmol/L (98-107); COSMO 279; ESTIMATED GFR > 60; GLUCOSE 87 mg/dL (70-104); POTASSIUM 3.7 mmol/L (3.5-5.1); SODIUM 140 mmol/L (136-145); TCO2 22 mmol/L (25-35)
--- NOTE | 2019-04-20 08:34 | PROGRESS NOTE ---
DATE: 04/20/2019 SUBJECTIVE: Patient, I think he is feeling a little bit better. He has coughed up some greenish sputum. He has had no fever. Chest x-ray shows stable infiltrates in the bases worse on the left than the right, not much change since the last x-ray. OBJECTIVE: Vital signs: Blood pressure 144/69, respirations 16, pulse 87, temperature is 97.4 degrees Fahrenheit. HEENT: Normocephalic. EOMS intact. PERRLA. Throat clear. Lungs: Anteriorly have a little wheeze, posteriorly I hear some rales in the left base. Abdomen: Soft, active bowel sounds. No organomegaly or tenderness. Neurological Exam: Intact grossly. The patient says his restless leg syndrome is better since I increased his Requip. ASSESSMENT: 1. Bilateral lower lobe pneumonia worse on the left than the right. 2. Status post lung cancer. 3. Restless leg syndrome. PLAN: Will continue care, get another chest x-ray tomorrow. cc: Domingo Carrington Jr, MD
[2019-04-20] MEDS: ROCEPHIN 1 GM in NS 50 ML IV SCH ×2 (08:38→21:16)
[2019-04-20] MEDS: NS 1,000 ML IV SCH (08:39)
[2019-04-20] MEDS: TOPROL XL PO SCH (08:40)
[2019-04-20] MEDS: PRAVACHOL PO SCH (08:41)
[2019-04-20] MEDS: PROTONIX PO SCH ×2 (08:41→21:39)
[2019-04-20] MEDS: ICAR-C PO SCH (08:42)
[2019-04-20] MEDS: TYLENOL PO PRN ×2 (08:54→21:48)
[2019-04-20] MEDS: REQUIP PO SCH ×2 (09:20→21:38)
--- NOTE | 2019-04-20 18:40 | PROVIDER PROGRESS NOTE ---
Progress Note Dr. Cheney Progress Note/Pulmonary and or critical care Subjective: The patient is lying in bed sleeping at this time. His daughter is sleeping at the bedside couch, too. RN reports patient has no complaint this morning. Objective: Vital Signs: T 97.4 (no fever in last 24 hours), BP 144/69, [place] 87, RR 16, and SaO2 92% on NC 2L. Physical Examination: General: Lying in bed sleeping on NC 3L with no acute distress noted. HEENT: Normocephalic. Trachea midline. Chest: Even and unlabored. No increased work of breathing. No accessory muscle use noted. Symmetrical excursion. Good air entry bilaterally with some crackles in the left base posteriorly. CVS: S1 and S2 appreciated. Abdomen: Normoactive bowel sounds present. Nondistended. Soft. Extremities: BLE on compression hose and shoes. Trace edema. Neuro: Sleeping. Labs and Radiology: Laboratory Results 04/20/19 04/20/19 07:07 07:07 WBC 8.58 RBC 3.64 L Hgb 11.1 L Hct 34.0 L MCV 93.4 MCH 30.5 MCHC 32.6 L RDW Std Deviation 16.0 H Plt Count 308 MPV 8.9 Immature Gran % (Auto) 0.3 Neut % (Auto) 61.3 Lymph % (Auto) 21.9 [place] % (Auto) 9.2 Eos % (Auto) 6.6 Baso % (Auto) 0.7 Immature Gran # (Auto) 0.03 Neut # (Auto) 5.25 Lymph # (Auto) 1.88 [place] # (Auto) 0.79 H Eos # (Auto) 0.57 Baso # (Auto) 0.06 Sodium 140 Potassium 3.7 Chloride 107 Carbon Dioxide 22 L Anion Gap 11 BUN 13 Creatinine 1.0 Estimated GFR/1.73 m2 > 60 BUN/Creatinine Ratio 13 Glucose 87 Calculated Osmolality 279 Calcium 8.7 L Assessment: Acute hypoxemic respiratory failure. Community-acquired pneumonia. Improving clinically. Leukocytosis resolved. No fever in last 24 hours. CXR today shows stable bibasilar opacities most consis tently with pneumonia, left worse than right. Remote history of lung cancer. Plan: Supplemental oxygen as needed. Continue antibiotics including Ceftriaxone and Levaquin. On Day8 today. Continue bronchial hygiene. Cough syrup as needed. Encourage incentive spirometer use routinely with deep breathing.
[2019-04-20] MEDS: FLEXERIL PO SCH (21:37)
[2019-04-20] MEDS: ROBITUSSIN-DM PO PRN (21:44)
[2019-04-20] MEDS: LEVAQUIN 750 MG/D5W 750 MG/150 ML IVPB IV SCH (21:55)
[2019-04-21] MEDS: NS 1,000 ML IV SCH ×2 (03:35→20:27)
[2019-04-21] MEDS: DUONEB (A & A) INH SCH ×5 (05:48→19:20)
--- NOTE | 2019-04-21 07:20 | Diag Imaging Result Doc PS360 ---
EXAM: CHEST-PORTABLE HISTORY: pneumonia TECHNIQUE: Single view COMPARISON: 04/19/2019 FINDINGS: There are postsurgical changes in the left hemithorax. Dense infiltrates remain in the left lung base. There is biapical pleural thickening and scarring. Questionable right apical infiltrate. There is atelectasis in the right base. No cardiomegaly. IMPRESSION: No interval improvement Electronically signed by Valentin Russo 04/21/2019 7:18 AM
[2019-04-21 07:53] LABS: BASO# 0.05 X1000 (0.0-0.2); BASO% 0.7 % (0.0-0.8); EOS# 0.63 X1000 (0.0-0.7); EOS% 8.3 % (0.0-10.0); HEMATOCRIT 35.5 % (42.0-52.0); HEMOGLOBIN 11.6 g/dL (14.0-18.0); IMM GRAN# 0.04 X1000 (0.0-0.04); IMM GRAN% 0.5 % (0.0-0.5); LYMPH# 1.79 X1000 (1.2-3.4); LYMPH% 23.6 % (20.5-51.1); MCH 30.5 PG (27-31); MCHC 32.7 g/dL (33-37); MCV 93.4 FL (81-99); MONO# 0.73 X1000 (0.11-0.59); MONO% 9.6 % (1.7-9.3); MPV 8.9 FL (7.4-10.4); NEUT# 4.33 X1000 (1.4-6.5); NEUT% 57.3 % (42.2-75.2); PLT 357 X1000 (130-400); WBC 7.57 X1000 (4.8-10.8)
[2019-04-21] MEDS ORDERED: VANCOMYCIN IV PER PHARMACY MISC SCH (08:00)
[2019-04-21 08:17] LABS: AGAP 10; BUN 14 mg/dL (8-22); CALCIUM 8.9 mg/dL (8.8-10.2); CHLORIDE 107 mmol/L (98-107); COSMO 281; ESTIMATED GFR > 60; GLUCOSE 88 mg/dL (70-104); SODIUM 141 mmol/L (136-145); TCO2 24 mmol/L (25-35)
--- NOTE | 2019-04-21 08:29 | PROGRESS NOTE ---
DATE: 04/21/2019 SUBJECTIVE: The patient says he is feeling a little bit better. His daughter was in the room as well. Apparently, she spent the tonight on the sofa. Clinically he seems to be feeling better and doing better. OBJECTIVE: Vital Signs: Blood pressure 151/77, respirations 18, pulse 80, temperature 98.2 degrees. HEENT: Normocephalic. EOMS intact. PERRLA. Throat clear. Lungs: Sound fairly clear to auscultation. Heart: Regular rate and rhythm without murmurs, gallops, friction rubs. Abdomen: Soft. Active bowel sounds. No organomegaly or tenderness. Neurological: Intact grossly. LABORATORY DATA: White count 7570, hemoglobin 11.6, hematocrit 35.5. IMAGING: Chest x-ray has been stable but has not shown any improvement over the last 2 or 3 chest x-rays. ASSESSMENT: 1. Pneumonia, worse on the left. 2. Status post lung cancer. 3. Restless legs syndrome, which is better. PLAN: We will add vancomycin to his regimen since his chest x-ray has not improved. We will get another chest x-ray tomorrow. Clinically, he is doing better and though chest x-ray may follow the clinical course by several days, we just have not seen as much improvement as I would like to see, though his white count is normal now. cc: Domingo Carrington Jr, MD
[2019-04-21] MEDS: ICAR-C PO SCH (09:45)
[2019-04-21] MEDS: PROTONIX PO SCH ×2 (09:45→20:34)
[2019-04-21] MEDS: TOPROL XL PO SCH (09:46)
[2019-04-21] MEDS: REQUIP PO SCH ×2 (09:46→20:33)
[2019-04-21] MEDS: PRAVACHOL PO SCH (09:47)
[2019-04-21] MEDS: ROCEPHIN 1 GM in NS 50 ML IV SCH ×2 (09:47→20:31)
[2019-04-21] MEDS: ROBITUSSIN-DM PO PRN (09:48)
[2019-04-21] MEDS ORDERED: VANCOMYCIN 2.5 GM in NS 500 ML IV ONE (10:00)
[2019-04-21] MEDS: MUCOMYST 20% INH SCH ×2 (15:50→19:20)
--- NOTE | 2019-04-21 18:42 | PROVIDER PROGRESS NOTE ---
Progress Note Dr. Cheney Progress Note/Pulmonary and or critical care Subjective: The patient is sitting at the edge of the time. He still has cough with light production at times. He does cough some during my encounter, too. He took cough syrup this morning. His daughter is at the bedside. Objective: Vital Signs: T 98.1 (no fever in last 24 hours), BP 152/91, [place] 94, RR 20, and SaO2 98% on NC 2L. Physical Examination: General: Sitting at the edge of the bed with no acute distress noted. HEENT: Normocephalic. Trachea midline. Mucosa pink and moist. Oropharynx clear. Chest: Even and unlabored. No increased work of breathing. No accessory muscle use noted. Symmetrical excursion. Good air entry bilaterally with some improving crackles in the left base posteriorly. CVS: S1 and S2 appreciated. Abdomen: Normoactive bowel sounds present. Nondistended. Non-tender. Soft. Extremities: BLE on compression hose and shoes. Trace edema. Neuro: A/O x3. Pleasant. Answer questions. Follow commands. Labs and Radiology: Laboratory Results 04/21/19 04/21/19 07:20 07:20 WBC 7.57 RBC 3.80 L Hgb 11.6 L Hct 35.5 L MCV 93.4 MCH 30.5 MCHC 32.7 L RDW Std Deviation 16.0 H Plt Count 357 MPV 8.9 Immature Gran % (Auto) 0.5 Neut % (Auto) 57.3 Lymph % (Auto) 23.6 [place] % (Auto) 9.6 H Eos % (Auto) 8.3 Baso % (Auto) 0.7 Immature Gran # (Auto) 0.04 Neut # (Auto) 4.33 Lymph # (Auto) 1.79 [place] # (Auto) 0.73 H Eos # (Auto) 0.63 Baso # (Auto) 0.05 Sodium 141 Potassium 4.0 Chloride 107 Carbon Dioxide 24 L Anion Gap 10 BUN 14 Creatinine 1.0 Estimated GFR/1.73 m2 > 60 BUN/Creatinine Ratio 14 Glucose 88 Calculated Osmolality 281 Calcium 8.9 Assessment: Acute hypoxemic respiratory failure. Community-acquired pneumonia. Improving clinically. Leukocytosis resolved. No fever noted since 04/16/19. CXR today shows no interval improvement. Remote history of lung cancer. Plan: Supplemental oxygen as needed. Weaning oxygen as tolerated. Continue antibiotics including Ceftriaxone and Levaquin. On Day 8 today. Continue bronchial hygiene. We are adding Mucomyst today. Cough syrup as needed. Encourage incentive spirometer use routinely with deep breathing.
[2019-04-21] MEDS: FLEXERIL PO SCH (20:33)
[2019-04-21] MEDS: LEVAQUIN 750 MG/D5W 750 MG/150 ML IVPB IV SCH (22:45)
[2019-04-22] MEDS: DUONEB (A & A) INH SCH ×6 (05:16→23:20)
--- NOTE | 2019-04-22 07:20 | Diag Imaging Result Doc PS360 ---
EXAM: CHEST-PORTABLE 04/22/2019 HISTORY: pneumonia TECHNIQUE: AP portable at 0542 COMMENT: There is apical pleural thickening and volume loss with retraction of the hilum superiorly presumably status post left upper lobectomy. There is ill-defined opacity in the left base which has improved slightly since 04/21/2019. There is still platelike opacity over the right base. IMPRESSION: Improved left lower lobe pneumonia. Electronically signed by Clinton Caceres 04/22/2019 7:18 AM
[2019-04-22 08:01] LABS: BASO# 0.05 X1000 (0.0-0.2); BASO% 0.7 % (0.0-0.8); EOS# 0.55 X1000 (0.0-0.7); EOS% 7.2 % (0.0-10.0); HEMATOCRIT 34.8 % (42.0-52.0); HEMOGLOBIN 11.3 g/dL (14.0-18.0); IMM GRAN# 0.03 X1000 (0.0-0.04); IMM GRAN% 0.4 % (0.0-0.5); LYMPH# 1.82 X1000 (1.2-3.4); LYMPH% 23.9 % (20.5-51.1); MCH 30.5 PG (27-31); MCHC 32.5 g/dL (33-37); MCV 93.8 FL (81-99); MONO# 0.55 X1000 (0.11-0.59); MONO% 7.2 % (1.7-9.3); MPV 8.8 FL (7.4-10.4); NEUT# 4.63 X1000 (1.4-6.5); NEUT% 60.6 % (42.2-75.2); PLT 351 X1000 (130-400); RBC 3.71 XMIL (4.7-6.1); RDW 15.9 % (11.5-14.5); WBC 7.63 X1000 (4.8-10.8)
[2019-04-22] MEDS: MUCOMYST 20% INH SCH ×2 (08:01→19:25)
[2019-04-22 08:19] LABS: AGAP 8; BUN 16 mg/dL (8-22); CHLORIDE 105 mmol/L (98-107); COSMO 278; CREATININE 1.1 mg/dL (0.7-1.2); ESTIMATED GFR > 60; GLUCOSE 91 mg/dL (70-104); POTASSIUM 3.9 mmol/L (3.5-5.1); SODIUM 139 mmol/L (136-145); TCO2 26 mmol/L (25-35)
--- NOTE | 2019-04-22 08:50 | PROGRESS NOTE ---
DATE: 04/22/2019 SUBJECTIVE: The patient says he is feeling better. Chest x-ray does look a little better with some clearing of the left lower infiltrate. I did add vancomycin yesterday, not sure whether this has made a difference or whether it would have gotten better anyway. He has had a normal white count for several days. He has had no fever. Certainly seems to be getting better. OBJECTIVE: Vital Signs: Blood pressure is 164/89, respirations 20, pulse 84, temperature 97.6 degrees Fahrenheit. HEENT: Normocephalic. EOMS intact. PERRLA. Throat clear. Lungs: Have a few rales in the left base. Heart: Regular rate and rhythm without murmurs, gallops, friction rubs. Abdomen: Soft. Active bowel sounds. No megaly or tenderness. Neurological exam: Intact grossly. He is coughing up some off-white looking sputum. Cultures of sputum showed normal sammi and just a few yeast. ASSESSMENT: 1. Bilateral lower lobe pneumonia, worse on the left than the right. 2. History of lung cancer. PLAN: Continue treatment. Get another chest x-ray tomorrow. cc: Domingo Carrington Jr, MD
[2019-04-22] MEDS: ROCEPHIN 1 GM in NS 50 ML IV SCH ×2 (10:10→22:47)
[2019-04-22] MEDS: ICAR-C PO SCH (10:11)
[2019-04-22] MEDS: PRAVACHOL PO SCH (10:12)
[2019-04-22] MEDS: PROTONIX PO SCH ×2 (10:12→22:49)
[2019-04-22] MEDS: REQUIP PO SCH ×2 (10:13→22:50)
[2019-04-22] MEDS: TOPROL XL PO SCH (10:13)
[2019-04-22] MEDS: ROBITUSSIN-DM PO PRN ×2 (10:19→22:53)
[2019-04-22] MEDS: TYLENOL PO PRN ×2 (10:19→22:53)
[2019-04-22] MEDS: VANCOMYCIN 2 GM in NS 500 ML IV SCH (11:17)
[2019-04-22] MEDS: NS 1,000 ML IV SCH (16:49)
--- NOTE | 2019-04-22 17:32 | PROVIDER PROGRESS NOTE ---
Progress Note Dr. Cheney Progress Note/Pulmonary and or critical care Subjective: The patient is lying in bed with no acute distress noted. He states he is feeling fine and he is ready to go home. 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 Objective: Vital Signs: T 97.6 (no fever in last 24 hours), BP 164/89, [place] 84, RR 20, and SaO2 96% on NC 2L. Physical Examination: General: Lying in bed with no acute distress noted. HEENT: Normocephalic. Trachea midline. Mucosa pink and moist. Oropharynx clear. Chest: Even and unlabored. No increased work of breathing. No accessory muscle use noted. Symmetrical excursion. Good air entry bilaterally with some improving crackles in the left base posteriorly. CVS: S1 and S2 appreciated. Abdomen: Normoactive bowel sounds present. Nondistended. Non-tender. Soft. Extremities: BLE on compression hose and shoes. Trace edema. Neuro: A/O x3. Pleasant. Answer questions. Follow commands. Labs and Radiology: Laboratory Results 04/22/19 04/22/19 07:27 07:27 WBC 7.63 RBC 3.71 L Hgb 11.3 L Hct 34.8 L MCV 93.8 MCH 30.5 MCHC 32.5 L RDW Std Deviation 15.9 H Plt Count 351 MPV 8.8 Immature Gran % (Auto) 0.4 Neut % (Auto) 60.6 Lymph % (Auto) 23.9 [place] % (Auto) 7.2 Eos % (Auto) 7.2 Baso % (Auto) 0.7 Immature Gran # (Auto) 0.03 Neut # (Auto) 4.63 Lymph # (Auto) 1.82 [place] # (Auto) 0.55 Eos # (Auto) 0.55 Baso # (Auto) 0.05 Sodium 139 Potassium 3.9 Chloride 105 Carbon Dioxide 26 Anion Gap 8 BUN 16 Creatinine 1.1 Estimated GFR/1.73 m2 > 60 BUN/Creatinine Ratio 15 Glucose 91 Calculated Osmolality 278 Calcium 9.0 Assessment: Acute hypoxemic respiratory failure. Community-acquired pneumonia. Improving clinically. Leukocytosis resolved. No fever noted since 04/16/19. CXR today shows improved LLL pneumonia. Remote history of lung cancer. Plan: Supplemental oxygen as needed. Weaning oxygen as tolerated. Continue antibiotics including Ceftriaxone and Levaquin. On Day 9 today. Continue bronchial hygiene and Mucomyst. Cough syrup as needed. Encourage incentive spirometer use routinely with deep breathing.
[2019-04-22] MEDS: FLEXERIL PO SCH (22:49)
[2019-04-22] MEDS: LEVAQUIN 750 MG/D5W 750 MG/150 ML IVPB IV SCH (23:30)
[2019-04-23] MEDS: DUONEB (A & A) INH SCH ×3 (03:15→12:26)
--- NOTE | 2019-04-23 07:50 | Diag Imaging Result Doc PS360 ---
CHEST-PORTABLE - 04/23/2019 INDICATION: pneumonia COMPARISON: 04/22/2019 FINDINGS: Stable extensive pulmonary fibrosis. No new infiltrates. Heart size remains normal. Stable surgical changes to the left lung. IMPRESSION: No change from prior. Electronically signed by Kash Engle 04/23/2019 7:48 AM
[2019-04-23 07:51] VITALS: BP 161/86
[2019-04-23] MEDS: MUCOMYST 20% INH SCH (08:11)
--- NOTE | 2019-04-23 08:42 | DISCHARGE SUMMARY ---
ADMISSION DATE: 04/13/2019 DISCHARGE DATE: 04/23/2019 FINAL DIAGNOSIS: Bilateral lower lobe pneumonia, worse on the left than the right. SECONDARY DIAGNOSES: 1. History of lung cancer. 2. Hyperlipidemia. 3. Gastroesophageal reflux disease. 4. Restless legs syndrome. 5. Hypertension. 6. Coronary artery disease. 7. History of peptic ulcer disease. MEDICATIONS: He will be discharged home on Levaquin 750 mg daily for 10 days. FOLLOWUP: We will see him back in my office next week. HISTORY OF PRESENT ILLNESS/HOSPITAL COURSE: The patient is an 83-year-old who came in with shortness of breath initially to [facility]. He was somewhat hypoxic on his blood gas with a oxygen level of only 50, pCO2 of 32, pH 7.46. It felt like he needed to be in the hospital at that time for hypoxic respiratory distress and pneumonia. He was initially placed on Rocephin and Levaquin and improved clinically with this. Chest x-ray still showed some pneumonia, so a couple of days ago we added vancomycin. He had some improvement with his chest x- ray and it has been stable since, but has improved overall. He does feel much better. He is getting up and moving around. What he is coughing up is white to slightly off white colored. His sputum cultures had mixed sammi. Blood cultures were negative. Initial white count of 16,150 and has had a normal white count for the last several days. PHYSICAL EXAMINATION: Vital Signs: On physical examination, temperature is 97.9 degrees Fahrenheit, blood pressure 161/86, respirations 16, pulse 86. HEENT: He is normocephalic. EOMs intact. PERRLA. Throat clear. Lungs: Sound clear to auscultation and percussion without rhonchi, rales, or wheezes. At this time, he does have some dullness to the left apical area where he has had surgery. Heart: Regular rate and rhythm without murmurs, gallops, friction rubs. Abdomen: Soft, active bowel sounds. No organomegaly or tenderness. Neurological: Intact grossly. PLAN: We will discharge home with his home medicines and his Levaquin and see him back in the office mid to late next week or sooner if he has any problems. CONSULTATION: A consultation was made with Pulmonology, Dr. Antoine and Dr. Cheney each saw him. cc: Domingo Carrington Jr, MD
[2019-04-23] MEDS: ICAR-C PO SCH (09:08)
[2019-04-23] MEDS: TOPROL XL PO SCH (09:08)
[2019-04-23] MEDS: ROCEPHIN 1 GM in NS 50 ML IV SCH (09:09)
[2019-04-23] MEDS: REQUIP PO SCH (09:09)
[2019-04-23] MEDS: NS 1,000 ML IV SCH (09:09)
[2019-04-23] MEDS: PRAVACHOL PO SCH (09:09)
[2019-04-23] MEDS: PROTONIX PO SCH (09:09)
[2019-04-23] MEDS: TYLENOL PO PRN (09:15)
[2019-04-23] MEDS: ROBITUSSIN-DM PO PRN (09:16)
[2019-04-23] MEDS: VANCOMYCIN 2 GM in NS 500 ML IV SCH (11:16)
== END 2019-04-23 14:27 | disposition home or self-care (01) | DRG 193 ==
LOC: P.ED 18:17 → 3N 22:04 → SUATTDRO 22:04 → 3N 04-14 18:01
PROVIDERS: ADMIT Emergency Medicine; ATTEND Emergency Medicine